=== PATIENT | male | born 1955 | race Caucasian/White ===

== ENCOUNTER 2018-12-07 08:26 | Inpatient (IN) | payer OTHER | END 2018-12-09 12:10 | disposition home or self-care (01) | LOC: ER 08:26 → ED HOLD 12:50 → SUR 3N 23:30 ==

== ENCOUNTER 2019-11-13 07:45 | Emergency (ER) | payer OTHER ==
[~2019-11-13] VITALS: Ht 177.8 cm; Wt 110.0 kg
[~2019-11-13 07:45] MED LIST: ALBU8.5H8 INH; AMLO10TA PO; ASPI-1265 PO; ATOR20TA66 PO; BUDE180A INH; GLYB5TAB7 PO; GLYC10.7 INH; IPRA3AMP31 IH; LACT1CAP26 PO; LEVO750T46 PO; LINA5TAB4 PO; LOSA100T57 PO; METF-950 PO; PRED10TA23 PO
[2019-11-13] MEDS ORDERED: ipratropium/albuterol 3ml nebule NEB ONE (08:00)
--- NOTE | 2019-11-13 08:02 | NUR ---
spoke to JUDE Daniel, regarding o2 sats 89-90% RA and if we should put pt. on O2, he said to wait until breathing tx and we will re-assess the situation.
[2019-11-13 08:32] VITALS: BP 152/87
== END 2019-11-13 08:34 | disposition home or self-care (01) ==
LOC: ER 07:45
DX: J44.9 Chronic obstructive pulmonary disease, unspecified (principal); I11.0 Hypertensive heart disease with heart failure; I50.9 Heart failure, unspecified; E11.9 Type 2 diabetes mellitus without complications; Z87.01 Personal history of pneumonia (recurrent); Z79.899 Other long term (current) drug therapy; Z79.82 Long term (current) use of aspirin
CPT/HCPCS: 71046; 94640; 94760; 99283

== ENCOUNTER 2019-11-20 08:58 | Inpatient (IN) | payer OTHER ==
[~2019-11-20] VITALS: Ht 177.8 cm; Wt 112.0 kg
[2019-11-20] MEDS ORDERED: azithromycin/NS 500mg/250ml 250 ML IV ONE (09:20)
[2019-11-20] MEDS ORDERED: normal saline 1000ML IV soln IV ONE (09:20)
[2019-11-20] MEDS ORDERED: methylPREDNISolone sod succ 125mg/2ml vial IV ONE (09:20)
[2019-11-20] MEDS ORDERED: albuterol 2.5 MG/3 ML nebule CONTNEB PRN (09:20)
[2019-11-20] MEDS ORDERED: CefTRIAXone 2gm/D5W 50ml 50 ML IV ONE (09:20)
[2019-11-20 09:49] LABS: BASOPHILS # (AUTO) 0.1 X10'3 (0-0.2); BASOPHILS % (AUTO) 0.3 % (0-1); EOSINOPHILS # (AUTO) 0.1 X10'3 (0-0.9); EOSINOPHILS % (AUTO) 0.4 % (0-6); HEMATOCRIT 45.9 % (42.0-52.0); HEMOGLOBIN 15.6 g/dl (14.0-17.9); LYMPHOCYTES % (AUTO) 6.8 % (21-51); MEAN CORPUSCULAR HEMOGLOBIN 29.4 PG (27.0-31.0); MEAN CORPUSCULAR VOLUME 86.4 FL (78-98); MEAN PLATELET VOLUME 7.9 FL (7.4-10.4); MONOCYTES # (AUTO) 0.7 X10'3 (0-0.9); MONOCYTES % (AUTO) 4.4 % (2-12); NEUTROPHILS # (AUTO) 13.1 X10'3 (1.8-7.7); NEUTROPHILS % (AUTO) 88.1 % (42-75); PLATELET COUNT 127 X10'3 (140-440); RED BLOOD COUNT 5.31 X10'6 (4.70-6.10); RED CELL DISTRIBUTION WIDTH 12.7 % (11.5-14.5); WHITE BLOOD COUNT 14.9 X10'3 (4.5-11.0)
[2019-11-20 09:56] LABS: ABG BASE EXCESS -0.9 mmol/L (-2.0-3.0); ABG HCO3 22.2 mmol/L (22.0-26.0); ABG OXYGEN SATURATION 84.1 % (95-98); ABG PCO2 (T) 32.8 mmHg (35.0-45.0); ABG PH (T) 7.449 (7.350-7.450); ABG PO2 (T) 45.8 mmHg (83-108); FCOHb 0.8 % (0.5-1.5); FLOW 4 L/min; FMetHb 0.1 % (0.3-1.12); FO2Hb 83.3 % (94-100); TOTAL HEMOGLOBIN 15.5 G/dl (14.0-17.9)
[2019-11-20 10:00] LABS: ALANINE AMINOTRANSFERASE 27 U/L (12-78); ALBUMIN 3.7 G/DL (3.4-5.0); ALKALINE PHOSPHATASE 99 IU/L (46-116); ANION GAP 11 (8-16); ASPARTATE AMINO TRANSFERASE 15 U/L (10-37); BILIRUBIN,TOTAL 0.9 MG/DL (0.1-1.0); BLOOD UREA NITROGEN 17 MG/DL (7-18); BUN/CREATININE RATIO 15.7 (5.4-32.0); CALCIUM 8.7 MG/DL (8.5-10.1); CHLORIDE 98 MMOL/L (99-107); CREATININE 1.08 MG/DL (0.60-1.10); GLUCOSE 329 MG/DL (70-104); POTASSIUM 3.6 MMOL/L (3.5-5.1); SODIUM 135 MMOL/L (135-145); TOTAL CARBON DIOXIDE 25.6 MMOL/L (24-32); TOTAL PROTEIN 7.4 G/DL (6.4-8.2); eGFR 69 ML/MIN
[2019-11-20] MEDS ORDERED: mag hydrox/Alum hydrox/simeth 30ml oral suspension PO PRN (10:50)
[2019-11-20] MEDS ORDERED: normal saline 1000ml 1,000 ML IV SCH (10:50)
[2019-11-20] MEDS ORDERED: potassium CL 10mEq/100ml bag 100 ML IV PRN ×2 (10:50)
[2019-11-20] MEDS ORDERED: ipratropium/albuterol 3ml nebule NEB PRN (10:50)
[2019-11-20] MEDS ORDERED: magnesium 4gm in 100ml NS 100 ML IV PRN (10:50)
[2019-11-20] MEDS ORDERED: magnesium hydroxide 30ml (MOM) UD suspension PO PRN (10:50)
[2019-11-20] MEDS ORDERED: dextrose 50%-water 50ml dispensing syringe IV PRN ×2 (10:50)
[2019-11-20] MEDS ORDERED: acetaminophen 325mg tablet PO PRN (10:50)
[2019-11-20] MEDS ORDERED: potassium Cl 20 mEq SR tablet PO PRN ×2 (10:50)
[2019-11-20] MEDS ORDERED: glucagon, human recombinant 1mg kit SUBCUT PRN (10:50)
[2019-11-20] MEDS ORDERED: magnesium 2GM in 50ml NS 50 ML IV PRN (10:50)
[2019-11-20] MEDS ORDERED: ondansetron/PF 4mg/2ml inj IV PRN (10:50)
[2019-11-20] MEDS ORDERED: dextrose ORAL solution 15 GM/59 ML bottle PO PRN ×2 (10:50)
[2019-11-20] MEDS ORDERED: MESSAGE TO PHARMACY PO ONE (10:50)
[2019-11-20] MEDS ORDERED: iohexol 350MG/ML 100ml bottle IV ONE (10:56)
[2019-11-20] MEDS ORDERED: furosemide 10 MG/1 ML 10ml inj IV ONE (11:30)
[2019-11-20] MEDS ORDERED: oseltamivir phos 75mg capsule PO ONE (11:45)
[2019-11-20] MEDS ORDERED: heparin 10,000 units/1 ML INJ IV ONE (12:25)
[2019-11-20] MEDS ORDERED: heparin 25,000 UNIT/250ml bag 250 ML IV SCH (12:25)
[2019-11-20] MEDS ORDERED: OMEG1CAP2 PO (12:50)
[2019-11-20] MEDS: heparin 25,000 UNIT/250ml bag 250 ML IV SCH (13:28)
[2019-11-20] MEDS: piperacillin/tazo 4.5gm/100ml 100 ML IV SCH (16:00)
--- NOTE | 2019-11-20 16:33 | NUR ---
Patient in room ED 13. I have received report from Ashleigh HERNÁNDEZ and had the opportunity to ask questions and assume patient care.
[2019-11-20 17:00] VITALS: BP 116/71
--- NOTE | 2019-11-20 17:00 | NUR ---
Patient arrived to the unit accompanied by ED personnel. Placed in iso room, telemetry monitoring initiated, vital signs obtained, 2 RN skin check complete, patient belongings placed in closet, and patient oriented to room and call light. Heparin gtt running at 2000units/hr. Zosyn that was due at 1600 was not delivered with patient. Will administer when it arrives. Addendum: 11/20/19 at 1812 by Trina Welsh RN 2 RN skin check completed with Tara Capps RN, she was flexed off work early before cosigning 2 RN skin check. No skin issues found.
[2019-11-20] MEDS: methylPREDNISolone sod succ/PF 40mg inj. IV SCH (17:15)
[2019-11-20 18:30] VITALS: BP 112/65
--- NOTE | 2019-11-20 18:30 | NUR ---
Problems reprioritized. Patient report given, questions answered & plan of care reviewed with Emely HERNÁNDEZ.
[2019-11-20] MEDS: insulin Lispro (HumaLOG) vial - multi-dose SQ SCH ×2 (18:57→21:16)
[2019-11-20] MEDS: K and/or MAG REPLACEMENT MC SCH (19:36)
[2019-11-20] MEDS: oseltamivir phos 75mg capsule PO SCH (19:45)
[2019-11-20] MEDS: insulin glargine (Lantus) pen - multi-dose SQ SCH (21:15)
[2019-11-20 22:30] VITALS: BP 109/69
[2019-11-21] MEDS: methylPREDNISolone sod succ/PF 40mg inj. IV SCH ×3 (00:41→18:39)
[2019-11-21] MEDS: piperacillin/tazo 4.5gm/100ml 100 ML IV SCH ×3 (00:41→16:00)
[2019-11-21] MEDS: heparin 25,000 UNIT/250ml bag 250 ML IV SCH ×2 (01:12→09:32)
[2019-11-21 01:29] LABS: BASOPHILS % (AUTO) 0.5 % (0-1); EOSINOPHILS % (AUTO) 0.1 % (0-6); HEMATOCRIT 42.3 % (42.0-52.0); HEMOGLOBIN 14.2 g/dl (14.0-17.9); LYMPHOCYTES # (AUTO) 0.8 X10'3 (1.1-4.8); LYMPHOCYTES % (AUTO) 9.3 % (21-51); MEAN CORPUSCULAR HEMOGLOBIN 29.1 PG (27.0-31.0); MEAN CORPUSCULAR HGB CONC 33.5 g/dL (33.0-36.5); MEAN CORPUSCULAR VOLUME 86.9 FL (78-98); MEAN PLATELET VOLUME 8.2 FL (7.4-10.4); MONOCYTES # (AUTO) 0.2 X10'3 (0-0.9); NEUTROPHILS # (AUTO) 7.1 X10'3 (1.8-7.7); NEUTROPHILS % (AUTO) 87.1 % (42-75); PLATELET COUNT 118 X10'3 (140-440); RED BLOOD COUNT 4.87 X10'6 (4.70-6.10); RED CELL DISTRIBUTION WIDTH 12.8 % (11.5-14.5); WHITE BLOOD COUNT 8.2 X10'3 (4.5-11.0)
[2019-11-21 01:31] LABS: ALANINE AMINOTRANSFERASE 31 U/L (12-78); ALBUMIN/GLOBULIN RATIO 0.9 (1.1-1.5); ALKALINE PHOSPHATASE 86 IU/L (46-116); ANION GAP 9 (8-16); ASPARTATE AMINO TRANSFERASE 17 U/L (10-37); BILIRUBIN,TOTAL 0.5 MG/DL (0.1-1.0); BLOOD UREA NITROGEN 21 MG/DL (7-18); BUN/CREATININE RATIO 22.6 (5.4-32.0); CALCIUM 7.8 MG/DL (8.5-10.1); CHLORIDE 106 MMOL/L (99-107); CREATININE 0.93 MG/DL (0.60-1.10); GLUCOSE 340 MG/DL (70-104); POTASSIUM 3.9 MMOL/L (3.5-5.1); SODIUM 139 MMOL/L (135-145); TOTAL CARBON DIOXIDE 24.2 MMOL/L (24-32); TOTAL PROTEIN 6.5 G/DL (6.4-8.2); eGFR 82 ML/MIN
[2019-11-21 01:34] LABS: MAGNESIUM 1.9 MG/DL (1.5-2.4)
[2019-11-21 02:30] VITALS: BP 133/73
--- NOTE | 2019-11-21 06:12 | NUR ---
Patient in room PCU 3008. I have received report from Emely HERNÁNDEZ and had the opportunity to ask questions and assume patient care.
--- NOTE | 2019-11-21 06:16 | NUR ---
Problems reprioritized. Patient report given, questions answered & plan of care reviewed with Trina HERNÁNDEZ.
[2019-11-21 07:00] VITALS: BP 136/69
[2019-11-21] MEDS ORDERED: enoxaparin 40mg/0.4ml syringe SQ SCH (08:00)
[2019-11-21] MEDS: K and/or MAG REPLACEMENT MC SCH ×2 (08:00→20:00)
[2019-11-21] MEDS: insulin Lispro (HumaLOG) vial - multi-dose SQ SCH ×4 (08:28→20:51)
[2019-11-21] MEDS: oseltamivir phos 75mg capsule PO SCH ×2 (09:21→20:49)
[2019-11-21] MEDS: heparin 10,000 units/1 ML INJ IV PRN (09:30)
[2019-11-21 11:00] VITALS: BP 143/83
[2019-11-21 15:00] VITALS: BP 135/66
[2019-11-21 18:00] VITALS: BP 132/73
--- NOTE | 2019-11-21 18:28 | NUR ---
Problems reprioritized. Patient report given, questions answered & plan of care reviewed with Emely HERNÁNDEZ.
[2019-11-21] MEDS: lactobacillus rhamnosus 10,000 MMU CELLS/CAPSULE PO SCH (20:49)
[2019-11-21] MEDS: insulin glargine (Lantus) pen - multi-dose SQ SCH (20:52)
--- NOTE | 2019-11-21 21:05 | NUR ---
Missed dose zosyn due to medication being unavailable after day shift RN messaged pharmacy. Will administer 0000 dose now that med is available.
[2019-11-21 22:00] VITALS: BP 136/74
[2019-11-22] VITALS (9 sets, daily range): BP systolic 123–155; BP diastolic 63–79
[2019-11-22] MEDS: heparin 25,000 UNIT/250ml bag 250 ML IV SCH ×3 (02:12→16:31)
[2019-11-22 05:14] LABS: BASOPHILS % (AUTO) 0.1 % (0-1); EOSINOPHILS % (AUTO) 0 % (0-6); HEMATOCRIT 41.4 % (42.0-52.0); HEMOGLOBIN 14.1 g/dl (14.0-17.9); LYMPHOCYTES # (AUTO) 0.8 X10'3 (1.1-4.8); MEAN CORPUSCULAR HEMOGLOBIN 29.8 PG (27.0-31.0); MEAN CORPUSCULAR HGB CONC 34.2 g/dL (33.0-36.5); MEAN CORPUSCULAR VOLUME 87.1 FL (78-98); MEAN PLATELET VOLUME 8.1 FL (7.4-10.4); MONOCYTES # (AUTO) 0.3 X10'3 (0-0.9); MONOCYTES % (AUTO) 2.4 % (2-12); NEUTROPHILS % (AUTO) 91.5 % (42-75); PLATELET COUNT 135 X10'3 (140-440); RED BLOOD COUNT 4.75 X10'6 (4.70-6.10); WHITE BLOOD COUNT 13.1 X10'3 (4.5-11.0)
[2019-11-22 05:29] LABS: ALANINE AMINOTRANSFERASE 32 U/L (12-78); ALBUMIN 3.3 G/DL (3.4-5.0); ALBUMIN/GLOBULIN RATIO 0.9 (1.1-1.5); ALKALINE PHOSPHATASE 83 IU/L (46-116); ANION GAP 7 (8-16); ASPARTATE AMINO TRANSFERASE 15 U/L (10-37); BILIRUBIN,TOTAL 0.6 MG/DL (0.1-1.0); BLOOD UREA NITROGEN 32 MG/DL (7-18); BUN/CREATININE RATIO 31.7 (5.4-32.0); CALCIUM 8.1 MG/DL (8.5-10.1); CHLORIDE 104 MMOL/L (99-107); CREATININE 1.01 MG/DL (0.60-1.10); GLUCOSE 212 MG/DL (70-104); MAGNESIUM 2.3 MG/DL (1.5-2.4); POTASSIUM 4.5 MMOL/L (3.5-5.1); SODIUM 140 MMOL/L (135-145); TOTAL CARBON DIOXIDE 28.8 MMOL/L (24-32); TOTAL PROTEIN 6.8 G/DL (6.4-8.2); eGFR 74 ML/MIN
--- NOTE | 2019-11-22 06:20 | NUR ---
Problems reprioritized. Patient report given, questions answered & plan of care reviewed with Lindsay HERNÁNDEZ.
--- NOTE | 2019-11-22 06:33 | NUR ---
Patient in room PCU 3008. I have received report from Emely HERNÁNDEZ and had the opportunity to ask questions and assume patient care, patient stable at transfer.
--- NOTE | 2019-11-22 06:35 | NUR ---
Patient in room PCU 3008. I have received report from EDGAR Han and had the opportunity to ask questions and assume patient care.
[2019-11-22] MEDS: K and/or MAG REPLACEMENT MC SCH ×2 (08:00→20:00)
[2019-11-22] MEDS: oseltamivir phos 75mg capsule PO SCH ×2 (08:06→20:01)
[2019-11-22] MEDS: methylPREDNISolone sod succ/PF 40mg inj. IV SCH ×3 (08:06→18:54)
[2019-11-22] MEDS: lactobacillus rhamnosus 10,000 MMU CELLS/CAPSULE PO SCH ×2 (08:07→20:01)
[2019-11-22] MEDS: piperacillin/tazo 4.5gm/100ml 100 ML IV SCH ×3 (08:08→16:00)
[2019-11-22] MEDS: insulin Lispro (HumaLOG) vial - multi-dose SQ SCH ×3 (08:30→22:22)
--- NOTE | 2019-11-22 10:00 | NUR ---
Patient in room PCU 3008. I have received report from Lindsay HERNÁNDEZ and had the opportunity to ask questions and assume patient care. Assumed care for Pt. at 10:00
--- NOTE | 2019-11-22 10:13 | NUR ---
Problems reprioritized. Patient report given, questions answered & plan of care reviewed with EDGAR Tinoco. All patient needs have been met at this time.
--- NOTE | 2019-11-22 10:56 | NUR ---
Paged RT at Dr Tang's request for ABG
[2019-11-22 11:46] LABS: ABG BASE EXCESS -0.2 mmol/L (-2.0-3.0); ABG HCO3 24.1 mmol/L (22.0-26.0); ABG OXYGEN SATURATION 91.4 % (95-98); ABG PCO2 (T) 38.4 mmHg (35.0-45.0); ABG PH (T) 7.415 (7.350-7.450); ABG PO2 (T) 60.6 mmHg (83-108); ALLEN'S TEST Yes; FCOHb 0.5 % (0.5-1.5); FLOW 2 L/min; FO2Hb 90.9 % (94-100); TOTAL HEMOGLOBIN 14.3 G/dl (14.0-17.9)
[2019-11-22] MEDS ORDERED: tPA-cathflo 2mg/2ml IV flush 4 MG in normal saline 100ml IV soln 100 ML ICATH SCH ×4 (14:27)
[2019-11-22] MEDS ORDERED: heparin 1,000 UNITS/NS 500ml 500 ML ICATH ONE (14:30)
[2019-11-22] MEDS ORDERED: fentaNYL/PF 50MCG/1 ML 2ML syringe IV PRN (14:30)
[2019-11-22] MEDS ORDERED: LIDOcaine 1%/PF 5ML 10 MG/ML VIAL SQ ONE (14:30)
[2019-11-22] MEDS: normal saline 1000ml 1,000 ML IV SCH ×2 (14:52→23:01)
[2019-11-22] MEDS: heparin 1,000 UNITS/NS 500ml 500 ML IV SCH ×3 (14:52→17:03)
[2019-11-22] MEDS ORDERED: LIDOcaine 1% (10mg/ml) 2ml vial SQ ONE (14:55)
[2019-11-22] MEDS ORDERED: tPA-cathflo 2 MG/2 ml IV flush ICATH ONE ×2 (15:00)
[2019-11-22] MEDS ORDERED: diphenhydrAMINE 50 mg/ml inj ONE (15:16)
[2019-11-22] MEDS ORDERED: LIDOcaine 1%/PF 5ML 10 MG/ML VIAL ONE (15:17)
[2019-11-22] MEDS ORDERED: hydrALAZINE 20mg/ml inj. IV ONE (15:18)
[2019-11-22] MEDS ORDERED: iohexol 300mg/ml 100ml inj. ONE (15:18)
[2019-11-22] MEDS ORDERED: heparin 1,000 UNITS/NS 500ml 1,500 ML ONE (15:19)
[2019-11-22] MEDS: tPA-cathflo 2mg/2ml IV flush 4 MG in normal saline 100ml IV soln 100 ML ICATH SCH ×8 (15:20→19:37)
--- NOTE | 2019-11-22 15:24 | NUR ---
Problems reprioritized. Patient report given, questions answered & plan of care reviewed with Yancy HERNÁNDEZ ICU.
--- NOTE | 2019-11-22 18:47 | NUR ---
Patient in room ICU 2043. I have received report from Yancy HERNÁNDEZ, and had the opportunity to ask questions and assume patient care.
[2019-11-22 19:04] LABS: PARTIAL THROMBOPLASTIN TIME 43 SECONDS (22-32)
[2019-11-22] MEDS: insulin glargine (Lantus) pen - multi-dose SQ SCH (22:21)
[2019-11-23] VITALS (25 sets, daily range): BP systolic 101–187; BP diastolic 53–150
[2019-11-23] MEDS: tPA-cathflo 2mg/2ml IV flush 4 MG in normal saline 100ml IV soln 100 ML ICATH SCH ×20 (00:29→17:28)
[2019-11-23] MEDS: piperacillin/tazo 4.5gm/100ml 100 ML IV SCH ×4 (00:29→23:42)
[2019-11-23] MEDS: methylPREDNISolone sod succ/PF 40mg inj. IV SCH ×4 (00:31→23:42)
[2019-11-23 00:36] LABS: BASOPHILS % (AUTO) 0.1 % (0-1); EOSINOPHILS % (AUTO) 0 % (0-6); HEMOGLOBIN 13.7 g/dl (14.0-17.9); LYMPHOCYTES # (AUTO) 0.7 X10'3 (1.1-4.8); LYMPHOCYTES % (AUTO) 6.6 % (21-51); MEAN CORPUSCULAR HEMOGLOBIN 29.7 PG (27.0-31.0); MEAN CORPUSCULAR HGB CONC 34.2 g/dL (33.0-36.5); MEAN CORPUSCULAR VOLUME 86.9 FL (78-98); MONOCYTES # (AUTO) 0.3 X10'3 (0-0.9); MONOCYTES % (AUTO) 3.3 % (2-12); NEUTROPHILS # (AUTO) 9.3 X10'3 (1.8-7.7); PLATELET COUNT 107 X10'3 (140-440); RED BLOOD COUNT 4.61 X10'6 (4.70-6.10); RED CELL DISTRIBUTION WIDTH 12.8 % (11.5-14.5); WHITE BLOOD COUNT 10.3 X10'3 (4.5-11.0)
[2019-11-23 00:40] LABS: PARTIAL THROMBOPLASTIN TIME 33 SECONDS (22-32)
[2019-11-23 00:43] LABS: ALANINE AMINOTRANSFERASE 34 U/L (12-78); ALBUMIN/GLOBULIN RATIO 0.9 (1.1-1.5); ALKALINE PHOSPHATASE 73 IU/L (46-116); ANION GAP 7 (8-16); ASPARTATE AMINO TRANSFERASE 16 U/L (10-37); BILIRUBIN,TOTAL 0.7 MG/DL (0.1-1.0); BLOOD UREA NITROGEN 26 MG/DL (7-18); BUN/CREATININE RATIO 32.9 (5.4-32.0); CALCIUM 7.5 MG/DL (8.5-10.1); CHLORIDE 106 MMOL/L (99-107); CREATININE 0.79 MG/DL (0.60-1.10); GLUCOSE 275 MG/DL (70-104); MAGNESIUM 2.2 MG/DL (1.5-2.4); POTASSIUM 4.4 MMOL/L (3.5-5.1); SODIUM 139 MMOL/L (135-145); TOTAL CARBON DIOXIDE 25.6 MMOL/L (24-32); TOTAL PROTEIN 6.2 G/DL (6.4-8.2); eGFR > 90 ML/MIN
[2019-11-23] MEDS: heparin 1,000 UNITS/NS 500ml 500 ML IV SCH ×3 (03:22→04:42)
--- NOTE | 2019-11-23 06:50 | NUR ---
Problems reprioritized. Patient report given, questions answered & plan of care reviewed with Juan HERNÁNDEZ.
[2019-11-23 07:22] LABS: HEMATOCRIT 40.9 % (42.0-52.0); HEMOGLOBIN 13.9 g/dl (14.0-17.9); MEAN CORPUSCULAR HEMOGLOBIN 29.5 PG (27.0-31.0); MEAN CORPUSCULAR VOLUME 86.6 FL (78-98); PLATELET COUNT 105 X10'3 (140-440); RED BLOOD COUNT 4.72 X10'6 (4.70-6.10); RED CELL DISTRIBUTION WIDTH 13.1 % (11.5-14.5); WHITE BLOOD COUNT 9.1 X10'3 (4.5-11.0)
[2019-11-23 07:26] LABS: PARTIAL THROMBOPLASTIN TIME 33 SECONDS (22-32)
[2019-11-23] MEDS: K and/or MAG REPLACEMENT MC SCH ×2 (08:00→20:00)
[2019-11-23] MEDS: insulin Lispro (HumaLOG) vial - multi-dose SQ SCH ×4 (08:58→21:20)
[2019-11-23] MEDS: lactobacillus rhamnosus 10,000 MMU CELLS/CAPSULE PO SCH ×2 (09:02→19:09)
[2019-11-23] MEDS: heparin 25,000 UNIT/250ml bag 250 ML IV SCH ×2 (09:02→19:30)
[2019-11-23] MEDS: oseltamivir phos 75mg capsule PO SCH ×2 (09:02→19:09)
[2019-11-23 10:08] LABS: HEMOGLOBIN 14.7 g/dl (14.0-17.9); MEAN CORPUSCULAR HEMOGLOBIN 29.7 PG (27.0-31.0); MEAN CORPUSCULAR HGB CONC 34.1 g/dL (33.0-36.5); MEAN CORPUSCULAR VOLUME 87.1 FL (78-98); MEAN PLATELET VOLUME 7.9 FL (7.4-10.4); PLATELET COUNT 119 X10'3 (140-440); RED BLOOD COUNT 4.94 X10'6 (4.70-6.10); RED CELL DISTRIBUTION WIDTH 12.9 % (11.5-14.5); WHITE BLOOD COUNT 8.8 X10'3 (4.5-11.0)
[2019-11-23] MEDS ORDERED: ipratropium/albuterol 3ml nebule IH PRN (13:05)
--- NOTE | 2019-11-23 14:23 | NUR ---
Patient with previous A1c 9.9 recent admission 11/08/19; at that time patient was seen by RD for written and verbal education. At that time pt reported he knows what kind of dietary changes he needs to do in order to better manage his DM. Pt was provided with written and verbal DM education with referral to outpatient DM class and RD contact information. No need for additional education at this time. Currently with heart healthy, carb controlled diet. Will continue to follow. Addendum: 11/23/19 at [address] Amended: Links added.
[2019-11-23] MEDS: albuterol 2.5 MG/3 ML nebule NEB SCH ×3 (15:32→23:07)
[2019-11-23 16:38] LABS: HEMATOCRIT 41.1 % (42.0-52.0); HEMOGLOBIN 14.1 g/dl (14.0-17.9); MEAN CORPUSCULAR HEMOGLOBIN 29.8 PG (27.0-31.0); MEAN CORPUSCULAR HGB CONC 34.2 g/dL (33.0-36.5); MEAN CORPUSCULAR VOLUME 87.2 FL (78-98); MEAN PLATELET VOLUME 7.9 FL (7.4-10.4); PLATELET COUNT 113 X10'3 (140-440); RED BLOOD COUNT 4.72 X10'6 (4.70-6.10); RED CELL DISTRIBUTION WIDTH 12.6 % (11.5-14.5); WHITE BLOOD COUNT 9.3 X10'3 (4.5-11.0)
[2019-11-23 16:56] LABS: PARTIAL THROMBOPLASTIN TIME 30 SECONDS (22-32)
[2019-11-23 18:14] LABS: PARTIAL THROMBOPLASTIN TIME 29 SECONDS (22-32)
--- NOTE | 2019-11-23 18:25 | NUR ---
Patient in room ICU 2043. I have received report from Yamilex HERNÁNDEZ and had the opportunity to ask questions and assume patient care.
[2019-11-23] MEDS: OMEGA-3/DHA/EPA/FISH OIL 1 EACH CAPSULE.DR PO SCH (19:09)
[2019-11-23] MEDS: heparin 10,000 units/1 ML INJ IV PRN (19:16)
[2019-11-23] MEDS: budesonide 0.5mg/2ml UD nebule IH SCH (19:27)
[2019-11-23] MEDS: insulin glargine (Lantus) pen - multi-dose SQ SCH (21:19)
[2019-11-23 22:12] LABS: HEMATOCRIT 39.6 % (42.0-52.0); HEMOGLOBIN 13.5 g/dl (14.0-17.9); MEAN CORPUSCULAR HEMOGLOBIN 29.6 PG (27.0-31.0); MEAN PLATELET VOLUME 7.8 FL (7.4-10.4); PLATELET COUNT 101 X10'3 (140-440); RED BLOOD COUNT 4.55 X10'6 (4.70-6.10); RED CELL DISTRIBUTION WIDTH 12.7 % (11.5-14.5); WHITE BLOOD COUNT 8.3 X10'3 (4.5-11.0)
[2019-11-24] VITALS (18 sets, daily range): BP systolic 122–167; BP diastolic 51–76
[2019-11-24] MEDS ORDERED: amLODIPine 5mg tablet PO SCH ×2 (00:23→21:00)
[2019-11-24] MEDS ORDERED: amLODIPine 5mg tablet PO ONE (00:25)
[2019-11-24 02:03] LABS: BASOPHILS % (AUTO) 0.2 % (0-1); EOSINOPHILS % (AUTO) 0 % (0-6); HEMATOCRIT 39.6 % (42.0-52.0); HEMOGLOBIN 13.6 g/dl (14.0-17.9); LYMPHOCYTES # (AUTO) 0.7 X10'3 (1.1-4.8); LYMPHOCYTES % (AUTO) 8.9 % (21-51); MEAN CORPUSCULAR HEMOGLOBIN 29.7 PG (27.0-31.0); MEAN CORPUSCULAR HGB CONC 34.4 g/dL (33.0-36.5); MEAN CORPUSCULAR VOLUME 86.2 FL (78-98); MEAN PLATELET VOLUME 7.8 FL (7.4-10.4); MONOCYTES # (AUTO) 0.4 X10'3 (0-0.9); MONOCYTES % (AUTO) 5.4 % (2-12); NEUTROPHILS # (AUTO) 6.4 X10'3 (1.8-7.7); NEUTROPHILS % (AUTO) 85.5 % (42-75); PLATELET COUNT 96 X10'3 (140-440); RED BLOOD COUNT 4.59 X10'6 (4.70-6.10); RED CELL DISTRIBUTION WIDTH 12.8 % (11.5-14.5); WHITE BLOOD COUNT 7.5 X10'3 (4.5-11.0)
[2019-11-24 02:10] LABS: ALANINE AMINOTRANSFERASE 29 U/L (12-78); ALKALINE PHOSPHATASE 71 IU/L (46-116); ANION GAP 1 (8-16); ASPARTATE AMINO TRANSFERASE 13 U/L (10-37); BILIRUBIN,TOTAL 0.6 MG/DL (0.1-1.0); BLOOD UREA NITROGEN 20 MG/DL (7-18); BUN/CREATININE RATIO 24.1 (5.4-32.0); CALCIUM 7.8 MG/DL (8.5-10.1); CHLORIDE 108 MMOL/L (99-107); CREATININE 0.83 MG/DL (0.60-1.10); GLUCOSE 199 MG/DL (70-104); MAGNESIUM 2.2 MG/DL (1.5-2.4); POTASSIUM 3.9 MMOL/L (3.5-5.1); SODIUM 138 MMOL/L (135-145); TOTAL CARBON DIOXIDE 28.9 MMOL/L (24-32); TOTAL PROTEIN 6.1 G/DL (6.4-8.2); eGFR > 90 ML/MIN
[2019-11-24] MEDS: albuterol 2.5 MG/3 ML nebule NEB SCH ×6 (03:32→23:08)
--- NOTE | 2019-11-24 05:23 | NUR ---
END NOC NOTE Patient was not able to sleep much tonight. DVT ptt was in therapeutic range at 0130. Patient refused bath and bed linen change, stating he wants to get some rest. Patient's diet is changed to carbohydrate controlled and heart healthy, still level 6 on hyperglycemic protocol. Amlodipine 10mg changed to HS per patient's medication rec. Will continue to monitor.
--- NOTE | 2019-11-24 06:33 | NUR ---
Problems reprioritized. Patient report given, questions answered & plan of care reviewed with Raul HERNÁNDEZ. Addendum: 11/24/19 at 0637 by Caren Greene RN reviewed with Alex HERNÁNDEZ.
--- NOTE | 2019-11-24 06:57 | NUR ---
5Patient in room ICU 2043. I have received report from Caren HERNÁNDEZ and had the opportunity to ask questions and assume patient care.
[2019-11-24] MEDS: K and/or MAG REPLACEMENT MC SCH ×2 (08:00→20:00)
[2019-11-24] MEDS: budesonide 0.5mg/2ml UD nebule IH SCH ×2 (08:26→19:50)
[2019-11-24] MEDS: lactobacillus rhamnosus 10,000 MMU CELLS/CAPSULE PO SCH ×2 (08:41→20:22)
[2019-11-24] MEDS: OMEGA-3/DHA/EPA/FISH OIL 1 EACH CAPSULE.DR PO SCH ×2 (08:41→20:22)
[2019-11-24] MEDS: losartan 50mg tablet PO SCH (08:41)
[2019-11-24] MEDS: methylPREDNISolone sod succ/PF 40mg inj. IV SCH ×2 (08:41→16:01)
[2019-11-24] MEDS: aspirin 81mg tablet.DR PO SCH (08:41)
[2019-11-24] MEDS: piperacillin/tazo 4.5gm/100ml 100 ML IV SCH ×2 (08:42→16:02)
[2019-11-24] MEDS: oseltamivir phos 75mg capsule PO SCH ×2 (08:42→21:16)
[2019-11-24] MEDS: pantoprazole 40mg Tablet.DR PO SCH (08:46)
[2019-11-24] MEDS: insulin Lispro (HumaLOG) vial - multi-dose SQ SCH ×4 (08:58→21:25)
[2019-11-24] MEDS: heparin 10,000 units/1 ML INJ IV PRN (09:18)
[2019-11-24] MEDS: apixaban 5mg tablet PO SCH ×2 (12:21→20:22)
--- NOTE | 2019-11-24 14:42 | NUR ---
Problems reprioritized. Patient report given, questions answered & plan of care reviewed with Ann Caldwell RN.
--- NOTE | 2019-11-24 15:05 | NUR ---
Patient arrived to room 3008 from ICU. Patient vital signs are BP 130/65, RR 16, temp. 97.7, HR 68, pain 0/10. Bed locked and lowered, nonskid socks on, call light in reach, and in no acute distress.
--- NOTE | 2019-11-24 15:09 | NUR ---
Pt ambulated down to 3008 with belongings, on tele, in stable condition.
--- NOTE | 2019-11-24 18:39 | NUR ---
Problems reprioritized. Patient report given, questions answered & plan of care reviewed with EDGAR Kennedy. Patient stable at transfer of care.
--- NOTE | 2019-11-24 19:00 | NUR ---
Patient in room PCU 3008. I have received report from Re HERNÁNDEZ and had the opportunity to ask questions and assume patient care.
[2019-11-24] MEDS: insulin glargine (Lantus) pen - multi-dose SQ SCH (21:21)
[2019-11-25] MEDS: methylPREDNISolone sod succ/PF 40mg inj. IV SCH ×2 (00:35→07:26)
[2019-11-25] MEDS: piperacillin/tazo 4.5gm/100ml 100 ML IV SCH ×2 (00:35→08:54)
[2019-11-25 02:00] VITALS: BP 136/69
[2019-11-25] MEDS: albuterol 2.5 MG/3 ML nebule NEB SCH ×3 (03:07→11:05)
--- NOTE | 2019-11-25 06:17 | NUR ---
Patient in room PCU 3008. I have received report from EDGAR Kennedy and had the opportunity to ask questions and assume patient care. Patient awake and in no acute distress.
--- NOTE | 2019-11-25 06:31 | NUR ---
Problems reprioritized. Patient report given, questions answered & plan of care reviewed with Re HERNÁNDEZ.
[2019-11-25 06:36] LABS: BASOPHILS % (AUTO) 0.1 % (0-1); EOSINOPHILS % (AUTO) 0 % (0-6); HEMATOCRIT 38.2 % (42.0-52.0); HEMOGLOBIN 13.2 g/dl (14.0-17.9); LYMPHOCYTES # (AUTO) 0.7 X10'3 (1.1-4.8); LYMPHOCYTES % (AUTO) 10.2 % (21-51); MEAN CORPUSCULAR HEMOGLOBIN 29.8 PG (27.0-31.0); MEAN CORPUSCULAR HGB CONC 34.5 g/dL (33.0-36.5); MEAN CORPUSCULAR VOLUME 86.2 FL (78-98); MEAN PLATELET VOLUME 7.7 FL (7.4-10.4); MONOCYTES # (AUTO) 0.3 X10'3 (0-0.9); MONOCYTES % (AUTO) 4.6 % (2-12); NEUTROPHILS # (AUTO) 5.7 X10'3 (1.8-7.7); NEUTROPHILS % (AUTO) 85.1 % (42-75); PLATELET COUNT 107 X10'3 (140-440); RED BLOOD COUNT 4.43 X10'6 (4.70-6.10); RED CELL DISTRIBUTION WIDTH 12.7 % (11.5-14.5); WHITE BLOOD COUNT 6.7 X10'3 (4.5-11.0)
[2019-11-25 07:00] VITALS: BP 142/68
[2019-11-25 07:10] LABS: ALANINE AMINOTRANSFERASE 29 U/L (12-78); ALBUMIN 3.1 G/DL (3.4-5.0); ALKALINE PHOSPHATASE 64 IU/L (46-116); ANION GAP 7 (8-16); ASPARTATE AMINO TRANSFERASE 14 U/L (10-37); BILIRUBIN,TOTAL 0.7 MG/DL (0.1-1.0); BLOOD UREA NITROGEN 18 MG/DL (7-18); BUN/CREATININE RATIO 20.2 (5.4-32.0); CALCIUM 8.3 MG/DL (8.5-10.1); CHLORIDE 105 MMOL/L (99-107); CREATININE 0.89 MG/DL (0.60-1.10); GLUCOSE 307 MG/DL (70-104); MAGNESIUM 2.1 MG/DL (1.5-2.4); POTASSIUM 4.4 MMOL/L (3.5-5.1); SODIUM 140 MMOL/L (135-145); TOTAL CARBON DIOXIDE 28.3 MMOL/L (24-32); TOTAL PROTEIN 6.2 G/DL (6.4-8.2); eGFR 86 ML/MIN
[2019-11-25] MEDS: pantoprazole 40mg Tablet.DR PO SCH (07:25)
[2019-11-25] MEDS: OMEGA-3/DHA/EPA/FISH OIL 1 EACH CAPSULE.DR PO SCH (07:25)
[2019-11-25] MEDS: lactobacillus rhamnosus 10,000 MMU CELLS/CAPSULE PO SCH (07:25)
[2019-11-25] MEDS: losartan 50mg tablet PO SCH (07:26)
[2019-11-25] MEDS: apixaban 5mg tablet PO SCH (07:26)
[2019-11-25] MEDS: aspirin 81mg tablet.DR PO SCH (07:26)
[2019-11-25] MEDS: K and/or MAG REPLACEMENT MC SCH (08:00)
[2019-11-25] MEDS ORDERED: linagliptin 5mg tablet PO SCH (08:00)
[2019-11-25] MEDS: budesonide 0.5mg/2ml UD nebule IH SCH (08:42)
[2019-11-25] MEDS: oseltamivir phos 75mg capsule PO SCH (08:53)
--- NOTE | 2019-11-25 08:54 | NUR ---
Zosyn administered, bar code wouldn't scan.
[2019-11-25 11:00] VITALS: BP 157/82
[2019-11-25] MEDS ORDERED: APIX5TAB3 PO (13:44)
[2019-11-25] MEDS ORDERED: CEFD300C3 PO (13:44)
--- NOTE | 2019-11-25 14:54 | NUR ---
Paged Dr. Coe regarding work note for patient. PAGER ID: [phone] MESSAGE: [phone]. Pritesh Tran. Can you please write a work note for patient before discharge? Patient would like 1 week off. Thank you. Re HERNÁNDEZ x [phone]
--- NOTE | 2019-11-25 15:30 | NUR ---
Patient stable for discharge per MD orders. All discharge instructions reviewed and all questions answered. New prescriptions were called in to [facility] in [place] since [facility] in [place] was closed. Deann betancourtpon included in discharge packet. Work note for 1 week off included in discharge packet as well. PIV discontinued and cannula intact. cryptanalyst discontinued. Patient wheeled down to lobby and left via private vehicle.
== END 2019-11-25 15:30 | disposition home or self-care (01) | DRG 871 ==
LOC: ER 08:58 → ED HOLD 10:50 → PCU 3S 17:02 → ICU 2S 11-22 17:17 → PCU 3S 11-24 15:02
PROVIDERS: ADMIT Family Medicine; ATTEND Hospitalist
PROC: B32T1ZZ Computerized Tomography (CT Scan) of Left Pulmonary Artery using Low Osmolar Contrast (ICD-10-PCS; 2019-11-20)
PROC: B3201ZZ Computerized Tomography (CT Scan) of Thoracic Aorta using Low Osmolar Contrast (ICD-10-PCS; 2019-11-20)
PROC: B32S1ZZ Computerized Tomography (CT Scan) of Right Pulmonary Artery using Low Osmolar Contrast (ICD-10-PCS; 2019-11-20)
PROC: B31T1ZZ Fluoroscopy of Left Pulmonary Artery using Low Osmolar Contrast (ICD-10-PCS; principal; 2019-11-22)
PROC: 3E05317 Introduction of Other Thrombolytic into Peripheral Artery, Percutaneous Approach (ICD-10-PCS; 2019-11-22)
DX: A41.9 Sepsis, unspecified organism (principal); I26.02 Saddle embolus of pulmonary artery with acute cor pulmonale; J96.21 Acute and chronic respiratory failure with hypoxia; J18.9 Pneumonia, unspecified organism; I50.32 Chronic diastolic (congestive) heart failure; I82.432 Acute embolism and thrombosis of left popliteal vein; I82.442 Acute embolism and thrombosis of left tibial vein; J44.0 Chronic obstructive pulmonary disease with (acute) lower respiratory infection; J44.1 Chronic obstructive pulmonary disease with (acute) exacerbation; E11.9 Type 2 diabetes mellitus without complications; I11.0 Hypertensive heart disease with heart failure; Y95 Nosocomial condition; Z83.3 Family history of diabetes mellitus; Z87.891 Personal history of nicotine dependence; Z79.899 Other long term (current) drug therapy
CPT/HCPCS: 36014; 36015; 36415; 36600; 37211; 71045; 71275; 75741; 76937; 80053; 82803; 82948; 83605; 83735; 84145; 84484; 85018; 85025; 85027; 85384; 85730; 87040; 87081; 87502; 87503; 92508; 92616; 93005; 93308; 93970; 94640; 94667; 94668; 94760; 97116; 97161; 97530; C1729; C1751; C1769; C1894; G0378; J0360; J0456; J0696; J1200; J1644; J1815; J1940; J2543; J2920; J2930; J2997; J7030; J7626; Q9967

== ENCOUNTER 2021-04-08 08:26 | Day surgery (SDC) | payer MEDICARE ==
[2021-04-08] VITALS (14 sets, daily range): BP systolic 126–179; BP diastolic 72–89
[~2021-04-08] VITALS: Ht 182.9 cm; Wt 124.7 kg
[~2021-04-08 08:26] MED LIST changes: +APIX5TAB3 PO; -ATOR20TA66 PO; -LACT1CAP26 PO; -LEVO750T46 PO; -METF-950 PO; +OMEG1CAP2 PO; -PRED10TA23 PO
[2021-04-08] MEDS ORDERED: normal saline 1000ml 1,000 ML IV PRN (08:55)
[2021-04-08] MEDS ORDERED: ATOR10TA70 PO (09:18)
[2021-04-08] MEDS ORDERED: ALBU8HFA PO (09:18)
[2021-04-08] MEDS ORDERED: CARB1TAB36 PO (09:18)
[2021-04-08] MEDS ORDERED: MELA3TAB39 PO (09:21)
[2021-04-08] MEDS ORDERED: TIOT4MIS3 (09:21)
[2021-04-08] MEDS ORDERED: MULT-1085 PO (09:21)
[2021-04-08] MEDS ORDERED: APIX5TAB3 PO (09:21)
[2021-04-08] MEDS ORDERED: HYDR12.55 PO (09:21)
[2021-04-08] MEDS ORDERED: AMLO10TA13 PO (09:23)
[2021-04-08] MEDS ORDERED: midazolam 1 mg/ML 2ml injection ONE (10:36)
[2021-04-08] MEDS ORDERED: fentaNYL/PF 50MCG/1 ML 2ML syringe ONE (10:37)
[2021-04-08] MEDS ORDERED: HYDROcodone/acetaminophen 10/325mg tab PO ONE (11:40)
[2021-04-08] MEDS ORDERED: HYDROcodone/acetaminophen 5mg/325mg tablet PO PRN ×2 (11:50)
== END 2021-04-08 14:00 | disposition home or self-care (01) ==
LOC: SSTAY O 08:26
PROVIDERS: ATTEND Radiology Vascular & Interventional Radiology
DX: R91.8 Other nonspecific abnormal finding of lung field (principal)
CPT/HCPCS: 32408; 71045; 77012; J2250; J3010; 99152; 99153

== ENCOUNTER 2022-01-20 14:14 | Inpatient (IN) | payer MEDICARE ==
[~2022-01-20] VITALS: Ht 177.8 cm; Wt 109.0 kg
[~2022-01-20 14:14] MED LIST changes: -ALBU8.5H8 INH; +ALBU8HFA PO; -ASPI-1265 PO; +ATOR10TA70 PO; -BUDE180A INH; +CARB1TAB36 PO; -GLYC10.7 INH; +HYDR12.55 PO; -LINA5TAB4 PO; +MELA3TAB39 PO; +MULT-1085 PO; -OMEG1CAP2 PO; +TIOT4MIS3
[2022-01-20 15:21] LABS: BASOPHILS % (AUTO) 0.1 % (0-1); EOSINOPHILS % (AUTO) 0.1 % (0-6); HEMATOCRIT 40.3 % (42.0-52.0); HEMOGLOBIN 13.2 g/dl (14.0-17.9); LYMPHOCYTES # (AUTO) 0.3 X10'3 (1.1-4.8); LYMPHOCYTES % (AUTO) 1.7 % (21-51); MEAN CORPUSCULAR HEMOGLOBIN 28.7 PG (27.0-31.0); MEAN CORPUSCULAR HGB CONC 32.9 g/dL (33.0-36.5); MEAN CORPUSCULAR VOLUME 87.3 FL (78-98); MEAN PLATELET VOLUME 7.9 FL (7.4-10.4); MONOCYTES # (AUTO) 0.7 X10'3 (0-0.9); MONOCYTES % (AUTO) 4.4 % (2-12); NEUTROPHILS # (AUTO) 15.5 X10'3 (1.8-7.7); NEUTROPHILS % (AUTO) 93.7 % (42-75); PLATELET COUNT 126 X10'3 (140-440); RED BLOOD COUNT 4.61 X10'6 (4.70-6.10); RED CELL DISTRIBUTION WIDTH 13.4 % (11.5-14.5); WHITE BLOOD COUNT 16.6 X10'3 (4.5-11.0)
[2022-01-20 15:36] LABS: ALANINE AMINOTRANSFERASE 9 U/L (12-78); ALBUMIN/GLOBULIN RATIO 0.7 (1.1-1.5); ALKALINE PHOSPHATASE 97 IU/L (46-116); ANION GAP 14 (8-16); ASPARTATE AMINO TRANSFERASE 25 U/L (10-37); BILIRUBIN,TOTAL 1.9 MG/DL (0.1-1.0); BLOOD UREA NITROGEN 36 MG/DL (7-18); BUN/CREATININE RATIO 17.9 (5.4-32.0); CALCIUM 8.5 MG/DL (8.5-10.1); CHLORIDE 93 MMOL/L (99-107); CREATININE 2.01 MG/DL (0.60-1.10); POTASSIUM 3.9 MMOL/L (3.5-5.1); SODIUM 129 MMOL/L (135-145); TOTAL CARBON DIOXIDE 22.2 MMOL/L (24-32); TOTAL PROTEIN 7.2 G/DL (6.4-8.2); eGFR 33 ML/MIN
[2022-01-20 15:37] LABS: GLUCOSE 470 MG/DL (70-104)
[2022-01-20 15:40] LABS: NEUTROPHILS % (MANUAL) 82 % (42-75); PLATELET ESTIMATE DECREASED; TOTAL CELLS COUNTED 100
[2022-01-20] MEDS ORDERED: cefTRIAXone 1g/NS 100ml IVPB 100 ML IV ONE (16:00)
[2022-01-20] MEDS ORDERED: insulin regular, human 10 units/0.1 ml syringe IV ONE (16:00)
[2022-01-20] MEDS ORDERED: normal saline 1000ML IV soln IVB ONE (16:00)
[2022-01-20 16:03] LABS: CLARITY,URINE CLOUDY (Clear); COLOR,URINE YELLOW (Yellow); GLUCOSE, URINE >=1000 mg/dl (Neg); KETONES,URINE TRACE mg/dl (Neg); LEUKOCYTE ESTERASE ,URINE NEGATIVE (Neg); NITRITES, URINE NEGATIVE (Neg); OCCULT BLOOD,URINE SMALL (Neg); PROTEIN,URINE 100 mg/dl (Neg); UA COLLECTION TYPE NON-SPECIFIED
[2022-01-20 16:18] LABS: BACTERIA,URINE 2+ /HPF (Neg); MUCUS STRANDS FEW /LPF (Neg); RBC,URINE 0-2 /HPF (0-2); SQUAMOUS EPITHELIAL CELL,UR MODERATE /LPF (FEW)
[2022-01-20 16:19] LABS: AMORPHOUS URATES 2+
[2022-01-20] MEDS ORDERED: CARV3.123 PO (17:31)
[2022-01-20] MEDS ORDERED: magnesium hydroxide 30ml (MOM) UD suspension PO PRN (18:00)
[2022-01-20] MEDS ORDERED: magnesium Cl slow-release 64mg tablet PO PRN (18:00)
[2022-01-20] MEDS ORDERED: mag hydrox/Alum hydrox/simeth 30ml oral suspension PO PRN (18:00)
[2022-01-20] MEDS ORDERED: magnesium 2GM in 50ml NS 50 ML IV PRN (18:00)
[2022-01-20] MEDS ORDERED: potassium Cl 20 mEq SR tablet PO PRN ×2 (18:00)
[2022-01-20] MEDS ORDERED: morphine 2 MG/ML inj. syringe IV PRN (18:00)
[2022-01-20] MEDS ORDERED: vancomycin/NS 1 GM ADD-VANTAGE 250 ML IV SCH (18:00)
[2022-01-20] MEDS ORDERED: potassium CL 10mEq/100ml bag 100 ML IV PRN (18:00)
[2022-01-20] MEDS ORDERED: magnesium 4gm in 100ml NS 100 ML IV PRN (18:00)
[2022-01-20] MEDS ORDERED: acetaminophen 325mg tablet PO PRN (18:00)
[2022-01-20] MEDS ORDERED: ondansetron/PF 4mg/2ml inj IV PRN (18:00)
[2022-01-20 18:40] LABS: MAGNESIUM 1.6 MG/DL (1.5-2.4); POTASSIUM 3.4 MMOL/L (3.5-5.1)
[2022-01-20] MEDS: losartan 50mg tablet PO SCH (20:00)
[2022-01-20] MEDS: apixaban 5mg tablet PO SCH (20:38)
[2022-01-20] MEDS: carbidoba-levodopa 25-100mg tablet PO SCH (20:39)
[2022-01-20] MEDS: docusate sod 100mg capsule PO SCH (20:39)
[2022-01-20] MEDS: carVEDilol 3.125mg tablet PO SCH (20:39)
[2022-01-20] MEDS: normal saline 1000ml 1,000 ML IV SCH (20:39)
[2022-01-20] MEDS ORDERED: Melatonin 3mg tablet PO SCH (21:00)
[2022-01-20] MEDS: amLODIPine 5mg tablet PO SCH (21:18)
--- NOTE | 2022-01-20 21:45 | NUR ---
Upon entering the pt's rm, three nurses found collecting the pt and assisting him to comfort on his bed; pt reportedly found on the floor near the doorway of his room. The pt is a/o, nad, skin intact without injuries, vss. Report called to floor by Fei, one of the nurses who were assisting the pt in bed.
[2022-01-20] MEDS: K and/or MAG REPLACEMENT MC SCH (21:52)
[2022-01-20] MEDS ORDERED: dextrose 50%-water 50ml dispensing syringe IV PRN ×2 (21:55)
[2022-01-20] MEDS ORDERED: glucagon, human recombinant 1mg kit SUBCUT PRN (21:55)
[2022-01-20] MEDS ORDERED: MESSAGE TO PHARMACY PO ONE (21:55)
[2022-01-20] MEDS ORDERED: DEXTROSE 15 GM of carb/4 tabs (each vial/BOTTLE has 4 tablets) PO PRN ×2 (21:55)
--- NOTE | 2022-01-20 22:56 | NUR ---
received report from Fei HERNÁNDEZ in the ER. Pt arrived on the unit via gurney and was assisted by 2 RN's to pivot and turn to his bed. Pt belongings were in a pt bag and placed at bedside. VSS were stable although respirations were increased from the move. Pt was on 2L via N/C, Vanco running at 166mls/hr and normal saline running at 100 mls/hr. Left leg wound was weeping serous drainage so pictures were taken and ABD with kerlex was placed. Pt not currently in distress, will continue to monitor.
[2022-01-20 23:23] VITALS: BP 117/51
[2022-01-20] MEDS: insulin Lispro (HumaLOG) vial - multi-dose SQ SCH (23:54)
[2022-01-21] VITALS (19 sets, daily range): BP systolic 68–131; BP diastolic 25–59
[2022-01-21] MEDS: normal saline 1000ml 1,000 ML IV SCH ×2 (04:00→13:25)
[2022-01-21 06:26] LABS: BASOPHILS % (AUTO) 0.2 % (0-1); EOSINOPHILS % (AUTO) 0.1 % (0-6); HEMATOCRIT 34.4 % (42.0-52.0); HEMOGLOBIN 11.8 g/dl (14.0-17.9); LYMPHOCYTES # (AUTO) 0.2 X10'3 (1.1-4.8); LYMPHOCYTES % (AUTO) 1.6 % (21-51); MEAN CORPUSCULAR HEMOGLOBIN 29.3 PG (27.0-31.0); MEAN CORPUSCULAR HGB CONC 34.1 g/dL (33.0-36.5); MEAN CORPUSCULAR VOLUME 85.9 FL (78-98); MEAN PLATELET VOLUME 8.2 FL (7.4-10.4); MONOCYTES # (AUTO) 0.3 X10'3 (0-0.9); MONOCYTES % (AUTO) 2.5 % (2-12); NEUTROPHILS # (AUTO) 13.6 X10'3 (1.8-7.7); NEUTROPHILS % (AUTO) 95.6 % (42-75); PLATELET COUNT 128 X10'3 (140-440); RED BLOOD COUNT 4.01 X10'6 (4.70-6.10); RED CELL DISTRIBUTION WIDTH 13.1 % (11.5-14.5); WHITE BLOOD COUNT 14.2 X10'3 (4.5-11.0)
--- NOTE | 2022-01-21 06:28 | NUR ---
Problems reprioritized. Patient report given, questions answered & plan of care reviewed with Olimpia HERNÁNDEZ.
[2022-01-21 06:39] LABS: ALBUMIN 2.5 G/DL (3.4-5.0); ANION GAP 12 (8-16); BLOOD UREA NITROGEN 51 MG/DL (7-18); BUN/CREATININE RATIO 16.6 (5.4-32.0); CALCIUM 7.4 MG/DL (8.5-10.1); CHLORIDE 96 MMOL/L (99-107); CREATININE 3.07 MG/DL (0.60-1.10); GLUCOSE 397 MG/DL (70-104); MAGNESIUM 1.6 MG/DL (1.5-2.4); POTASSIUM 3.7 MMOL/L (3.5-5.1); SODIUM 130 MMOL/L (135-145); eGFR 20 ML/MIN
[2022-01-21 07:01] LABS: LARGE PLATELETS FEW; PLATELET ESTIMATE DECREASED; TOTAL CELLS COUNTED 100; TOXIC VACUOLATION FEW
[2022-01-21] MEDS: apixaban 5mg tablet PO SCH ×2 (07:43→20:20)
[2022-01-21] MEDS: docusate sod 100mg capsule PO SCH ×2 (07:43→20:00)
[2022-01-21] MEDS: losartan 50mg tablet PO SCH (07:45)
[2022-01-21] MEDS: carbidoba-levodopa 25-100mg tablet PO SCH ×2 (07:45→20:20)
[2022-01-21] MEDS: multivitamins, therapeutics tablet PO SCH (07:45)
[2022-01-21] MEDS: carVEDilol 3.125mg tablet PO SCH (07:45)
[2022-01-21] MEDS ORDERED: enoxaparin 40mg/0.4ml syringe SUBCUT SCH (08:00)
[2022-01-21] MEDS ORDERED: atorvastatin 10mg tablet PO SCH (08:00)
[2022-01-21] MEDS ORDERED: CefTRIAXone 2gm/D5W 50ml BAG 50 ML IV SCH (08:00)
[2022-01-21] MEDS ORDERED: CefTRIAXone 2gm/NS 100ml IVPB 100 ML IV SCH (08:00)
[2022-01-21] MEDS ORDERED: HYDROchlorothiazide 12.5mg capsule PO SCH (08:00)
[2022-01-21] MEDS: K and/or MAG REPLACEMENT MC SCH ×2 (08:06→20:00)
[2022-01-21] MEDS: insulin Lispro (HumaLOG) vial - multi-dose SQ SCH ×5 (08:57→22:21)
[2022-01-21] MEDS ORDERED: CARV6.252 PO (10:46)
[2022-01-21] MEDS ORDERED: ATOR20TA66 PO (10:46)
--- NOTE | 2022-01-21 10:46 | NUR ---
PAGER ID: [phone] MESSAGE: MarcMorris#[phone]- Rapid called on pt, , HR108, RR36, please advise. Cristy HERNÁNDEZ traveler ([facility] ) [phone]
--- NOTE | 2022-01-21 11:00 | NUR ---
Patient b/p runs low, all 3 b/p meds were held this morning, patient become hypotensive and lethargic around 1030am, rapid response was activated, MD order placed and activated, patient is now stable and more alert, will continue to monitor him closely
[2022-01-21 11:07] LABS: ABG BASE EXCESS -4.3 mmol/L (-2.0-2.0); ABG HCO3 20.9 mmol/L (22.0-26.0); ABG PCO2 (T) 38.9 mmHg (35.0-48.0); ABG PO2 (T) 76.5 mmHg (75.0-100.0); ALLEN'S TEST POSITIVE; FCOHb 0.5 % (0.0-3.9); FLOW 3 L/min; FMetHb 0.4 % (0.0-1.5); FO2Hb 94.1 % (94-97); TOTAL HEMOGLOBIN 12.7 G/dl (14.0-18.0)
--- NOTE | 2022-01-21 11:33 | NUR ---
Malnutrition/DM consult: Pt admitted w/ sepsis secondary to LLE cellulitis, and AKUA per EMR. Per MST pt reports 2-13lb wt loss, current wt not scaled though greater than previous admit wts. No reports of muscle or fat wasting. Noted w/ LLE 3+ and RLE 2+ edema though likely related to cellulitis and CHF. Currently on CCHO diet pending PO intake. At this time, pt does not meet minimum criteria for malnutrition. Noted pt w/ hx of DM, A1c currently pending. Per documentation pt s/p rapid response today. Will continue to monitor and make recommendations as appropriate. Recs: 1. Continue CCHO diet as tolerated 2. Monitor need for additional protein/ONS pending PO trends 3. Bowel care per rx 4. Scaled wts 5. DM ed by NADIA once pt appropriate if indicated by A1c Addendum: 01/21/22 at [address] Amended: Links added.
[2022-01-21 12:11] LABS: HEMOGLOBIN A1C 10.1 % (4.5-6.2)
--- NOTE | 2022-01-21 13:19 | NUR ---
Patient is still hypotensive but on close monitoring. Will continue to monitor
[2022-01-21] MEDS ORDERED: dexmedetomidin/NS 400mcg/100ml 100 ML IV PRN (14:35)
[2022-01-21] MEDS ORDERED: FENTANYL CITRATE/D5W/PF 100 ML IV PRN (14:35)
[2022-01-21] MEDS ORDERED: midazolam 100mg in NS 100ml 100 ML IV PRN (14:35)
[2022-01-21] MEDS ORDERED: NORepinephrine inj. 8 MG in dextrose 5%-water 242 ML IV SCH (14:40)
[2022-01-21] MEDS ORDERED: dexmedetomidine/D5W 100mL 100 ML IV PRN (14:41)
[2022-01-21] MEDS ORDERED: CISatracurium **Bolus** 2 mg/ml inj IV PRN (14:45)
[2022-01-21] MEDS ORDERED: CISatracurium besylate inj. 100 MG in normal saline 100ml IV soln 90 ML IV PRN (14:45)
[2022-01-21] MEDS: NORepinephrine 8mg/ 250ml NS 250 ML IV SCH ×2 (14:47→18:01)
[2022-01-21 14:52] LABS: ABG BASE EXCESS -7.8 mmol/L (-2.0-2.0); ABG HCO3 20.7 mmol/L (22.0-26.0); ABG PO2 (T) 214.7 mmHg (75.0-100.0); ALLEN'S TEST POSITIVE; FCOHb 0.6 % (0.0-3.9); FMetHb 0.5 % (0.0-1.5); FO2Hb 97.9 % (94-97); PEEP 5 cm H2O; RESPIRATORY RATE 16 b/min; TIDAL VOLUME 500 mL; TOTAL HEMOGLOBIN 12.9 G/dl (14.0-18.0)
--- NOTE | 2022-01-21 15:00 | NUR ---
Patient arrived on unit accompanied by medanders RN, RT and ICU charge nurse patient in rapid AFib once placed on monitor, Dr. Castellon instructed us to shock the patient, first shock 75 joules no resolution of rate or rhythm, second shock of 100 joules not resolution of rate or rhythm, third shock of 150 joules patient converted to SR with a rate in the 120's
[2022-01-21] MEDS: ipratropium/albuterol 3ml nebule NEB SCH ×3 (15:24→23:00)
[2022-01-21] MEDS ORDERED: sodium bicarbonate (8.4%) inj. 150 MEQ in dextrose 5%-water 1,000 ML IV SCH (15:50)
[2022-01-21] MEDS: mineral oil/petrolatum ophthal oint EACHEYE SCH ×2 (16:00→20:21)
[2022-01-21] MEDS: piperacillin/tazo 3.375gm/50ml 50 ML IV SCH (16:00)
[2022-01-21 16:10] LABS: ALANINE AMINOTRANSFERASE 7 U/L (12-78); ALBUMIN 2.3 G/DL (3.4-5.0); ALBUMIN/GLOBULIN RATIO 0.6 (1.1-1.5); ALKALINE PHOSPHATASE 70 IU/L (46-116); ANION GAP 15 (8-16); ASPARTATE AMINO TRANSFERASE 22 U/L (10-37); BILIRUBIN,TOTAL 0.9 MG/DL (0.1-1.0); BLOOD UREA NITROGEN 60 MG/DL (7-18); BUN/CREATININE RATIO 15.7 (5.4-32.0); CALCIUM 7.5 MG/DL (8.5-10.1); CHLORIDE 97 MMOL/L (99-107); CREATININE 3.83 MG/DL (0.60-1.10); GLUCOSE 405 MG/DL (70-104); SODIUM 133 MMOL/L (135-145); TOTAL CARBON DIOXIDE 21.5 MMOL/L (24-32); TOTAL PROTEIN 6.2 G/DL (6.4-8.2); eGFR 16 ML/MIN
[2022-01-21] MEDS ORDERED: NORepinephrine inj. 32 MG in normal saline 250ml IV soln 218 ML IV SCH (18:00)
[2022-01-21] MEDS ORDERED: dextrose 50%-water 50ml dispensing syringe IV PRN (18:00)
[2022-01-21] MEDS ORDERED: Insulin Reg/NS 100units/100mL 100 ML IV SCH (18:00)
[2022-01-21] MEDS: FENTANYL-0.9 % NACL/PF 100 ML IV PRN (18:02)
--- NOTE | 2022-01-21 18:19 | NUR ---
Problems reprioritized. Patient report given, questions answered & plan of care reviewed with Yamilex HERNÁNDEZ.
--- NOTE | 2022-01-21 18:25 | NUR ---
Patient in room ICU 2041. I have received report from Marta HERNÁNDEZ and had the opportunity to ask questions and assume patient care.
[2022-01-21] MEDS ORDERED: vancomycin inj. 750 MG in normal saline 250ml IV soln 250 ML IV SCH (20:00)
[2022-01-21] MEDS ORDERED: carvedilol 6.25mg tablet PO SCH (20:00)
[2022-01-21] MEDS: amLODIPine 5mg tablet PO SCH (20:20)
[2022-01-21] MEDS ORDERED: insulin glargine (Lantus) pen - multi-dose SQ SCH (21:00)
[2022-01-21 22:02] LABS: ALBUMIN 2.2 G/DL (3.4-5.0); ANION GAP 13 (8-16); BLOOD UREA NITROGEN 63 MG/DL (7-18); BUN/CREATININE RATIO 15.8 (5.4-32.0); CALCIUM 7.3 MG/DL (8.5-10.1); CHLORIDE 97 MMOL/L (99-107); CREATINE KINASE 893 U/L (39-308); CREATININE 3.99 MG/DL (0.60-1.10); GLUCOSE 372 MG/DL (70-104); MAGNESIUM 1.7 MG/DL (1.5-2.4); POTASSIUM 3.6 MMOL/L (3.5-5.1); SODIUM 133 MMOL/L (135-145); TOTAL CARBON DIOXIDE 22.6 MMOL/L (24-32); eGFR 15 ML/MIN
[2022-01-21 22:34] LABS: ABG HCO3 21.6 mmol/L (22.0-26.0); ABG OXYGEN SATURATION 96.1 % (94-97); ABG PCO2 (T) 50.9 mmHg (35.0-48.0); ABG PO2 (T) 97.1 mmHg (75.0-100.0); FCOHb 0.4 % (0.0-3.9); FMetHb 0.4 % (0.0-1.5); FO2Hb 95.3 % (94-97); PATIENT TEMPERATURE 39.2; PEEP 5 cm H2O; RESPIRATORY RATE 18 b/min; TIDAL VOLUME 500 mL
[2022-01-21] MEDS ORDERED: amiodarone 150mg/dext, iso-os 100 ML IV ONE (23:05)
[2022-01-21] MEDS ORDERED: ringers solution, lacted 1,000 ML IV SCH (23:05)
[2022-01-21] MEDS ORDERED: acetaminophen 1,000mg/100ml IV 100 ML IV PRN (23:10)
[2022-01-21] MEDS: amiodarone/D5 360MG/200ML BAG 200 ML IV SCH (23:24)
--- NOTE | 2022-01-21 23:25 | NUR ---
Dye Line Operator ICU Tele-Med d/t PT being in A-Fib with RVR with HR getting as high as low 200's. Orders received to start Amio gtt with loading dose, Add Neosynephrine and try to get Levophed off. Informed Dr Kaufman PT's Temp of 39.3, orders received to change PO Tylenol to IV. Will continue to monitor.
[2022-01-21] MEDS: phenylephrine inj 50 MG in normal saline 250ml IV soln 245 ML IV PRN (23:45)
[2022-01-22] VITALS (34 sets, daily range): BP systolic 91–113; BP diastolic 40–53
[2022-01-22] MEDS: normal saline 1000ml 1,000 ML IV SCH
[2022-01-22] MEDS: mineral oil/petrolatum ophthal oint EACHEYE SCH ×6 (00:10→20:57)
[2022-01-22] MEDS: piperacillin/tazo 3.375gm/50ml 50 ML IV SCH ×2 (00:17→08:18)
[2022-01-22] MEDS: FENTANYL-0.9 % NACL/PF 100 ML IV PRN ×5 (00:21→21:04)
[2022-01-22] MEDS ORDERED: acetaminophen 1,000mg/100ml IV 100 ML IV SCH (02:00)
[2022-01-22] MEDS: ipratropium/albuterol 3ml nebule NEB SCH ×6 (03:00→23:00)
--- NOTE | 2022-01-22 03:00 | NUR ---
PT has made zero urine thus far in shift and has been aware. Bladder scanned PT and it showed 340ml. Changed out Temp Amaral for Coude Cath. PT emptied 300ml into urometer and there was some unmeasurable as it spilled while connecting tubing. Esophageal temp probe placed in order to keep close eye on temperature. Will continue to monitor.
[2022-01-22 03:36] LABS: BASOPHILS % (AUTO) 0.2 % (0-1); EOSINOPHILS # (AUTO) 0.3 X10'3 (0-0.9); EOSINOPHILS % (AUTO) 1.5 % (0-6); HEMATOCRIT 36.7 % (42.0-52.0); HEMOGLOBIN 12.2 g/dl (14.0-17.9); LYMPHOCYTES # (AUTO) 0.6 X10'3 (1.1-4.8); LYMPHOCYTES % (AUTO) 2.6 % (21-51); MEAN CORPUSCULAR HEMOGLOBIN 28.5 PG (27.0-31.0); MEAN CORPUSCULAR HGB CONC 33.3 g/dL (33.0-36.5); MEAN CORPUSCULAR VOLUME 85.5 FL (78-98); MONOCYTES # (AUTO) 0.2 X10'3 (0-0.9); NEUTROPHILS % (AUTO) 94.7 % (42-75); PLATELET COUNT 189 X10'3 (140-440); RED BLOOD COUNT 4.29 X10'6 (4.70-6.10); RED CELL DISTRIBUTION WIDTH 13.7 % (11.5-14.5); WHITE BLOOD COUNT 21.1 X10'3 (4.5-11.0)
[2022-01-22 03:46] LABS: ABG BASE EXCESS -3.7 mmol/L (-2.0-2.0); ABG HCO3 22.9 mmol/L (22.0-26.0); ABG PCO2 (T) 48.1 mmHg (35.0-48.0); ABG PO2 (T) 86.1 mmHg (75.0-100.0); FCOHb 0.1 % (0.0-3.9); FMetHb 0.3 % (0.0-1.5); FO2Hb 95.6 % (94-97); PATIENT TEMPERATURE 37.3; PEEP 5 cm H2O; RESPIRATORY RATE 18 b/min; TIDAL VOLUME 500 mL; TOTAL HEMOGLOBIN 13.6 G/dl (14.0-18.0)
[2022-01-22 03:49] LABS: ALANINE AMINOTRANSFERASE 10 U/L (12-78); ALBUMIN/GLOBULIN RATIO 0.5 (1.1-1.5); ALKALINE PHOSPHATASE 82 IU/L (46-116); ANION GAP 16 (8-16); ASPARTATE AMINO TRANSFERASE 37 U/L (10-37); BILIRUBIN,TOTAL 0.6 MG/DL (0.1-1.0); BLOOD UREA NITROGEN 67 MG/DL (7-18); BUN/CREATININE RATIO 15.6 (5.4-32.0); CALCIUM 7.3 MG/DL (8.5-10.1); CHLORIDE 99 MMOL/L (99-107); GLUCOSE 153 MG/DL (70-104); MAGNESIUM 1.8 MG/DL (1.5-2.4); PHOSPHORUS 4.1 MG/DL (2.3-4.5); POTASSIUM 3.1 MMOL/L (3.5-5.1); SODIUM 136 MMOL/L (135-145); TOTAL CARBON DIOXIDE 21.3 MMOL/L (24-32); TOTAL PROTEIN 5.9 G/DL (6.4-8.2); eGFR 14 ML/MIN
[2022-01-22] MEDS: phenylephrine inj 50 MG in normal saline 250ml IV soln 245 ML IV PRN (04:09)
[2022-01-22 04:20] LABS: PLATELET ESTIMATE NORMAL; TOTAL CELLS COUNTED 100
[2022-01-22 04:22] LABS: LARGE PLATELETS FEW
[2022-01-22 04:26] LABS: BURR CELLS 1+; TOXIC VACUOLATION FEW
[2022-01-22 04:28] LABS: POLYCHROMASIA FEW
--- NOTE | 2022-01-22 04:45 | NUR ---
Morning rounds with Tele Med ICU MD- orders received to start Vasopressin and D/C Levo. D/C insulin gtt and start the Hyperglycemic Protocol. Potassium is 3.1 but wishes to defer to Nephrology. Will continue to monitor.
[2022-01-22] MEDS ORDERED: insulin Lispro (HumaLOG) vial - multi-dose SQ SCH (05:15)
[2022-01-22] MEDS ORDERED: DEXTROSE 15 GM of carb/4 tabs (each vial/BOTTLE has 4 tablets) PO PRN ×2 (05:15)
[2022-01-22] MEDS ORDERED: MESSAGE TO PHARMACY PO ONE (05:15)
[2022-01-22] MEDS ORDERED: glucagon, human recombinant 1mg kit SUBCUT PRN (05:15)
[2022-01-22] MEDS ORDERED: dextrose 50%-water 50ml dispensing syringe IV PRN ×2 (05:15)
[2022-01-22] MEDS: amiodarone/D5 360MG/200ML BAG 200 ML IV SCH ×4 (05:21→23:21)
[2022-01-22] MEDS: vasopressin inj. 40 UNIT in normal saline 50ml IV soln 38 ML IV SCH ×2 (05:57→12:47)
--- NOTE | 2022-01-22 06:30 | NUR ---
Problems reprioritized. Patient report given, questions answered & plan of care reviewed with Dallas HERNÁNDEZ.
[2022-01-22] MEDS ORDERED: insulin regular, human U-100 3ml vial - multi-dose SQ SCH (07:15)
[2022-01-22] MEDS ORDERED: vancomycin/NS 1 GM ADD-VANTAGE 250 ML IV PRN (07:40)
[2022-01-22] MEDS: K and/or MAG REPLACEMENT MC SCH ×2 (08:00→19:42)
[2022-01-22] MEDS ORDERED: atorvastatin 20mg tablet PO SCH (08:00)
[2022-01-22 08:05] LABS: VANCOMYCIN,RANDOM 14.4 UG/ML
[2022-01-22] MEDS: pantoprazole 40MG/NS 100ML BAG 100 ML IV SCH (08:18)
[2022-01-22] MEDS: NORepinephrine inj. 32 MG in normal saline 250ml IV soln 218 ML IV SCH ×3 (08:20→21:14)
[2022-01-22] MEDS: multivitamins, therapeutics tablet PO SCH (08:29)
[2022-01-22] MEDS: apixaban 5mg tablet PO SCH (08:29)
[2022-01-22] MEDS: hydrocortisone sod succ/PF 100mg/2ml inj. IV SCH ×3 (08:30→20:36)
[2022-01-22] MEDS ORDERED: docusate sodium 100mg/10ml UD cup PO SCH (08:30)
[2022-01-22] MEDS: carbidoba-levodopa 25-100mg tablet PO SCH (08:30)
[2022-01-22] MEDS: propofol 1000mg/100ml bottle 100 ML IV SCH (08:42)
[2022-01-22] MEDS ORDERED: potassium Cl 20 mEq/100mL bag IV ONE (08:55)
[2022-01-22] MEDS ORDERED: potassium Cl 20mEq/100mL bag 100 ML IV ONE (08:55)
[2022-01-22 09:00] LABS: TRIGLYCERIDES 107 MG/DL (20-135)
[2022-01-22] MEDS ORDERED: CefTRIAXone 2gm/NS 100ml IVPB 100 ML IV SCH (10:10)
[2022-01-22] MEDS ORDERED: cefepime 1GM/NS ADD-VANTAGE 100 ML IV SCH (10:25)
[2022-01-22] MEDS: clindamycin-Cleocin 900mg/D5W 50 ML IV SCH ×2 (10:53→16:00)
[2022-01-22] MEDS ORDERED: DEXTROSE 15 GM of carb/4 tabs (each vial/BOTTLE has 4 tablets) OGT PRN ×2 (11:26)
[2022-01-22] MEDS ORDERED: potassium Cl 20 mEq SR tablet OGT PRN ×2 (11:28→11:29)
[2022-01-22] MEDS ORDERED: acetaminophen 325mg/10.15ml oral unit dose solution OGT PRN (11:30)
--- NOTE | 2022-01-22 11:31 | NUR ---
TF consult: Pt s/p code blue 01/21, currently intubated and sedated with Propofol visualized at bedside to be running at 3.69 mL/hr providing 97 kcal/day. Pt with an OGT in place. TF recommendations below calculated to meet 100% of estimated energy and protein needs with current Propofol rate. No water flush at this time in view of renal status. Noted patient's A1c is 10.1%, pt would benefit from DM education once stable following extubation. LB 01/21. Will continue to follow. Recommendations: 1. Continuous TF using Vital HP with 80 mL/hr goal rate. To provide 1920 mL total volume/day, 1920 kcal, 168 g protein, and 1605 mL water 2. Monitor Propofol rate and need to adjust TF 3. No additional water flush at this time in view of renal status; monitor serum Na and renal function 4. Prealbumin q Wednesday/ 5. Daily scaled weights 6. Routine bowel care 7. DM education once stable following extubation; A1c 10.1% Addendum: 01/22/22 at [address] Amended: Links added.
[2022-01-22] MEDS: cefepime 1GM/NS ADD-VANTAGE 100 ML IV SCH (12:07)
[2022-01-22] MEDS ORDERED: vancomycin/NS 1 GM ADD-VANTAGE 250 ML IV ONE (13:00)
[2022-01-22] MEDS: insulin regular, human U-100 3ml vial - multi-dose SQ SCH ×2 (13:37→20:51)
[2022-01-22 15:33] LABS: PREALBUMIN 5.6 MG/DL (19-36)
--- NOTE | 2022-01-22 18:20 | NUR ---
Patient in room ICU 2041. I have received report from Dallas Morales RN with Mac RN and had the opportunity to ask questions and assume patient care.
--- NOTE | 2022-01-22 18:35 | NUR ---
Problems reprioritized. Patient report given, questions answered & plan of care reviewed with Mac RN.
[2022-01-22] MEDS ORDERED: mineral oil/petrolatum ophthal oint EACHEYE SCH (20:00)
[2022-01-22] MEDS: docusate sodium 100mg/10ml UD cup OGT SCH (20:36)
[2022-01-22] MEDS: carbidoba-levodopa 25-100mg tablet OGT SCH (20:37)
[2022-01-22] MEDS: apixaban 5mg tablet OGT SCH (20:37)
[2022-01-22] MEDS: amLODIPine 5mg tablet OGT SCH (20:38)
[2022-01-22] MEDS ORDERED: insulin glargine (Lantus) pen - multi-dose SQ SCH (21:00)
[2022-01-22 22:41] LABS: CKMB RELATIVE INDEX 0.3 RATIO (0-2.5); CREATINE KINASE 648 U/L (39-308)
[2022-01-23] VITALS (33 sets, daily range): BP systolic 85–123; BP diastolic 42–61
[2022-01-23] MEDS: hydrocortisone sod succ/PF 100mg/2ml inj. IV SCH ×4 (02:05→19:39)
[2022-01-23] MEDS: propofol 1000mg/100ml bottle 100 ML IV SCH ×2 (02:05→18:30)
[2022-01-23] MEDS: FENTANYL-0.9 % NACL/PF 100 ML IV PRN ×3 (02:07→21:14)
[2022-01-23] MEDS: insulin regular, human U-100 3ml vial - multi-dose SQ SCH (02:44)
[2022-01-23] MEDS: NORepinephrine inj. 32 MG in normal saline 250ml IV soln 218 ML IV SCH ×3 (02:55→18:31)
[2022-01-23] MEDS: ipratropium/albuterol 3ml nebule NEB SCH ×6 (03:00→23:00)
[2022-01-23] MEDS: VANCOMYCIN LEVEL IV SCH (03:00)
[2022-01-23 03:18] LABS: ABG BASE EXCESS -13.7 mmol/L (-2.0-2.0); ABG HCO3 13.3 mmol/L (22.0-26.0); ABG PO2 (T) 71.2 mmHg (75.0-100.0); FCOHb 0.1 % (0.0-3.9); FMetHb 0.4 % (0.0-1.5); FO2Hb 92.5 % (94-97); PATIENT TEMPERATURE 37.2; PEEP 5 cm H2O; RESPIRATORY RATE 20 b/min; TIDAL VOLUME 500 mL; TOTAL HEMOGLOBIN 12.5 G/dl (14.0-18.0)
[2022-01-23 03:18] LABS: BASOPHILS # (AUTO) 0.1 X10'3 (0-0.2); BASOPHILS % (AUTO) 0.3 % (0-1); EOSINOPHILS # (AUTO) 0.2 X10'3 (0-0.9); EOSINOPHILS % (AUTO) 0.7 % (0-6); HEMATOCRIT 35.5 % (42.0-52.0); HEMOGLOBIN 11.5 g/dl (14.0-17.9); LYMPHOCYTES # (AUTO) 0.3 X10'3 (1.1-4.8); LYMPHOCYTES % (AUTO) 1.1 % (21-51); MEAN CORPUSCULAR HEMOGLOBIN 28.3 PG (27.0-31.0); MEAN CORPUSCULAR HGB CONC 32.3 g/dL (33.0-36.5); MEAN CORPUSCULAR VOLUME 87.6 FL (78-98); MEAN PLATELET VOLUME 8.3 FL (7.4-10.4); MONOCYTES # (AUTO) 0.7 X10'3 (0-0.9); MONOCYTES % (AUTO) 2.6 % (2-12); NEUTROPHILS # (AUTO) 26.2 X10'3 (1.8-7.7); NEUTROPHILS % (AUTO) 95.3 % (42-75); PLATELET COUNT 200 X10'3 (140-440); RED BLOOD COUNT 4.05 X10'6 (4.70-6.10); RED CELL DISTRIBUTION WIDTH 14.5 % (11.5-14.5)
[2022-01-23 03:26] LABS: WHITE BLOOD COUNT 27.5 X10'3 (4.5-11.0)
[2022-01-23 03:42] LABS: ALANINE AMINOTRANSFERASE 11 U/L (12-78); ALBUMIN 1.6 G/DL (3.4-5.0); ALBUMIN/GLOBULIN RATIO 0.4 (1.1-1.5); ALKALINE PHOSPHATASE 87 IU/L (46-116); ANION GAP 22 (8-16); ASPARTATE AMINO TRANSFERASE 91 U/L (10-37); BILIRUBIN,TOTAL 0.9 MG/DL (0.1-1.0); BLOOD UREA NITROGEN 83 MG/DL (7-18); BUN/CREATININE RATIO 14.5 (5.4-32.0); CALCIUM 7.3 MG/DL (8.5-10.1); CHLORIDE 94 MMOL/L (99-107); CREATININE 5.74 MG/DL (0.60-1.10); GLUCOSE 388 MG/DL (70-104); MAGNESIUM 1.9 MG/DL (1.5-2.4); PHOSPHORUS 8.2 MG/DL (2.3-4.5); SODIUM 132 MMOL/L (135-145); TOTAL CARBON DIOXIDE 15.8 MMOL/L (24-32); TOTAL PROTEIN 5.7 G/DL (6.4-8.2); TRIGLYCERIDES 233 MG/DL (20-135); VANCOMYCIN,RANDOM 19.7 UG/ML; eGFR 10 ML/MIN
[2022-01-23] MEDS: mineral oil/petrolatum ophthal oint EACHEYE SCH ×7 (04:06→23:48)
[2022-01-23] MEDS ORDERED: sodium bicarbonate (8.4%) 1 mEq/ml syringe IV ONE (04:30)
[2022-01-23 04:42] LABS: PLATELET ESTIMATE NORMAL; TOTAL CELLS COUNTED 100
[2022-01-23 04:43] LABS: LARGE PLATELETS FEW
[2022-01-23 04:44] LABS: BURR CELLS 2+; POLYCHROMASIA FEW
[2022-01-23] MEDS: amiodarone/D5 360MG/200ML BAG 200 ML IV SCH ×4 (04:58→23:37)
[2022-01-23] MEDS: vasopressin inj. 40 UNIT in normal saline 50ml IV soln 38 ML IV SCH ×2 (05:57→21:14)
[2022-01-23] MEDS ORDERED: dextrose 50%-water 50ml dispensing syringe IV PRN (07:20)
[2022-01-23] MEDS: sodium bicarbonate (8.4%) inj. 150 MEQ in sodium chloride 0.45% 1,000 ML IV SCH ×3 (07:30→18:30)
[2022-01-23] MEDS: Insulin Reg/NS 100units/100mL 100 ML IV SCH ×3 (07:31→18:37)
[2022-01-23] MEDS: K and/or MAG REPLACEMENT MC SCH ×2 (08:00→19:40)
[2022-01-23] MEDS ORDERED: insulin glargine (Lantus) pen - multi-dose SQ SCH (08:00)
[2022-01-23] MEDS: PHENYLephrine 100 MG in NS 250ml IV soln IV SCH ×2 (08:18→19:17)
[2022-01-23] MEDS: clindamycin-Cleocin 900mg/D5W 50 ML IV SCH ×4 (08:21→23:48)
[2022-01-23] MEDS: pantoprazole 40MG/NS 100ML BAG 100 ML IV SCH (08:21)
[2022-01-23] MEDS: cefepime 1GM/NS ADD-VANTAGE 100 ML IV SCH (08:28)
[2022-01-23] MEDS: apixaban 5mg tablet OGT SCH ×2 (08:32→19:39)
[2022-01-23] MEDS: MULTIVIT-MIN/FERROUS GLUCONATE 9 MG/15 ML LIQUID OGT SCH (08:32)
[2022-01-23] MEDS: carbidoba-levodopa 25-100mg tablet OGT SCH ×2 (08:32→19:39)
[2022-01-23] MEDS: atorvastatin 20mg tablet OGT SCH (08:32)
[2022-01-23] MEDS: docusate sodium 100mg/10ml UD cup OGT SCH ×2 (08:33→19:39)
[2022-01-23 08:49] LABS: CKMB RELATIVE INDEX 0.2 RATIO (0-2.5)
[2022-01-23] MEDS ORDERED: Duosol 4K/3 Ca (w/calcium) 5,000 ML HE SCH (09:10)
[2022-01-23] MEDS ORDERED: calcium chloride inj. 1,000 MG in normal saline 100ml IV soln 100 ML IV PRN (09:10)
[2022-01-23] MEDS ORDERED: magnesium 4gm in 100ml NS 100 ML IV PRN (09:10)
[2022-01-23] MEDS ORDERED: sodium phosphate inj. 30 MMOL in normal saline 250ml IV soln 250 ML IV PRN (09:10)
[2022-01-23] MEDS ORDERED: potassium Cl 40MEQ/250ML bag 270 ML IV PRN (09:10)
[2022-01-23] MEDS: Duosol 4K/3 Ca (w/calcium) 5,000 ML HE SCH ×10 (11:09→22:53)
[2022-01-23 12:18] LABS: BASOPHILS # (AUTO) 0.2 X10'3 (0-0.2); BASOPHILS % (AUTO) 0.8 % (0-1); EOSINOPHILS # (AUTO) 0.1 X10'3 (0-0.9); EOSINOPHILS % (AUTO) 0.5 % (0-6); HEMATOCRIT 34.6 % (42.0-52.0); HEMOGLOBIN 11.4 g/dl (14.0-17.9); LYMPHOCYTES # (AUTO) 0.4 X10'3 (1.1-4.8); LYMPHOCYTES % (AUTO) 1.5 % (21-51); MEAN CORPUSCULAR HEMOGLOBIN 28.3 PG (27.0-31.0); MEAN CORPUSCULAR VOLUME 85.9 FL (78-98); MEAN PLATELET VOLUME 7.9 FL (7.4-10.4); MONOCYTES # (AUTO) 0.5 X10'3 (0-0.9); MONOCYTES % (AUTO) 1.8 % (2-12); NEUTROPHILS # (AUTO) 27.4 X10'3 (1.8-7.7); NEUTROPHILS % (AUTO) 95.4 % (42-75); PLATELET COUNT 203 X10'3 (140-440); RED BLOOD COUNT 4.03 X10'6 (4.70-6.10); RED CELL DISTRIBUTION WIDTH 14.2 % (11.5-14.5)
[2022-01-23 12:20] LABS: WHITE BLOOD COUNT 28.8 X10'3 (4.5-11.0)
[2022-01-23 12:30] LABS: ALBUMIN 1.5 G/DL (3.4-5.0); ANION GAP 16 (8-16); APTT 38 SECONDS (22-32); BLOOD UREA NITROGEN 82 MG/DL (7-18); BUN/CREATININE RATIO 15.3 (5.4-32.0); CALCIUM 6.9 MG/DL (8.5-10.1); CHLORIDE 99 MMOL/L (99-107); CREATININE 5.35 MG/DL (0.60-1.10); GLUCOSE 376 MG/DL (70-104); MAGNESIUM 1.9 MG/DL (1.5-2.4); PHOSPHORUS 6.6 MG/DL (2.3-4.5); POTASSIUM 3.9 MMOL/L (3.5-5.1); SODIUM 135 MMOL/L (135-145); TOTAL CARBON DIOXIDE 19.9 MMOL/L (24-32); eGFR 11 ML/MIN
[2022-01-23] MEDS: potassium Cl 20mEq/100mL bag 100 ML IV PRN ×4 (12:53→19:39)
--- NOTE | 2022-01-23 13:00 | NUR ---
WBC remains elevated. aware.
[2022-01-23] MEDS: insulin Lispro (HumaLOG) vial - multi-dose SQ PRN ×4 (13:07→16:15)
[2022-01-23 13:22] LABS: LYMPHOCYTES # (AUTO) 0.4 X10'3 (1.1-4.8); RED CELL DISTRIBUTION WIDTH 14.3 % (11.5-14.5)
[2022-01-23 13:23] LABS: ALBUMIN 1.6 G/DL (3.4-5.0); ANION GAP 14 (8-16); BLOOD UREA NITROGEN 81 MG/DL (7-18); BUN/CREATININE RATIO 15.9 (5.4-32.0); CHLORIDE 99 MMOL/L (99-107); CREATININE 5.11 MG/DL (0.60-1.10); GLUCOSE 337 MG/DL (70-104); MAGNESIUM 1.9 MG/DL (1.5-2.4); POTASSIUM 3.9 MMOL/L (3.5-5.1); SODIUM 135 MMOL/L (135-145); TOTAL CARBON DIOXIDE 21.8 MMOL/L (24-32); eGFR 11 ML/MIN
[2022-01-23 13:24] LABS: BASOPHILS # (AUTO) 0.2 X10'3 (0-0.2); BASOPHILS % (AUTO) 0.9 % (0-1); EOSINOPHILS % (AUTO) 0.1 % (0-6); HEMATOCRIT 34.8 % (42.0-52.0); HEMOGLOBIN 11.5 g/dl (14.0-17.9); LYMPHOCYTES % (AUTO) 1.5 % (21-51); MEAN CORPUSCULAR HEMOGLOBIN 28.3 PG (27.0-31.0); MEAN CORPUSCULAR VOLUME 85.6 FL (78-98); MONOCYTES # (AUTO) 0.4 X10'3 (0-0.9); MONOCYTES % (AUTO) 1.5 % (2-12); NEUTROPHILS # (AUTO) 27.4 X10'3 (1.8-7.7); PLATELET COUNT 194 X10'3 (140-440); RED BLOOD COUNT 4.06 X10'6 (4.70-6.10)
[2022-01-23 13:30] LABS: WHITE BLOOD COUNT 28.5 X10'3 (4.5-11.0)
[2022-01-23 14:31] LABS: BASOPHILS # (AUTO) 0.2 X10'3 (0-0.2); BASOPHILS % (AUTO) 0.6 % (0-1); EOSINOPHILS # (AUTO) 0.1 X10'3 (0-0.9); EOSINOPHILS % (AUTO) 0.3 % (0-6); HEMATOCRIT 33.9 % (42.0-52.0); HEMOGLOBIN 11.3 g/dl (14.0-17.9); LYMPHOCYTES # (AUTO) 0.4 X10'3 (1.1-4.8); LYMPHOCYTES % (AUTO) 1.6 % (21-51); MEAN CORPUSCULAR HEMOGLOBIN 28.8 PG (27.0-31.0); MEAN CORPUSCULAR HGB CONC 33.3 g/dL (33.0-36.5); MEAN CORPUSCULAR VOLUME 86.6 FL (78-98); MEAN PLATELET VOLUME 7.8 FL (7.4-10.4); MONOCYTES # (AUTO) 0.4 X10'3 (0-0.9); MONOCYTES % (AUTO) 1.4 % (2-12); NEUTROPHILS # (AUTO) 27.1 X10'3 (1.8-7.7); NEUTROPHILS % (AUTO) 96.1 % (42-75); PLATELET COUNT 190 X10'3 (140-440); RED BLOOD COUNT 3.91 X10'6 (4.70-6.10); RED CELL DISTRIBUTION WIDTH 14.2 % (11.5-14.5)
[2022-01-23 14:33] LABS: WHITE BLOOD COUNT 28.2 X10'3 (4.5-11.0)
[2022-01-23 14:38] LABS: ALBUMIN 1.6 G/DL (3.4-5.0); ANION GAP 10 (8-16); BLOOD UREA NITROGEN 78 MG/DL (7-18); BUN/CREATININE RATIO 16.1 (5.4-32.0); CALCIUM 7.2 MG/DL (8.5-10.1); CHLORIDE 101 MMOL/L (99-107); CREATININE 4.85 MG/DL (0.60-1.10); GLUCOSE 308 MG/DL (70-104); PHOSPHORUS 5.4 MG/DL (2.3-4.5); SODIUM 135 MMOL/L (135-145); TOTAL CARBON DIOXIDE 23.9 MMOL/L (24-32); eGFR 12 ML/MIN
--- NOTE | 2022-01-23 15:19 | NUR ---
F/u: Pt started on CVVH today. Propofol visualized at bedside to be running at 7.38 mL/hr providing 195 kcal/day. No adjustments to TF warranted at this time. Will continue to follow closely and make recommendations as appropriate. Recommendations: 1. Given Propofol at 7.38 mL/hr (195 kcal/day), continuous TF using Vital HP with 80 mL/hr goal rate. To provide 1920 mL total volume/day, 1920 kcal, 168 g protein, and 1605 mL water 2. Monitor Propofol rate and need to adjust TF 3. No additional water flush at this time in view of renal status; monitor serum Na 4. Prealbumin q Wednesday/ 5. Daily scaled weights 6. Routine bowel care 7. DM education once stable following extubation; A1c 10.1% Addendum: 01/23/22 at [address] Amended: Links added.
[2022-01-23 15:27] LABS: BASOPHILS # (AUTO) 0.1 X10'3 (0-0.2); BASOPHILS % (AUTO) 0.5 % (0-1); EOSINOPHILS # (AUTO) 0.1 X10'3 (0-0.9); EOSINOPHILS % (AUTO) 0.4 % (0-6); HEMATOCRIT 33.7 % (42.0-52.0); HEMOGLOBIN 11.3 g/dl (14.0-17.9); LYMPHOCYTES # (AUTO) 0.4 X10'3 (1.1-4.8); LYMPHOCYTES % (AUTO) 1.5 % (21-51); MEAN CORPUSCULAR HEMOGLOBIN 28.8 PG (27.0-31.0); MEAN CORPUSCULAR HGB CONC 33.5 g/dL (33.0-36.5); MEAN CORPUSCULAR VOLUME 86.1 FL (78-98); MEAN PLATELET VOLUME 7.8 FL (7.4-10.4); MONOCYTES # (AUTO) 0.4 X10'3 (0-0.9); MONOCYTES % (AUTO) 1.3 % (2-12); NEUTROPHILS # (AUTO) 26.8 X10'3 (1.8-7.7); NEUTROPHILS % (AUTO) 96.3 % (42-75); PLATELET COUNT 189 X10'3 (140-440); RED BLOOD COUNT 3.92 X10'6 (4.70-6.10); RED CELL DISTRIBUTION WIDTH 14.3 % (11.5-14.5)
[2022-01-23 15:28] LABS: WHITE BLOOD COUNT 27.8 X10'3 (4.5-11.0)
[2022-01-23 15:50] LABS: ALBUMIN 1.5 G/DL (3.4-5.0); ANION GAP 16 (8-16); BLOOD UREA NITROGEN 72 MG/DL (7-18); BUN/CREATININE RATIO 15.6 (5.4-32.0); CALCIUM 8.1 MG/DL (8.5-10.1); CHLORIDE 100 MMOL/L (99-107); CREATININE 4.63 MG/DL (0.60-1.10); GLUCOSE 279 MG/DL (70-104); MAGNESIUM 1.9 MG/DL (1.5-2.4); PHOSPHORUS 4.7 MG/DL (2.3-4.5); POTASSIUM 3.7 MMOL/L (3.5-5.1); SODIUM 138 MMOL/L (135-145); TOTAL CARBON DIOXIDE 21.6 MMOL/L (24-32); eGFR 13 ML/MIN
[2022-01-23] MEDS ORDERED: ondansetron 4mg/5ml UD cup OGT PRN (16:32)
--- NOTE | 2022-01-23 18:19 | NUR ---
Problems reprioritized. Patient report given, questions answered & plan of care reviewed with Genie HERNÁNDEZ.
[2022-01-23] MEDS: amLODIPine 5mg tablet OGT SCH (19:40)
[2022-01-23 21:31] LABS: BASOPHILS # (AUTO) 0.2 X10'3 (0-0.2); BASOPHILS % (AUTO) 0.7 % (0-1); EOSINOPHILS % (AUTO) 0.1 % (0-6); HEMATOCRIT 34.5 % (42.0-52.0); HEMOGLOBIN 11.5 g/dl (14.0-17.9); LYMPHOCYTES # (AUTO) 0.4 X10'3 (1.1-4.8); LYMPHOCYTES % (AUTO) 1.4 % (21-51); MEAN CORPUSCULAR HEMOGLOBIN 28.7 PG (27.0-31.0); MEAN CORPUSCULAR HGB CONC 33.2 g/dL (33.0-36.5); MEAN CORPUSCULAR VOLUME 86.3 FL (78-98); MEAN PLATELET VOLUME 7.6 FL (7.4-10.4); MONOCYTES # (AUTO) 0.6 X10'3 (0-0.9); MONOCYTES % (AUTO) 1.9 % (2-12); NEUTROPHILS # (AUTO) 29.2 X10'3 (1.8-7.7); NEUTROPHILS % (AUTO) 95.9 % (42-75); PLATELET COUNT 193 X10'3 (140-440); RED CELL DISTRIBUTION WIDTH 14.5 % (11.5-14.5)
[2022-01-23 21:35] LABS: ALBUMIN 1.6 G/DL (3.4-5.0); ANION GAP 14 (8-16); BLOOD UREA NITROGEN 56 MG/DL (7-18); BUN/CREATININE RATIO 15.8 (5.4-32.0); CALCIUM 8.5 MG/DL (8.5-10.1); CHLORIDE 102 MMOL/L (99-107); CREATININE 3.55 MG/DL (0.60-1.10); GLUCOSE 121 MG/DL (70-104); PHOSPHORUS 3.1 MG/DL (2.3-4.5); POTASSIUM 3.9 MMOL/L (3.5-5.1); SODIUM 140 MMOL/L (135-145); TOTAL CARBON DIOXIDE 24.4 MMOL/L (24-32); eGFR 17 ML/MIN
[2022-01-23 21:42] LABS: MAGNESIUM 1.8 MG/DL (1.5-2.4)
[2022-01-23 21:43] LABS: WHITE BLOOD COUNT 30.4 X10'3 (4.5-11.0)
[2022-01-23 22:13] LABS: PLATELET ESTIMATE NORMAL; TOTAL CELLS COUNTED 100
[2022-01-23 22:14] LABS: ANISOCYTOSIS 1+
[2022-01-24] VITALS (28 sets, daily range): BP systolic 93–128; BP diastolic 48–69
[2022-01-24] MEDS: Duosol 4K/3 Ca (w/calcium) 5,000 ML HE SCH ×12 (02:08→23:46)
[2022-01-24] MEDS: Insulin Reg/NS 100units/100mL 100 ML IV SCH ×2 (02:10→14:42)
[2022-01-24] MEDS: vasopressin inj. 40 UNIT in normal saline 50ml IV soln 38 ML IV SCH ×2 (02:11→18:33)
[2022-01-24] MEDS: hydrocortisone sod succ/PF 100mg/2ml inj. IV SCH ×4 (02:12→19:48)
[2022-01-24] MEDS: ipratropium/albuterol 3ml nebule NEB SCH ×6 (03:32→23:33)
[2022-01-24 03:38] LABS: BASOPHILS # (AUTO) 0.2 X10'3 (0-0.2); BASOPHILS % (AUTO) 0.6 % (0-1); EOSINOPHILS % (AUTO) 0.1 % (0-6); HEMOGLOBIN 11.4 g/dl (14.0-17.9); LYMPHOCYTES # (AUTO) 0.4 X10'3 (1.1-4.8); LYMPHOCYTES % (AUTO) 1.6 % (21-51); MEAN CORPUSCULAR HEMOGLOBIN 28.6 PG (27.0-31.0); MEAN CORPUSCULAR HGB CONC 33.6 g/dL (33.0-36.5); MEAN CORPUSCULAR VOLUME 85.2 FL (78-98); MONOCYTES # (AUTO) 0.7 X10'3 (0-0.9); MONOCYTES % (AUTO) 2.4 % (2-12); NEUTROPHILS # (AUTO) 27.4 X10'3 (1.8-7.7); NEUTROPHILS % (AUTO) 95.3 % (42-75); PLATELET COUNT 188 X10'3 (140-440); RED BLOOD COUNT 3.99 X10'6 (4.70-6.10); RED CELL DISTRIBUTION WIDTH 14.2 % (11.5-14.5)
[2022-01-24] MEDS: amiodarone/D5 360MG/200ML BAG 200 ML IV SCH ×4 (03:39→23:53)
[2022-01-24] MEDS: FENTANYL-0.9 % NACL/PF 100 ML IV PRN ×4 (03:39→22:28)
[2022-01-24] MEDS: VANCOMYCIN LEVEL IV SCH (03:40)
[2022-01-24 03:46] LABS: WHITE BLOOD COUNT 28.8 X10'3 (4.5-11.0)
[2022-01-24 03:53] LABS: ALANINE AMINOTRANSFERASE 19 U/L (12-78); ALBUMIN 1.5 G/DL (3.4-5.0); ALBUMIN/GLOBULIN RATIO 0.3 (1.1-1.5); ALKALINE PHOSPHATASE 108 IU/L (46-116); ANION GAP 13 (8-16); ASPARTATE AMINO TRANSFERASE 69 U/L (10-37); BILIRUBIN,DIRECT 0.4 MG/DL (0-0.3); BILIRUBIN,TOTAL 0.6 MG/DL (0.1-1.0); BLOOD UREA NITROGEN 47 MG/DL (7-18); BUN/CREATININE RATIO 15.8 (5.4-32.0); CALCIUM 8.4 MG/DL (8.5-10.1); CHLORIDE 102 MMOL/L (99-107); CREATININE 2.97 MG/DL (0.60-1.10); GLUCOSE 165 MG/DL (70-104); MAGNESIUM 1.8 MG/DL (1.5-2.4); PHOSPHORUS 2.6 MG/DL (2.3-4.5); POTASSIUM 4.2 MMOL/L (3.5-5.1); SODIUM 139 MMOL/L (135-145); TOTAL PROTEIN 6.2 G/DL (6.4-8.2); VANCOMYCIN,RANDOM 10.7 UG/ML; eGFR 21 ML/MIN
[2022-01-24] MEDS: mineral oil/petrolatum ophthal oint EACHEYE SCH ×6 (04:09→23:46)
[2022-01-24] MEDS: PHENYLephrine 100 MG in NS 250ml IV soln IV SCH ×5 (04:11→23:49)
[2022-01-24 04:12] LABS: ABG BASE EXCESS -0.7 mmol/L (-2.0-2.0); ABG HCO3 24.8 mmol/L (22.0-26.0); ABG OXYGEN SATURATION 93.5 % (94-97); ABG PCO2 (T) 43.2 mmHg (35.0-48.0); ABG PO2 (T) 65.1 mmHg (75.0-100.0); FCOHb 0.3 % (0.0-3.9); FMetHb 0.2 % (0.0-1.5); PATIENT TEMPERATURE 36.5; PEEP 5 cm H2O; RESPIRATORY RATE 20 b/min; TIDAL VOLUME 500 mL; TOTAL HEMOGLOBIN 12.4 G/dl (14.0-18.0)
[2022-01-24] MEDS ORDERED: vancomycin/NS 1 GM ADD-VANTAGE 250 ML IV ONE (07:15)
[2022-01-24] MEDS: K and/or MAG REPLACEMENT MC SCH ×2 (07:16→18:53)
[2022-01-24] MEDS: atorvastatin 20mg tablet OGT SCH (07:26)
[2022-01-24] MEDS: apixaban 5mg tablet OGT SCH ×2 (07:26→19:48)
[2022-01-24] MEDS: MULTIVIT-MIN/FERROUS GLUCONATE 9 MG/15 ML LIQUID OGT SCH (07:26)
[2022-01-24] MEDS: carbidoba-levodopa 25-100mg tablet OGT SCH ×2 (07:26→19:48)
[2022-01-24] MEDS: docusate sodium 100mg/10ml UD cup OGT SCH ×2 (07:26→19:49)
[2022-01-24] MEDS: cefepime 1GM/NS ADD-VANTAGE 100 ML IV SCH (07:27)
[2022-01-24] MEDS: clindamycin-Cleocin 900mg/D5W 50 ML IV SCH ×3 (07:27→23:46)
[2022-01-24] MEDS: pantoprazole 40MG/NS 100ML BAG 100 ML IV SCH (07:27)
[2022-01-24] MEDS ORDERED: cefepime 1GM/NS ADD-VANTAGE 100 ML IV ONE (09:20)
[2022-01-24 09:23] LABS: BASOPHILS # (AUTO) 0.1 X10'3 (0-0.2); BASOPHILS % (AUTO) 0.4 % (0-1); EOSINOPHILS % (AUTO) 0.1 % (0-6); HEMATOCRIT 33.5 % (42.0-52.0); LYMPHOCYTES # (AUTO) 0.5 X10'3 (1.1-4.8); LYMPHOCYTES % (AUTO) 1.8 % (21-51); MEAN CORPUSCULAR HEMOGLOBIN 28.2 PG (27.0-31.0); MEAN CORPUSCULAR VOLUME 85.7 FL (78-98); MONOCYTES # (AUTO) 0.7 X10'3 (0-0.9); MONOCYTES % (AUTO) 2.4 % (2-12); NEUTROPHILS # (AUTO) 27.7 X10'3 (1.8-7.7); NEUTROPHILS % (AUTO) 95.3 % (42-75); PLATELET COUNT 201 X10'3 (140-440); RED BLOOD COUNT 3.91 X10'6 (4.70-6.10); RED CELL DISTRIBUTION WIDTH 14.7 % (11.5-14.5)
[2022-01-24 09:33] LABS: ALBUMIN 1.5 G/DL (3.4-5.0); ANION GAP 13 (8-16); BLOOD UREA NITROGEN 40 MG/DL (7-18); BUN/CREATININE RATIO 15.7 (5.4-32.0); CALCIUM 8.2 MG/DL (8.5-10.1); CHLORIDE 102 MMOL/L (99-107); CREATININE 2.54 MG/DL (0.60-1.10); GLUCOSE 130 MG/DL (70-104); MAGNESIUM 1.9 MG/DL (1.5-2.4); PHOSPHORUS 2.3 MG/DL (2.3-4.5); SODIUM 140 MMOL/L (135-145); TOTAL CARBON DIOXIDE 25.2 MMOL/L (24-32); eGFR 25 ML/MIN
[2022-01-24 09:50] LABS: MICROCYTOSIS 1+; PLATELET ESTIMATE NORMAL; TOTAL CELLS COUNTED 100
--- NOTE | 2022-01-24 13:00 | NUR ---
Patient continues to ooze from right groin mikel site; surgicel applied. Will continue to monitor.
[2022-01-24 15:15] LABS: BASOPHILS # (AUTO) 0.2 X10'3 (0-0.2); BASOPHILS % (AUTO) 0.6 % (0-1); EOSINOPHILS % (AUTO) 0.1 % (0-6); HEMATOCRIT 32.5 % (42.0-52.0); HEMOGLOBIN 10.9 g/dl (14.0-17.9); LYMPHOCYTES # (AUTO) 0.6 X10'3 (1.1-4.8); LYMPHOCYTES % (AUTO) 1.9 % (21-51); MEAN CORPUSCULAR HEMOGLOBIN 28.8 PG (27.0-31.0); MEAN CORPUSCULAR HGB CONC 33.5 g/dL (33.0-36.5); MEAN CORPUSCULAR VOLUME 85.9 FL (78-98); MONOCYTES # (AUTO) 0.9 X10'3 (0-0.9); MONOCYTES % (AUTO) 2.8 % (2-12); NEUTROPHILS % (AUTO) 94.6 % (42-75); PLATELET COUNT 204 X10'3 (140-440); RED BLOOD COUNT 3.79 X10'6 (4.70-6.10); RED CELL DISTRIBUTION WIDTH 14.5 % (11.5-14.5)
[2022-01-24 15:21] LABS: WHITE BLOOD COUNT 30.6 X10'3 (4.5-11.0)
[2022-01-24 15:27] LABS: ALBUMIN 1.5 G/DL (3.4-5.0); ANION GAP 7 (8-16); BLOOD UREA NITROGEN 36 MG/DL (7-18); BUN/CREATININE RATIO 16.5 (5.4-32.0); CALCIUM 8.3 MG/DL (8.5-10.1); CHLORIDE 105 MMOL/L (99-107); CREATININE 2.18 MG/DL (0.60-1.10); GLUCOSE 143 MG/DL (70-104); MAGNESIUM 1.8 MG/DL (1.5-2.4); PHOSPHORUS 2.3 MG/DL (2.3-4.5); POTASSIUM 4.2 MMOL/L (3.5-5.1); SODIUM 138 MMOL/L (135-145); TOTAL CARBON DIOXIDE 26.1 MMOL/L (24-32); eGFR 30 ML/MIN
[2022-01-24] MEDS: propofol 1000mg/100ml bottle 100 ML IV SCH (15:36)
--- NOTE | 2022-01-24 17:07 | NUR ---
MD rounding on patient and aware of elevated gastric residuals of 525ml. No new orders. Will continue to follow gastric residual protocol. MD also aware of continued elevation of WBC. No new orders at this time.
--- NOTE | 2022-01-24 18:15 | NUR ---
Problems reprioritized. Patient report given, questions answered & plan of care reviewed with Mac RN.
[2022-01-24] MEDS: cefepime 2g/NS 100ml ADVANTAGE 100 ML IV SCH (19:44)
[2022-01-24] MEDS: amLODIPine 5mg tablet OGT SCH (19:48)
[2022-01-24 21:59] LABS: BASOPHILS % (AUTO) 0.1 % (0-1); EOSINOPHILS % (AUTO) 0.1 % (0-6); HEMATOCRIT 32.6 % (42.0-52.0); LYMPHOCYTES # (AUTO) 0.8 X10'3 (1.1-4.8); LYMPHOCYTES % (AUTO) 2.6 % (21-51); MEAN CORPUSCULAR HEMOGLOBIN 28.8 PG (27.0-31.0); MEAN CORPUSCULAR HGB CONC 33.6 g/dL (33.0-36.5); MEAN CORPUSCULAR VOLUME 85.5 FL (78-98); MEAN PLATELET VOLUME 8.3 FL (7.4-10.4); MONOCYTES # (AUTO) 0.7 X10'3 (0-0.9); MONOCYTES % (AUTO) 2.6 % (2-12); NEUTROPHILS # (AUTO) 27.7 X10'3 (1.8-7.7); NEUTROPHILS % (AUTO) 94.6 % (42-75); PLATELET COUNT 213 X10'3 (140-440); RED BLOOD COUNT 3.81 X10'6 (4.70-6.10); RED CELL DISTRIBUTION WIDTH 14.6 % (11.5-14.5)
[2022-01-24 22:05] LABS: WHITE BLOOD COUNT 29.3 X10'3 (4.5-11.0)
[2022-01-24 22:07] LABS: ALBUMIN 1.5 G/DL (3.4-5.0); ANION GAP 14 (8-16); BLOOD UREA NITROGEN 32 MG/DL (7-18); BUN/CREATININE RATIO 15.9 (5.4-32.0); CALCIUM 8.7 MG/DL (8.5-10.1); CHLORIDE 103 MMOL/L (99-107); CREATININE 2.01 MG/DL (0.60-1.10); GLUCOSE 161 MG/DL (70-104); MAGNESIUM 1.8 MG/DL (1.5-2.4); PHOSPHORUS 2.4 MG/DL (2.3-4.5); POTASSIUM 4.4 MMOL/L (3.5-5.1); SODIUM 140 MMOL/L (135-145); TOTAL CARBON DIOXIDE 22.9 MMOL/L (24-32); eGFR 33 ML/MIN
[2022-01-25] VITALS (29 sets, daily range): BP systolic 84–174; BP diastolic 45–74
[2022-01-25] MEDS: hydrocortisone sod succ/PF 100mg/2ml inj. IV SCH ×4 (02:39→19:44)
[2022-01-25] MEDS: VANCOMYCIN LEVEL IV SCH (02:39)
[2022-01-25] MEDS: Duosol 4K/3 Ca (w/calcium) 5,000 ML HE SCH ×15 (02:39→23:47)
[2022-01-25] MEDS: vasopressin inj. 40 UNIT in normal saline 50ml IV soln 38 ML IV SCH (02:44)
[2022-01-25 03:06] LABS: BASOPHILS # (AUTO) 0.1 X10'3 (0-0.2); BASOPHILS % (AUTO) 0.2 % (0-1); EOSINOPHILS % (AUTO) 0.1 % (0-6); HEMATOCRIT 32.7 % (42.0-52.0); HEMOGLOBIN 10.8 g/dl (14.0-17.9); LYMPHOCYTES # (AUTO) 0.8 X10'3 (1.1-4.8); LYMPHOCYTES % (AUTO) 2.7 % (21-51); MEAN CORPUSCULAR HEMOGLOBIN 28.1 PG (27.0-31.0); MEAN CORPUSCULAR VOLUME 85.1 FL (78-98); MEAN PLATELET VOLUME 8.6 FL (7.4-10.4); MONOCYTES # (AUTO) 1.1 X10'3 (0-0.9); MONOCYTES % (AUTO) 3.7 % (2-12); NEUTROPHILS # (AUTO) 26.7 X10'3 (1.8-7.7); NEUTROPHILS % (AUTO) 93.3 % (42-75); PLATELET COUNT 228 X10'3 (140-440); RED BLOOD COUNT 3.84 X10'6 (4.70-6.10); RED CELL DISTRIBUTION WIDTH 14.7 % (11.5-14.5)
[2022-01-25 03:11] LABS: WHITE BLOOD COUNT 28.6 X10'3 (4.5-11.0)
[2022-01-25 03:17] LABS: ALANINE AMINOTRANSFERASE 22 U/L (12-78); ALBUMIN 1.5 G/DL (3.4-5.0); ALBUMIN/GLOBULIN RATIO 0.3 (1.1-1.5); ALKALINE PHOSPHATASE 106 IU/L (46-116); ANION GAP 15 (8-16); ASPARTATE AMINO TRANSFERASE 45 U/L (10-37); BILIRUBIN,TOTAL 0.6 MG/DL (0.1-1.0); BLOOD UREA NITROGEN 30 MG/DL (7-18); BUN/CREATININE RATIO 16.8 (5.4-32.0); CALCIUM 8.7 MG/DL (8.5-10.1); CHLORIDE 103 MMOL/L (99-107); CREATININE 1.79 MG/DL (0.60-1.10); GLUCOSE 119 MG/DL (70-104); POTASSIUM 4.1 MMOL/L (3.5-5.1); SODIUM 141 MMOL/L (135-145); TOTAL CARBON DIOXIDE 23.4 MMOL/L (24-32); TOTAL PROTEIN 6.2 G/DL (6.4-8.2); eGFR 38 ML/MIN
[2022-01-25 03:18] LABS: BILIRUBIN,DIRECT 0.3 MG/DL (0-0.3); PHOSPHORUS 2.1 MG/DL (2.3-4.5); VANCOMYCIN,RANDOM 10.8 UG/ML
[2022-01-25] MEDS: ipratropium/albuterol 3ml nebule NEB SCH ×6 (03:23→23:28)
[2022-01-25 03:31] LABS: MAGNESIUM 1.8 MG/DL (1.5-2.4)
[2022-01-25 04:02] LABS: ABG HCO3 26.2 mmol/L (22.0-26.0); ABG OXYGEN SATURATION 96.5 % (94-97); ABG PCO2 (T) 30.9 mmHg (35.0-48.0); ABG PO2 (T) 76.1 mmHg (75.0-100.0); FMetHb 0.2 % (0.0-1.5); FO2Hb 96.3 % (94-97); PATIENT TEMPERATURE 36.3; PEEP 5 cm H2O; RESPIRATORY RATE 20 b/min; TIDAL VOLUME 500 mL; TOTAL HEMOGLOBIN 12.1 G/dl (14.0-18.0)
[2022-01-25] MEDS: mineral oil/petrolatum ophthal oint EACHEYE SCH ×4 (04:26→23:47)
[2022-01-25 04:27] LABS: ANISOCYTOSIS 1+; PLATELET ESTIMATE NORMAL; POLYCHROMASIA FEW; TOTAL CELLS COUNTED 100
[2022-01-25 04:28] LABS: BURR CELLS FEW
--- NOTE | 2022-01-25 05:00 | NUR ---
CVVH down. conduit worker dialysis notified
[2022-01-25] MEDS ORDERED: polyethylene glycol 3350 17gm powd pack PO ONE (05:07)
--- NOTE | 2022-01-25 05:10 | NUR ---
Pt has had gastric residuals between 350 and 450 ml throughout shift. Did have large liquid bowel movement. Left lower leg dressing changed.
[2022-01-25] MEDS: amiodarone/D5 360MG/200ML BAG 200 ML IV SCH ×4 (05:58→23:47)
[2022-01-25] MEDS: Insulin Reg/NS 100units/100mL 100 ML IV SCH ×2 (06:45→23:00)
[2022-01-25] MEDS: PHENYLephrine 100 MG in NS 250ml IV soln IV SCH ×2 (06:49→13:05)
[2022-01-25] MEDS ORDERED: vancomycin/NS 1 GM ADD-VANTAGE 250 ML IV ONE (07:00)
--- NOTE | 2022-01-25 07:13 | NUR ---
cvvh back up at 0700.
[2022-01-25] MEDS: K and/or MAG REPLACEMENT MC SCH ×2 (07:45→19:46)
[2022-01-25] MEDS: docusate sodium 100mg/10ml UD cup OGT SCH ×2 (07:49→19:43)
[2022-01-25] MEDS: carbidoba-levodopa 25-100mg tablet OGT SCH ×2 (07:49→19:43)
[2022-01-25] MEDS: atorvastatin 20mg tablet OGT SCH (07:49)
[2022-01-25] MEDS: apixaban 5mg tablet OGT SCH ×2 (07:49→19:43)
--- NOTE | 2022-01-25 07:57 | NUR ---
Dr. Mijares updated on plan of care. Notified of: high gastric residuals movement of left arm current drips and rates current VS replacement of phos
[2022-01-25] MEDS: MULTIVIT-MIN/FERROUS GLUCONATE 9 MG/15 ML LIQUID OGT SCH (07:59)
[2022-01-25] MEDS: cefepime 2g/NS 100ml ADVANTAGE 100 ML IV SCH ×2 (08:28→19:44)
[2022-01-25] MEDS: FENTANYL-0.9 % NACL/PF 100 ML IV PRN ×3 (08:39→20:28)
[2022-01-25 08:51] LABS: BASOPHILS # (AUTO) 0.1 X10'3 (0-0.2); BASOPHILS % (AUTO) 0.3 % (0-1); EOSINOPHILS % (AUTO) 0.1 % (0-6); HEMATOCRIT 32.3 % (42.0-52.0); HEMOGLOBIN 10.7 g/dl (14.0-17.9); LYMPHOCYTES # (AUTO) 0.8 X10'3 (1.1-4.8); LYMPHOCYTES % (AUTO) 2.8 % (21-51); MEAN CORPUSCULAR HEMOGLOBIN 28.5 PG (27.0-31.0); MEAN CORPUSCULAR HGB CONC 33.1 g/dL (33.0-36.5); MEAN CORPUSCULAR VOLUME 85.9 FL (78-98); MEAN PLATELET VOLUME 8.1 FL (7.4-10.4); MONOCYTES % (AUTO) 3.3 % (2-12); NEUTROPHILS # (AUTO) 27.5 X10'3 (1.8-7.7); NEUTROPHILS % (AUTO) 93.5 % (42-75); PLATELET COUNT 218 X10'3 (140-440); RED BLOOD COUNT 3.76 X10'6 (4.70-6.10); RED CELL DISTRIBUTION WIDTH 14.8 % (11.5-14.5)
[2022-01-25] MEDS: pantoprazole 40MG/NS 100ML BAG 100 ML IV SCH (08:51)
[2022-01-25 08:53] LABS: WHITE BLOOD COUNT 29.4 X10'3 (4.5-11.0)
[2022-01-25 09:05] LABS: ANION GAP 8 (8-16); BLOOD UREA NITROGEN 32 MG/DL (7-18); BUN/CREATININE RATIO 17.3 (5.4-32.0); CHLORIDE 105 MMOL/L (99-107); CREATININE 1.85 MG/DL (0.60-1.10); GLUCOSE 158 MG/DL (70-104); POTASSIUM 4.1 MMOL/L (3.5-5.1); SODIUM 137 MMOL/L (135-145)
[2022-01-25] MEDS: clindamycin-Cleocin 900mg/D5W 50 ML IV SCH ×3 (09:05→23:47)
[2022-01-25 09:06] LABS: ALBUMIN 1.5 G/DL (3.4-5.0); CALCIUM 8.4 MG/DL (8.5-10.1); eGFR 37 ML/MIN
--- NOTE | 2022-01-25 09:17 | NUR ---
and another female visitor at bedside.
--- NOTE | 2022-01-25 10:00 | NUR ---
and sister left.
--- NOTE | 2022-01-25 10:17 | NUR ---
Dr. Alexander here to see pt.
[2022-01-25] MEDS: propofol 1000mg/100ml bottle 100 ML IV SCH ×3 (10:59→22:59)
--- NOTE | 2022-01-25 11:21 | NUR ---
CVVH machine tries to go down (alarms and stops working) when pt. "peaks pressure" on vent or is suctioned. Not turning pt. from side to side since CVVH needs to remain functioning. stone processing machine operator aware.
--- NOTE | 2022-01-25 12:43 | NUR ---
Spoke with Dr. Mijares re. MRI order and the number of gtts including 2 pressors pt. is currently on. Notified that our IV pumps are not MRI compatible and BP has been labile. Notified that pt. is on Fentanyl and Propofol. Propofol stopped per Dr. Mijares's rewuest so pt. can wake up and hopefully a neuro exam can be obtained. MRI on hold for now.
--- NOTE | 2022-01-25 12:55 | NUR ---
Dr. Mijares at bedside for neuro exam. Pt. opened eyes and moved all exts. with Propofol off.
[2022-01-25 14:47] LABS: BASOPHILS # (AUTO) 0.2 X10'3 (0-0.2); BASOPHILS % (AUTO) 0.5 % (0-1); EOSINOPHILS % (AUTO) 0.1 % (0-6); HEMATOCRIT 34.1 % (42.0-52.0); HEMOGLOBIN 11.1 g/dl (14.0-17.9); LYMPHOCYTES # (AUTO) 0.8 X10'3 (1.1-4.8); LYMPHOCYTES % (AUTO) 2.5 % (21-51); MEAN CORPUSCULAR HEMOGLOBIN 27.8 PG (27.0-31.0); MEAN CORPUSCULAR HGB CONC 32.4 g/dL (33.0-36.5); MEAN CORPUSCULAR VOLUME 85.7 FL (78-98); MEAN PLATELET VOLUME 8.4 FL (7.4-10.4); MONOCYTES # (AUTO) 1.3 X10'3 (0-0.9); MONOCYTES % (AUTO) 4.1 % (2-12); NEUTROPHILS % (AUTO) 92.8 % (42-75); PLATELET COUNT 230 X10'3 (140-440); RED BLOOD COUNT 3.97 X10'6 (4.70-6.10)
[2022-01-25 14:49] LABS: WHITE BLOOD COUNT 31.3 X10'3 (4.5-11.0)
[2022-01-25 15:00] LABS: ALBUMIN 1.6 G/DL (3.4-5.0); ANION GAP 10 (8-16); BLOOD UREA NITROGEN 32 MG/DL (7-18); BUN/CREATININE RATIO 18.7 (5.4-32.0); CALCIUM 8.6 MG/DL (8.5-10.1); CHLORIDE 105 MMOL/L (99-107); CREATININE 1.71 MG/DL (0.60-1.10); GLUCOSE 155 MG/DL (70-104); PHOSPHORUS 4.5 MG/DL (2.3-4.5); POTASSIUM 4.3 MMOL/L (3.5-5.1); SODIUM 138 MMOL/L (135-145); TOTAL CARBON DIOXIDE 22.7 MMOL/L (24-32); eGFR 40 ML/MIN
[2022-01-25] MEDS: NORepinephrine inj. 32 MG in normal saline 250ml IV soln 218 ML IV SCH (16:21)
--- NOTE | 2022-01-25 16:24 | NUR ---
Dr. Mijares notified RN that the hospital is out of Ino until tomorrow. RN hung up Levo and will titrate Ino down and Levo up to support BP and conserve Levo. per Dr. Mijares.
--- NOTE | 2022-01-25 17:15 | NUR ---
Labile BP with the titrating of 3 pressors. CVVH machine frequently alarming and requiring frequent flushing.
--- NOTE | 2022-01-25 18:11 | NUR ---
Problems reprioritized. Patient report given, questions answered & plan of care reviewed with Genie HERNÁNDEZ.
[2022-01-25] MEDS ORDERED: polyethylene glycol 3350 17gm powd pack PO SCH (21:00)
[2022-01-25] MEDS: amLODIPine 5mg tablet OGT SCH (21:00)
[2022-01-25 21:20] LABS: BASOPHILS % (AUTO) 0 % (0-1); EOSINOPHILS % (AUTO) 0.2 % (0-6); HEMATOCRIT 33.4 % (42.0-52.0); HEMOGLOBIN 10.8 g/dl (14.0-17.9); MEAN CORPUSCULAR HEMOGLOBIN 27.9 PG (27.0-31.0); MEAN CORPUSCULAR HGB CONC 32.4 g/dL (33.0-36.5); MEAN CORPUSCULAR VOLUME 86.1 FL (78-98); MEAN PLATELET VOLUME 8.6 FL (7.4-10.4); MONOCYTES # (AUTO) 1.6 X10'3 (0-0.9); NEUTROPHILS # (AUTO) 29.4 X10'3 (1.8-7.7); NEUTROPHILS % (AUTO) 91.8 % (42-75); PLATELET COUNT 201 X10'3 (140-440); RED BLOOD COUNT 3.87 X10'6 (4.70-6.10)
[2022-01-25 21:29] LABS: ALBUMIN 1.5 G/DL (3.4-5.0); ANION GAP 12 (8-16); BLOOD UREA NITROGEN 31 MG/DL (7-18); BUN/CREATININE RATIO 19.1 (5.4-32.0); CALCIUM 8.6 MG/DL (8.5-10.1); CHLORIDE 102 MMOL/L (99-107); CREATININE 1.62 MG/DL (0.60-1.10); GLUCOSE 165 MG/DL (70-104); MAGNESIUM 1.9 MG/DL (1.5-2.4); PHOSPHORUS 3.7 MG/DL (2.3-4.5); POTASSIUM 4.6 MMOL/L (3.5-5.1); SODIUM 137 MMOL/L (135-145); TOTAL CARBON DIOXIDE 22.6 MMOL/L (24-32); eGFR 43 ML/MIN
[2022-01-26] VITALS (34 sets, daily range): BP systolic 86–161; BP diastolic 47–81
[2022-01-26] MEDS: Duosol 4K/3 Ca (w/calcium) 5,000 ML HE SCH ×18 (00:49→23:29)
[2022-01-26] MEDS: hydrocortisone sod succ/PF 100mg/2ml inj. IV SCH ×4 (02:12→20:11)
[2022-01-26] MEDS: ipratropium/albuterol 3ml nebule NEB SCH ×6 (02:50→23:27)
[2022-01-26] MEDS: amiodarone/D5 360MG/200ML BAG 200 ML IV SCH ×4 (02:52→23:28)
[2022-01-26] MEDS: FENTANYL-0.9 % NACL/PF 100 ML IV PRN ×4 (02:53→21:33)
[2022-01-26] MEDS: propofol 1000mg/100ml bottle 100 ML IV SCH ×4 (02:54→19:17)
[2022-01-26 03:08] LABS: ABG BASE EXCESS -1.8 mmol/L (-2.0-2.0); ABG OXYGEN SATURATION 96.9 % (94-97); ABG PCO2 (T) 35.4 mmHg (35.0-48.0); ABG PO2 (T) 79.7 mmHg (75.0-100.0); FMetHb 0.4 % (0.0-1.5); FO2Hb 96.5 % (94-97); PATIENT TEMPERATURE 34.5; PEEP 5 cm H2O; RESPIRATORY RATE 16 b/min; TIDAL VOLUME 500 mL; TOTAL HEMOGLOBIN 12.2 G/dl (14.0-18.0)
[2022-01-26 03:32] LABS: BASOPHILS % (AUTO) 0.2 % (0-1); EOSINOPHILS % (AUTO) 0.1 % (0-6); HEMATOCRIT 32.6 % (42.0-52.0); HEMOGLOBIN 10.7 g/dl (14.0-17.9); LYMPHOCYTES # (AUTO) 0.9 X10'3 (1.1-4.8); MEAN CORPUSCULAR HEMOGLOBIN 28.1 PG (27.0-31.0); MEAN CORPUSCULAR VOLUME 85.2 FL (78-98); MEAN PLATELET VOLUME 8.4 FL (7.4-10.4); MONOCYTES # (AUTO) 1.1 X10'3 (0-0.9); MONOCYTES % (AUTO) 3.6 % (2-12); NEUTROPHILS # (AUTO) 27.8 X10'3 (1.8-7.7); NEUTROPHILS % (AUTO) 93.1 % (42-75); PLATELET COUNT 191 X10'3 (140-440); RED BLOOD COUNT 3.82 X10'6 (4.70-6.10); RED CELL DISTRIBUTION WIDTH 15.2 % (11.5-14.5)
[2022-01-26 03:42] LABS: WHITE BLOOD COUNT 29.8 X10'3 (4.5-11.0)
[2022-01-26 03:47] LABS: ALANINE AMINOTRANSFERASE 9 U/L (12-78); ALBUMIN 1.5 G/DL (3.4-5.0); ALBUMIN/GLOBULIN RATIO 0.3 (1.1-1.5); ALKALINE PHOSPHATASE 119 IU/L (46-116); ANION GAP 10 (8-16); ASPARTATE AMINO TRANSFERASE 40 U/L (10-37); BILIRUBIN,TOTAL 0.5 MG/DL (0.1-1.0); BLOOD UREA NITROGEN 30 MG/DL (7-18); BUN/CREATININE RATIO 19.5 (5.4-32.0); CALCIUM 8.7 MG/DL (8.5-10.1); CHLORIDE 103 MMOL/L (99-107); CREATININE 1.54 MG/DL (0.60-1.10); GLUCOSE 130 MG/DL (70-104); POTASSIUM 4.1 MMOL/L (3.5-5.1); SODIUM 138 MMOL/L (135-145); TOTAL CARBON DIOXIDE 24.9 MMOL/L (24-32); TOTAL PROTEIN 6.2 G/DL (6.4-8.2); eGFR 45 ML/MIN
[2022-01-26 03:51] LABS: BILIRUBIN,DIRECT 0.3 MG/DL (0-0.3); MAGNESIUM 1.9 MG/DL (1.5-2.4); PHOSPHORUS 3.5 MG/DL (2.3-4.5); PREALBUMIN 6.8 MG/DL (19-36); VANCOMYCIN,RANDOM 10.1 UG/ML
[2022-01-26] MEDS: VANCOMYCIN LEVEL IV SCH (03:52)
[2022-01-26 04:47] LABS: ANISOCYTOSIS 1+; NUCLEATED RED BLOOD CELLS 1 /100WBC (0-0); PLATELET ESTIMATE NORMAL; TOTAL CELLS COUNTED 100
[2022-01-26 04:48] LABS: POLYCHROMASIA FEW
[2022-01-26] MEDS: vasopressin inj. 40 UNIT in normal saline 50ml IV soln 38 ML IV SCH (05:07)
[2022-01-26] MEDS ORDERED: heparin 1,000 units/ml 10ml inj HE ONE ×2 (06:55)
[2022-01-26] MEDS: docusate sodium 100mg/10ml UD cup OGT SCH ×2 (07:39→20:12)
[2022-01-26] MEDS: apixaban 5mg tablet OGT SCH ×2 (07:39→20:12)
[2022-01-26] MEDS: carbidoba-levodopa 25-100mg tablet OGT SCH ×2 (07:39→20:12)
[2022-01-26] MEDS: atorvastatin 20mg tablet OGT SCH (07:39)
[2022-01-26] MEDS: pantoprazole 40MG/NS 100ML BAG 100 ML IV SCH (07:40)
[2022-01-26] MEDS: clindamycin-Cleocin 900mg/D5W 50 ML IV SCH ×2 (07:43→15:33)
[2022-01-26] MEDS: K and/or MAG REPLACEMENT MC SCH ×2 (07:45→20:00)
[2022-01-26] MEDS: mineral oil/petrolatum ophthal oint EACHEYE SCH ×3 (07:45→20:13)
[2022-01-26] MEDS: MULTIVIT-MIN/FERROUS GLUCONATE 9 MG/15 ML LIQUID OGT SCH (07:46)
[2022-01-26] MEDS: cefepime 2g/NS 100ml ADVANTAGE 100 ML IV SCH ×2 (07:58→20:11)
--- NOTE | 2022-01-26 08:07 | NUR ---
Dr. Mijares at bedside. Updated on gtts, etc. Order rec'd to dc Insulin gtt and start Hyper/Hypoglycemia protocol and to wean pressors in this order; Ino (currently off), Levo and then Vasopressin. HD RN here to initiate CVVH.
[2022-01-26] MEDS ORDERED: vancomycin/NS 1 GM ADD-VANTAGE 250 ML IV ONE (08:10)
[2022-01-26] MEDS ORDERED: dextrose 50%-water 50ml dispensing syringe IV PRN ×2 (08:35)
[2022-01-26] MEDS ORDERED: glucagon, human recombinant 1mg kit SUBCUT PRN (08:35)
[2022-01-26] MEDS ORDERED: DEXTROSE 15 GM of carb/4 tabs (each vial/BOTTLE has 4 tablets) PO PRN ×2 (08:35)
--- NOTE | 2022-01-26 09:16 | NUR ---
CVVH back up at 0900. Pt. unable to lie on left side. Will keep pt. turned to right side so CVVH can work.
[2022-01-26 09:24] LABS: BASOPHILS # (AUTO) 0.1 X10'3 (0-0.2); EOSINOPHILS % (AUTO) 0.1 % (0-6); HEMOGLOBIN 10.3 g/dl (14.0-17.9); MEAN CORPUSCULAR VOLUME 86.9 FL (78-98)
[2022-01-26 09:25] LABS: BASOPHILS % (AUTO) 0.2 % (0-1); HEMATOCRIT 31.5 % (42.0-52.0); LYMPHOCYTES # (AUTO) 0.8 X10'3 (1.1-4.8); LYMPHOCYTES % (AUTO) 2.5 % (21-51); MEAN CORPUSCULAR HEMOGLOBIN 28.2 PG (27.0-31.0); MEAN CORPUSCULAR HGB CONC 32.5 g/dL (33.0-36.5); MONOCYTES # (AUTO) 1.3 X10'3 (0-0.9); NEUTROPHILS # (AUTO) 31.3 X10'3 (1.8-7.7); NEUTROPHILS % (AUTO) 93.2 % (42-75); PLATELET COUNT 178 X10'3 (140-440); RED BLOOD COUNT 3.63 X10'6 (4.70-6.10); RED CELL DISTRIBUTION WIDTH 15.4 % (11.5-14.5)
[2022-01-26 09:29] LABS: WHITE BLOOD COUNT 33.5 X10'3 (4.5-11.0)
[2022-01-26 09:35] LABS: ALBUMIN 1.5 G/DL (3.4-5.0); ANION GAP 12 (8-16); BLOOD UREA NITROGEN 34 MG/DL (7-18); BUN/CREATININE RATIO 20.2 (5.4-32.0); CALCIUM 8.4 MG/DL (8.5-10.1); CHLORIDE 102 MMOL/L (99-107); CREATININE 1.68 MG/DL (0.60-1.10); GLUCOSE 150 MG/DL (70-104); MAGNESIUM 2.1 MG/DL (1.5-2.4); PHOSPHORUS 4.1 MG/DL (2.3-4.5); POTASSIUM 4.7 MMOL/L (3.5-5.1); SODIUM 137 MMOL/L (135-145); TOTAL CARBON DIOXIDE 23.5 MMOL/L (24-32); eGFR 41 ML/MIN
--- NOTE | 2022-01-26 09:46 | NUR ---
Dr. Hauser in to see pt. Notified of WBC 33.5.
--- NOTE | 2022-01-26 10:09 | NUR ---
Dr. Alexander at bedside. Updated on plan of care.
--- NOTE | 2022-01-26 10:32 | NUR ---
ROUNDS NOTE: Do not start tube feeds today. Try pt. on spont. setting on vent. Continue to wean pressors.
--- NOTE | 2022-01-26 10:38 | NUR ---
RT. placed pt's vent on SPONT mode.
--- NOTE | 2022-01-26 11:04 | NUR ---
Reassessment: Pt remains intubated and sedated, Propofol currently at 18.45ml/hr providing 487kcals/day. However, TF has been off for ~2days as pt has had residuals between 250-525ml per documentation. Pt had residuals of 320ml last check this morning per RN and has had no TF for at least a day; MD aware of this and is okay w/ holding TF for today but then restarting them after. Pt had large liquid BM 01/25 per nursing notes. Continues on CVVH. Consider gut motility agent if residuals persist and MD agreeable. Noted Chase score 12, w/ L calf cellulitis per EMR. Will continue to monitor and adjust needs as appropriate. Recommendations: 1. Continuous TF using Vital HP with 80 mL/hr goal rate. To provide 1920 mL total volume/day, 1920kcal, 168 g protein, and 1605 mL water 2. IF Propofol remains at 18.45ml/hr (487kcals) total calories delivered are still within pt's est needs. 3. Monitor Propofol rate and need to adjust TF 4. No additional water flush at this time in view of renal status; monitor serum Na 5. Prealbumin q Wednesday/ 6. Daily scaled weights 7. Routine bowel care 7. DM education once stable following extubation; A1c 10.1% Addendum: 01/26/22 at [address] Amended: Links added.
--- NOTE | 2022-01-26 11:55 | NUR ---
Esopageal temp probe not accurate. Dc'd and inserted a new one. Obtained a new temp cable. Still inaccurate. Dc'd and will check temp alternate ways.
[2022-01-26] MEDS: insulin Lispro (HumaLOG) vial - multi-dose SQ SCH ×2 (13:44→20:41)
[2022-01-26 15:19] LABS: BASOPHILS # (AUTO) 0.1 X10'3 (0-0.2); BASOPHILS % (AUTO) 0.4 % (0-1); EOSINOPHILS % (AUTO) 0 % (0-6); HEMATOCRIT 32.2 % (42.0-52.0); HEMOGLOBIN 10.5 g/dl (14.0-17.9); LYMPHOCYTES # (AUTO) 0.7 X10'3 (1.1-4.8); LYMPHOCYTES % (AUTO) 2.3 % (21-51); MEAN CORPUSCULAR HEMOGLOBIN 28.2 PG (27.0-31.0); MEAN CORPUSCULAR HGB CONC 32.6 g/dL (33.0-36.5); MEAN CORPUSCULAR VOLUME 86.8 FL (78-98); MEAN PLATELET VOLUME 8.4 FL (7.4-10.4); MONOCYTES % (AUTO) 3.2 % (2-12); NEUTROPHILS # (AUTO) 29.3 X10'3 (1.8-7.7); NEUTROPHILS % (AUTO) 94.1 % (42-75); PLATELET COUNT 200 X10'3 (140-440); RED BLOOD COUNT 3.71 X10'6 (4.70-6.10); RED CELL DISTRIBUTION WIDTH 15.5 % (11.5-14.5)
[2022-01-26 15:21] LABS: WHITE BLOOD COUNT 31.1 X10'3 (4.5-11.0)
[2022-01-26 15:27] LABS: ALBUMIN 1.6 G/DL (3.4-5.0); ANION GAP 15 (8-16); BLOOD UREA NITROGEN 35 MG/DL (7-18); BUN/CREATININE RATIO 21.6 (5.4-32.0); CALCIUM 8.9 MG/DL (8.5-10.1); CHLORIDE 100 MMOL/L (99-107); CREATININE 1.62 MG/DL (0.60-1.10); GLUCOSE 235 MG/DL (70-104); MAGNESIUM 2.1 MG/DL (1.5-2.4); PHOSPHORUS 4.2 MG/DL (2.3-4.5); POTASSIUM 4.9 MMOL/L (3.5-5.1); SODIUM 136 MMOL/L (135-145); TOTAL CARBON DIOXIDE 20.6 MMOL/L (24-32); eGFR 43 ML/MIN
--- NOTE | 2022-01-26 17:24 | NUR ---
Christal called for update. Update provided.
[2022-01-26] MEDS: polyethylene glycol 3350 17gm powd pack OGT SCH (20:12)
[2022-01-26] MEDS: amLODIPine 5mg tablet OGT SCH (20:37)
[2022-01-26] MEDS: insulin glargine (Lantus) pen - multi-dose SQ SCH (20:39)
[2022-01-26 21:37] LABS: BASOPHILS # (AUTO) 0.1 X10'3 (0-0.2); MEAN CORPUSCULAR HEMOGLOBIN 28.1 PG (27.0-31.0); MEAN CORPUSCULAR HGB CONC 32.5 g/dL (33.0-36.5)
[2022-01-26 21:38] LABS: BASOPHILS % (AUTO) 0.3 % (0-1); EOSINOPHILS % (AUTO) 0 % (0-6); HEMATOCRIT 32.1 % (42.0-52.0); HEMOGLOBIN 10.4 g/dl (14.0-17.9); LYMPHOCYTES # (AUTO) 0.9 X10'3 (1.1-4.8); MEAN CORPUSCULAR VOLUME 86.4 FL (78-98); MEAN PLATELET VOLUME 8.5 FL (7.4-10.4); MONOCYTES # (AUTO) 1.3 X10'3 (0-0.9); MONOCYTES % (AUTO) 4.5 % (2-12); NEUTROPHILS # (AUTO) 27.3 X10'3 (1.8-7.7); NEUTROPHILS % (AUTO) 92.2 % (42-75); PLATELET COUNT 201 X10'3 (140-440); RED BLOOD COUNT 3.71 X10'6 (4.70-6.10); RED CELL DISTRIBUTION WIDTH 15.3 % (11.5-14.5)
[2022-01-26 21:48] LABS: ALBUMIN 1.6 G/DL (3.4-5.0); ANION GAP 13 (8-16); BLOOD UREA NITROGEN 34 MG/DL (7-18); BUN/CREATININE RATIO 21.8 (5.4-32.0); CHLORIDE 100 MMOL/L (99-107); CREATININE 1.56 MG/DL (0.60-1.10); GLUCOSE 254 MG/DL (70-104); PHOSPHORUS 4.1 MG/DL (2.3-4.5); POTASSIUM 4.9 MMOL/L (3.5-5.1); SODIUM 135 MMOL/L (135-145); eGFR 45 ML/MIN
[2022-01-26 21:51] LABS: WHITE BLOOD COUNT 29.6 X10'3 (4.5-11.0)
[2022-01-26 22:14] LABS: TOTAL CELLS COUNTED 100
[2022-01-26 22:15] LABS: PLATELET ESTIMATE NORMAL
[2022-01-26 22:16] LABS: ANISOCYTOSIS FEW; POLYCHROMASIA FEW; TEAR DROP CELLS FEW
[2022-01-27] VITALS (35 sets, daily range): BP systolic 93–148; BP diastolic 47–77
[2022-01-27] MEDS: propofol 1000mg/100ml bottle 100 ML IV SCH ×4 (01:43→22:49)
[2022-01-27] MEDS: hydrocortisone sod succ/PF 100mg/2ml inj. IV SCH ×4 (01:44→19:55)
[2022-01-27] MEDS: amiodarone/D5 360MG/200ML BAG 200 ML IV SCH ×4 (01:44→23:52)
[2022-01-27] MEDS: Duosol 4K/3 Ca (w/calcium) 5,000 ML HE SCH ×15 (02:34→22:50)
[2022-01-27] MEDS: VANCOMYCIN LEVEL IV SCH (02:40)
[2022-01-27] MEDS: ipratropium/albuterol 3ml nebule NEB SCH ×6 (03:07→23:13)
[2022-01-27] MEDS: insulin Lispro (HumaLOG) vial - multi-dose SQ SCH ×3 (03:10→13:44)
[2022-01-27 03:13] LABS: ABG BASE EXCESS -2.4 mmol/L (-2.0-2.0); ABG HCO3 21.7 mmol/L (22.0-26.0); ABG OXYGEN SATURATION 96.1 % (94-97); ABG PCO2 (T) 32.9 mmHg (35.0-48.0); ABG PO2 (T) 74.8 mmHg (75.0-100.0); FCOHb 0.3 % (0.0-3.9); FMetHb 0.2 % (0.0-1.5); FO2Hb 95.6 % (94-97); PATIENT TEMPERATURE 35.6; PEEP 5 cm H2O; TOTAL HEMOGLOBIN 11.1 G/dl (14.0-18.0)
[2022-01-27 03:31] LABS: BASOPHILS % (AUTO) 0.1 % (0-1); EOSINOPHILS % (AUTO) 0.1 % (0-6); HEMATOCRIT 30.5 % (42.0-52.0); HEMOGLOBIN 9.9 g/dl (14.0-17.9); LYMPHOCYTES # (AUTO) 0.8 X10'3 (1.1-4.8); MEAN CORPUSCULAR HEMOGLOBIN 28.2 PG (27.0-31.0); MEAN CORPUSCULAR HGB CONC 32.5 g/dL (33.0-36.5); MEAN CORPUSCULAR VOLUME 86.8 FL (78-98); MEAN PLATELET VOLUME 8.6 FL (7.4-10.4); MONOCYTES % (AUTO) 3.7 % (2-12); NEUTROPHILS # (AUTO) 25.6 X10'3 (1.8-7.7); NEUTROPHILS % (AUTO) 93.1 % (42-75); PLATELET COUNT 209 X10'3 (140-440); RED BLOOD COUNT 3.52 X10'6 (4.70-6.10); RED CELL DISTRIBUTION WIDTH 14.7 % (11.5-14.5)
[2022-01-27 03:45] LABS: WHITE BLOOD COUNT 27.5 X10'3 (4.5-11.0)
[2022-01-27 03:47] LABS: ALANINE AMINOTRANSFERASE 11 U/L (12-78); ALBUMIN 1.6 G/DL (3.4-5.0); ALBUMIN/GLOBULIN RATIO 0.3 (1.1-1.5); ALKALINE PHOSPHATASE 118 IU/L (46-116); ANION GAP 14 (8-16); ASPARTATE AMINO TRANSFERASE 25 U/L (10-37); BILIRUBIN,TOTAL 0.7 MG/DL (0.1-1.0); BLOOD UREA NITROGEN 34 MG/DL (7-18); BUN/CREATININE RATIO 22.4 (5.4-32.0); CALCIUM 8.7 MG/DL (8.5-10.1); CHLORIDE 99 MMOL/L (99-107); CREATININE 1.52 MG/DL (0.60-1.10); GLUCOSE 261 MG/DL (70-104); POTASSIUM 4.8 MMOL/L (3.5-5.1); SODIUM 135 MMOL/L (135-145); TOTAL CARBON DIOXIDE 22.1 MMOL/L (24-32); TOTAL PROTEIN 6.6 G/DL (6.4-8.2); VANCOMYCIN,RANDOM 11.8 UG/ML; eGFR 46 ML/MIN
[2022-01-27] MEDS: FENTANYL-0.9 % NACL/PF 100 ML IV PRN ×4 (05:39→22:49)
[2022-01-27] MEDS: apixaban 5mg tablet OGT SCH ×2 (07:23→19:56)
[2022-01-27] MEDS: docusate sodium 100mg/10ml UD cup OGT SCH ×2 (07:23→19:56)
[2022-01-27] MEDS: atorvastatin 20mg tablet OGT SCH (07:23)
[2022-01-27] MEDS: carbidoba-levodopa 25-100mg tablet OGT SCH ×2 (07:23→19:55)
[2022-01-27] MEDS: cefepime 2g/NS 100ml ADVANTAGE 100 ML IV SCH ×2 (07:24→19:55)
[2022-01-27] MEDS: K and/or MAG REPLACEMENT MC SCH ×2 (07:25→19:56)
[2022-01-27] MEDS: pantoprazole 40MG/NS 100ML BAG 100 ML IV SCH (07:25)
[2022-01-27] MEDS: MULTIVIT-MIN/FERROUS GLUCONATE 9 MG/15 ML LIQUID OGT SCH (07:25)
[2022-01-27] MEDS: mineral oil/petrolatum ophthal oint EACHEYE SCH ×3 (07:26→23:51)
--- NOTE | 2022-01-27 07:39 | NUR ---
Dr. Alexander in to see pt. Ordered Net Uf to lincrease to 50 from 25.
--- NOTE | 2022-01-27 07:49 | NUR ---
Dr. Hauser in to see pt.
[2022-01-27] MEDS: PHENYLephrine 100 MG in NS 250ml IV soln IV SCH (07:55)
[2022-01-27] MEDS: clindamycin-Cleocin 900mg/D5W 50 ML IV SCH ×4 (08:35→23:51)
[2022-01-27 08:55] LABS: BASOPHILS # (AUTO) 0.1 X10'3 (0-0.2); BASOPHILS % (AUTO) 0.2 % (0-1); EOSINOPHILS % (AUTO) 0.1 % (0-6); HEMATOCRIT 30.4 % (42.0-52.0); HEMOGLOBIN 9.9 g/dl (14.0-17.9); LYMPHOCYTES % (AUTO) 3.9 % (21-51); MEAN CORPUSCULAR HEMOGLOBIN 28.1 PG (27.0-31.0); MEAN CORPUSCULAR HGB CONC 32.7 g/dL (33.0-36.5); MEAN CORPUSCULAR VOLUME 85.9 FL (78-98); MEAN PLATELET VOLUME 8.1 FL (7.4-10.4); MONOCYTES # (AUTO) 0.8 X10'3 (0-0.9); MONOCYTES % (AUTO) 3.3 % (2-12); NEUTROPHILS # (AUTO) 23.7 X10'3 (1.8-7.7); NEUTROPHILS % (AUTO) 92.5 % (42-75); PLATELET COUNT 210 X10'3 (140-440); RED BLOOD COUNT 3.53 X10'6 (4.70-6.10); RED CELL DISTRIBUTION WIDTH 14.6 % (11.5-14.5)
[2022-01-27 08:59] LABS: WHITE BLOOD COUNT 25.6 X10'3 (4.5-11.0)
[2022-01-27 09:09] LABS: ALBUMIN 1.7 G/DL (3.4-5.0); ANION GAP 14 (8-16); BLOOD UREA NITROGEN 34 MG/DL (7-18); BUN/CREATININE RATIO 24.8 (5.4-32.0); CHLORIDE 103 MMOL/L (99-107); CREATININE 1.37 MG/DL (0.60-1.10); GLUCOSE 239 MG/DL (70-104); PHOSPHORUS 3.5 MG/DL (2.3-4.5); POTASSIUM 4.4 MMOL/L (3.5-5.1); SODIUM 138 MMOL/L (135-145); TOTAL CARBON DIOXIDE 21.5 MMOL/L (24-32); eGFR 52 ML/MIN
[2022-01-27 09:37] LABS: PLATELET ESTIMATE NORMAL; TOTAL CELLS COUNTED 100
[2022-01-27 09:39] LABS: POLYCHROMASIA FEW
--- NOTE | 2022-01-27 09:52 | NUR ---
Dr. Mijares at bedside. Christal at bedside. New orders received to start trickle feeds and start Midrodrine.
[2022-01-27] MEDS: midodrine 5mg tablet OGT SCH ×3 (10:13→15:38)
--- NOTE | 2022-01-27 10:34 | NUR ---
Trickle feeds started.
[2022-01-27 10:51] LABS: TRIGLYCERIDES 245 MG/DL (20-135)
[2022-01-27] MEDS: vasopressin inj. 40 UNIT in normal saline 50ml IV soln 38 ML IV SCH (11:09)
--- NOTE | 2022-01-27 11:11 | NUR ---
F/u 01/27: Pt TF held since 01/24 r/t GRV 525ml w/ subsequent GRV's WNL past ~2.5 days; now to restart at trickle rate this AM per . NADIA recommended post-pyloric feeding if further GRV's remain elevated at rounds this AM; MD is agreeable. Propofol down to 14.76ml/hr this AM at rounds providing additional 390 kcals/day. Will monitor for further TF tolerance and adjustment needs. Addendum: 01/27/22 at [address] Amended: Links added.
--- NOTE | 2022-01-27 13:33 | NUR ---
PICC placed and CXR obtained for placement. Dr. Mijares notified of high triglycerides. Stated to continue to use Propofol for now.
[2022-01-27] MEDS ORDERED: vancomycin/NS 1 GM ADD-VANTAGE 250 ML X 1 DOSE IV ONE (13:45)
[2022-01-27 15:17] LABS: BASOPHILS # (AUTO) 0.1 X10'3 (0-0.2); BASOPHILS % (AUTO) 0.2 % (0-1); EOSINOPHILS % (AUTO) 0 % (0-6); HEMATOCRIT 30.2 % (42.0-52.0); HEMOGLOBIN 9.8 g/dl (14.0-17.9); LYMPHOCYTES # (AUTO) 0.9 X10'3 (1.1-4.8); LYMPHOCYTES % (AUTO) 3.6 % (21-51); MEAN CORPUSCULAR HEMOGLOBIN 27.6 PG (27.0-31.0); MEAN CORPUSCULAR HGB CONC 32.4 g/dL (33.0-36.5); MEAN CORPUSCULAR VOLUME 85.3 FL (78-98); MEAN PLATELET VOLUME 8.4 FL (7.4-10.4); MONOCYTES # (AUTO) 1.3 X10'3 (0-0.9); NEUTROPHILS # (AUTO) 24.3 X10'3 (1.8-7.7); NEUTROPHILS % (AUTO) 91.2 % (42-75); PLATELET COUNT 216 X10'3 (140-440); RED BLOOD COUNT 3.55 X10'6 (4.70-6.10); RED CELL DISTRIBUTION WIDTH 14.4 % (11.5-14.5)
[2022-01-27 15:19] LABS: ALBUMIN 1.6 G/DL (3.4-5.0); ANION GAP 11 (8-16); BLOOD UREA NITROGEN 33 MG/DL (7-18); BUN/CREATININE RATIO 25.2 (5.4-32.0); CHLORIDE 104 MMOL/L (99-107); CREATININE 1.31 MG/DL (0.60-1.10); GLUCOSE 229 MG/DL (70-104); PHOSPHORUS 3.1 MG/DL (2.3-4.5); POTASSIUM 4.7 MMOL/L (3.5-5.1); SODIUM 138 MMOL/L (135-145); TOTAL CARBON DIOXIDE 22.6 MMOL/L (24-32); eGFR 55 ML/MIN
[2022-01-27 15:21] LABS: WHITE BLOOD COUNT 26.6 X10'3 (4.5-11.0)
[2022-01-27] MEDS: NORepinephrine inj. 32 MG in normal saline 250ml IV soln 218 ML IV SCH (17:19)
[2022-01-27] MEDS: polyethylene glycol 3350 17gm powd pack OGT SCH (19:55)
[2022-01-27] MEDS: amLODIPine 5mg tablet OGT SCH (19:56)
[2022-01-27] MEDS: insulin glargine (Lantus) pen - multi-dose SQ SCH (20:19)
[2022-01-27] MEDS: insulin regular, human U-100 3ml vial - multi-dose SQ SCH (20:30)
[2022-01-27 21:18] LABS: BASOPHILS # (AUTO) 0.1 X10'3 (0-0.2); BASOPHILS % (AUTO) 0.3 % (0-1); EOSINOPHILS % (AUTO) 0.1 % (0-6); HEMATOCRIT 28.9 % (42.0-52.0); HEMOGLOBIN 9.6 g/dl (14.0-17.9); LYMPHOCYTES # (AUTO) 1.1 X10'3 (1.1-4.8); LYMPHOCYTES % (AUTO) 3.9 % (21-51); MEAN CORPUSCULAR HEMOGLOBIN 28.5 PG (27.0-31.0); MEAN CORPUSCULAR HGB CONC 33.3 g/dL (33.0-36.5); MEAN CORPUSCULAR VOLUME 85.8 FL (78-98); MEAN PLATELET VOLUME 8.3 FL (7.4-10.4); MONOCYTES # (AUTO) 1.3 X10'3 (0-0.9); MONOCYTES % (AUTO) 4.6 % (2-12); NEUTROPHILS % (AUTO) 91.1 % (42-75); PLATELET COUNT 218 X10'3 (140-440); RED BLOOD COUNT 3.37 X10'6 (4.70-6.10); RED CELL DISTRIBUTION WIDTH 14.3 % (11.5-14.5)
[2022-01-27 21:27] LABS: WHITE BLOOD COUNT 27.4 X10'3 (4.5-11.0)
[2022-01-27 21:28] LABS: ALBUMIN 1.6 G/DL (3.4-5.0); ANION GAP 13 (8-16); BLOOD UREA NITROGEN 34 MG/DL (7-18); CHLORIDE 101 MMOL/L (99-107); CREATININE 1.36 MG/DL (0.60-1.10); GLUCOSE 210 MG/DL (70-104); MAGNESIUM 2.1 MG/DL (1.5-2.4); PHOSPHORUS 2.9 MG/DL (2.3-4.5); POTASSIUM 4.5 MMOL/L (3.5-5.1); SODIUM 136 MMOL/L (135-145); TOTAL CARBON DIOXIDE 21.8 MMOL/L (24-32); eGFR 52 ML/MIN
[2022-01-28] VITALS (34 sets, daily range): BP systolic 102–145; BP diastolic 46–80
[2022-01-28] MEDS: amiodarone/D5 360MG/200ML BAG 200 ML IV SCH ×2 (00:30→05:44)
[2022-01-28 00:38] LABS: NUCLEATED RED BLOOD CELLS 1 /100WBC (0-0); TOTAL CELLS COUNTED 100
[2022-01-28 00:39] LABS: PLATELET ESTIMATE NORMAL
[2022-01-28 00:40] LABS: ELLIPTOCYTES FEW; POLYCHROMASIA FEW
[2022-01-28] MEDS: Duosol 4K/3 Ca (w/calcium) 5,000 ML HE SCH ×13 (01:29→23:55)
[2022-01-28] MEDS: hydrocortisone sod succ/PF 100mg/2ml inj. IV SCH ×4 (01:30→19:47)
[2022-01-28] MEDS: ipratropium/albuterol 3ml nebule NEB SCH ×6 (02:22→23:24)
[2022-01-28 02:33] LABS: ABG BASE EXCESS -0.9 mmol/L (-2.0-2.0); ABG HCO3 21.9 mmol/L (22.0-26.0); ABG OXYGEN SATURATION 95.3 % (94-97); ABG PCO2 (T) 29.7 mmHg (35.0-48.0); ABG PO2 (T) 74.2 mmHg (75.0-100.0); FCOHb 0.3 % (0.0-3.9); FMetHb 0.1 % (0.0-1.5); FO2Hb 94.9 % (94-97); PATIENT TEMPERATURE 36.7; PEEP 5 cm H2O; TOTAL HEMOGLOBIN 11.2 G/dl (14.0-18.0)
[2022-01-28] MEDS: VANCOMYCIN LEVEL IV SCH (02:38)
[2022-01-28] MEDS: insulin regular, human U-100 3ml vial - multi-dose SQ SCH ×4 (02:38→20:33)
[2022-01-28 03:04] LABS: BASOPHILS % (AUTO) 0.1 % (0-1); EOSINOPHILS % (AUTO) 0.2 % (0-6); HEMATOCRIT 30.6 % (42.0-52.0); LYMPHOCYTES # (AUTO) 1.2 X10'3 (1.1-4.8); LYMPHOCYTES % (AUTO) 4.2 % (21-51); MEAN CORPUSCULAR HGB CONC 32.7 g/dL (33.0-36.5); MEAN CORPUSCULAR VOLUME 85.6 FL (78-98); MEAN PLATELET VOLUME 8.2 FL (7.4-10.4); MONOCYTES # (AUTO) 1.7 X10'3 (0-0.9); MONOCYTES % (AUTO) 6.1 % (2-12); NEUTROPHILS # (AUTO) 24.5 X10'3 (1.8-7.7); NEUTROPHILS % (AUTO) 89.4 % (42-75); PLATELET COUNT 216 X10'3 (140-440); RED BLOOD COUNT 3.57 X10'6 (4.70-6.10); RED CELL DISTRIBUTION WIDTH 14.5 % (11.5-14.5)
[2022-01-28 03:10] LABS: ALBUMIN 1.6 G/DL (3.4-5.0); ALBUMIN/GLOBULIN RATIO 0.3 (1.1-1.5); ALKALINE PHOSPHATASE 110 IU/L (46-116); ANION GAP 12 (8-16); ASPARTATE AMINO TRANSFERASE 21 U/L (10-37); BILIRUBIN,TOTAL 0.8 MG/DL (0.1-1.0); BLOOD UREA NITROGEN 32 MG/DL (7-18); BUN/CREATININE RATIO 23.7 (5.4-32.0); CALCIUM 8.9 MG/DL (8.5-10.1); CHLORIDE 101 MMOL/L (99-107); CREATININE 1.35 MG/DL (0.60-1.10); GLUCOSE 216 MG/DL (70-104); MAGNESIUM 2.1 MG/DL (1.5-2.4); PHOSPHORUS 3.2 MG/DL (2.3-4.5); POTASSIUM 4.6 MMOL/L (3.5-5.1); SODIUM 136 MMOL/L (135-145); TOTAL CARBON DIOXIDE 22.6 MMOL/L (24-32); TOTAL PROTEIN 6.2 G/DL (6.4-8.2); VANCOMYCIN,RANDOM 12.8 UG/ML; eGFR 53 ML/MIN
[2022-01-28 03:20] LABS: ALANINE AMINOTRANSFERASE 13 U/L (12-78)
[2022-01-28 03:25] LABS: WHITE BLOOD COUNT 27.4 X10'3 (4.5-11.0)
[2022-01-28] MEDS: dexmedetomidine/D5W 100mL 100 ML IV SCH ×5 (05:43→23:28)
--- NOTE | 2022-01-28 06:45 | NUR ---
CVVH machine down. Blood returned to patient. Plan is for patient to be started on HD. Ports of Gutierrez flushed.
--- NOTE | 2022-01-28 07:00 | NUR ---
Patient blood pressure on the arterial line reading as SBP of 60s-50s. Compared to cuff pressure this was showing a SBP of 90s-80s. Levophed was restarted. Inaccurate arterial line reported to MD. Plan to remove and place a new one in the radial.
[2022-01-28] MEDS: K and/or MAG REPLACEMENT MC SCH ×2 (07:33→19:47)
[2022-01-28] MEDS: pantoprazole 40MG/NS 100ML BAG 100 ML IV SCH (07:40)
[2022-01-28] MEDS: atorvastatin 20mg tablet OGT SCH (07:42)
[2022-01-28] MEDS: docusate sodium 100mg/10ml UD cup OGT SCH ×2 (07:42→19:47)
[2022-01-28] MEDS: apixaban 5mg tablet OGT SCH ×2 (07:42→19:47)
[2022-01-28] MEDS: carbidoba-levodopa 25-100mg tablet OGT SCH ×2 (07:42→19:47)
[2022-01-28] MEDS: midodrine 5mg tablet OGT SCH ×3 (07:42→15:52)
[2022-01-28] MEDS ORDERED: NOREPINEPHRINE BITARTRATE/D5W 250 ML IV PRN (07:50)
[2022-01-28] MEDS ORDERED: NORepinephrine 8mg/ 250ml NS 250 ML IV ONE (07:54)
[2022-01-28] MEDS ORDERED: NORepinephrine 8mg/ 250ml NS 250 ML IV PRN (07:54)
[2022-01-28] MEDS ORDERED: vancomycin/NS 1 GM ADD-VANTAGE 250 ML X 1 DOSE IV ONE (08:00)
--- NOTE | 2022-01-28 08:00 | NUR ---
Dr. Alexander rounded on patient for Nephrology, he would like patient restarted on CVVH due to the need for Levophed again and stated that he would call the [facility] nurse on-call.
[2022-01-28] MEDS: MULTIVIT-MIN/FERROUS GLUCONATE 9 MG/15 ML LIQUID OGT SCH (08:04)
[2022-01-28] MEDS: FENTANYL-0.9 % NACL/PF 100 ML IV PRN ×2 (08:12→19:46)
[2022-01-28] MEDS: PHENYLephrine 100 MG in NS 250ml IV soln IV SCH (08:35)
[2022-01-28] MEDS: mineral oil/petrolatum ophthal oint EACHEYE SCH ×3 (08:39→23:55)
[2022-01-28] MEDS: cefepime 2g/NS 100ml ADVANTAGE 100 ML IV SCH ×2 (08:40→19:47)
[2022-01-28] MEDS: clindamycin-Cleocin 900mg/D5W 50 ML IV SCH ×2 (09:39→15:51)
--- NOTE | 2022-01-28 10:00 | NUR ---
Patient restarted on CVVH.
--- NOTE | 2022-01-28 10:30 | NUR ---
Rounds: Switch from Amio IV to Amio OGT Wound care to readdress dressing order due to maceration of the leg Attempt to wean Levophed as tolerated Dr. Mijares to place a new arterial line in the radial so we can d/c the femoral arterial line
--- NOTE | 2022-01-28 11:12 | NUR ---
F/u 01/28: Pt remains intubated on CVVH tolerating TF trickle yesterday and advancing to 50ml/hr in near future this AM per RN w/ goal of 80ml/hr. Propofol currently off per RN at rounds; will monitor for further changes and TF rate adjustment needs pending tolerance at goal rate. Large BM late 01/27 per RN receiving routine colace and miralax HS. Will continue to monitor. Recommendations: 1. Continuous TF using Vital HP with 80 mL/hr goal rate. To provide 1920 mL total volume/day, 1920kcal, 168 g protein, and 1605 mL water 2. Monitor Propofol rate and need to adjust TF; consider post-pyloric feeds to optimize EN tolerance 3. IF Propofol remains off; consider advancing Vital High Protein to 87ml/hr goal 4. No additional water flush at this time in view of renal status; monitor serum Na 5. Prealbumin q Wednesday/ 6. Daily scaled weights 7. Routine bowel care 8. DM education once stable following extubation; A1c 10.1% Addendum: 01/28/22 at [address] Amended: Links added.
[2022-01-28 11:39] LABS: BASOPHILS # (AUTO) 0.1 X10'3 (0-0.2); BASOPHILS % (AUTO) 0.3 % (0-1); EOSINOPHILS % (AUTO) 0.2 % (0-6); HEMATOCRIT 29.3 % (42.0-52.0); HEMOGLOBIN 9.7 g/dl (14.0-17.9); LYMPHOCYTES # (AUTO) 1.2 X10'3 (1.1-4.8); LYMPHOCYTES % (AUTO) 4.8 % (21-51); MEAN CORPUSCULAR HEMOGLOBIN 28.4 PG (27.0-31.0); MEAN CORPUSCULAR HGB CONC 33.1 g/dL (33.0-36.5); MEAN CORPUSCULAR VOLUME 85.9 FL (78-98); MONOCYTES # (AUTO) 1.3 X10'3 (0-0.9); MONOCYTES % (AUTO) 5.1 % (2-12); NEUTROPHILS # (AUTO) 22.6 X10'3 (1.8-7.7); NEUTROPHILS % (AUTO) 89.6 % (42-75); PLATELET COUNT 217 X10'3 (140-440); RED BLOOD COUNT 3.41 X10'6 (4.70-6.10); RED CELL DISTRIBUTION WIDTH 14.3 % (11.5-14.5)
[2022-01-28 11:41] LABS: WHITE BLOOD COUNT 25.2 X10'3 (4.5-11.0)
[2022-01-28] MEDS: amiodarone 200mg tablet OGT SCH ×2 (11:44→19:47)
[2022-01-28 11:50] LABS: ALBUMIN 1.6 G/DL (3.4-5.0); ANION GAP 9 (8-16); BLOOD UREA NITROGEN 36 MG/DL (7-18); BUN/CREATININE RATIO 24.2 (5.4-32.0); CHLORIDE 101 MMOL/L (99-107); CREATININE 1.49 MG/DL (0.60-1.10); GLUCOSE 232 MG/DL (70-104); PHOSPHORUS 3.7 MG/DL (2.3-4.5); POTASSIUM 4.6 MMOL/L (3.5-5.1); SODIUM 133 MMOL/L (135-145); TOTAL CARBON DIOXIDE 22.8 MMOL/L (24-32); eGFR 47 ML/MIN
[2022-01-28 11:54] LABS: TOTAL CELLS COUNTED 100
[2022-01-28 11:55] LABS: PLATELET ESTIMATE NORMAL
--- NOTE | 2022-01-28 13:00 | NUR ---
Dr. Mijares in to place ultrasound guided arterial line into the right radial artery. Successful arterial line placement with minimal bleeding. Dr. Mijares cleaned and dressed the site in a sterile fashion
--- NOTE | 2022-01-28 16:30 | NUR ---
Spoke with , Christal, who was looking for an update. Update provided, RN stating that there haven't been many changes since the morning, patient has been tolerating the CVVH well.
[2022-01-28 17:48] LABS: BASOPHILS % (AUTO) 0.2 % (0-1); EOSINOPHILS % (AUTO) 0.1 % (0-6); HEMATOCRIT 29.8 % (42.0-52.0); HEMOGLOBIN 9.8 g/dl (14.0-17.9); LYMPHOCYTES # (AUTO) 0.9 X10'3 (1.1-4.8); LYMPHOCYTES % (AUTO) 3.7 % (21-51); MEAN CORPUSCULAR VOLUME 84.9 FL (78-98); MEAN PLATELET VOLUME 8.3 FL (7.4-10.4); MONOCYTES # (AUTO) 1.1 X10'3 (0-0.9); MONOCYTES % (AUTO) 4.7 % (2-12); NEUTROPHILS # (AUTO) 21.3 X10'3 (1.8-7.7); NEUTROPHILS % (AUTO) 91.3 % (42-75); PLATELET COUNT 222 X10'3 (140-440); RED BLOOD COUNT 3.51 X10'6 (4.70-6.10); RED CELL DISTRIBUTION WIDTH 14.3 % (11.5-14.5); WHITE BLOOD COUNT 23.4 X10'3 (4.5-11.0)
[2022-01-28 17:55] LABS: ALBUMIN 1.6 G/DL (3.4-5.0); ANION GAP 8 (8-16); BLOOD UREA NITROGEN 36 MG/DL (7-18); BUN/CREATININE RATIO 26.9 (5.4-32.0); CHLORIDE 104 MMOL/L (99-107); CREATININE 1.34 MG/DL (0.60-1.10); GLUCOSE 262 MG/DL (70-104); PHOSPHORUS 3.9 MG/DL (2.3-4.5); POTASSIUM 4.9 MMOL/L (3.5-5.1); SODIUM 136 MMOL/L (135-145); TOTAL CARBON DIOXIDE 24.4 MMOL/L (24-32); eGFR 53 ML/MIN
--- NOTE | 2022-01-28 18:25 | NUR ---
Patient in room ICU 2041. I have received report from Steff HERNÁNDEZ and had the opportunity to ask questions and assume patient care.
[2022-01-28] MEDS: insulin glargine (Lantus) pen - multi-dose SQ SCH (20:33)
[2022-01-28] MEDS: amLODIPine 5mg tablet OGT SCH (21:00)
[2022-01-28] MEDS: polyethylene glycol 3350 17gm powd pack OGT SCH (21:16)
[2022-01-29] VITALS (35 sets, daily range): BP systolic 86–156; BP diastolic 42–69
[2022-01-29] MEDS: clindamycin-Cleocin 900mg/D5W 50 ML IV SCH ×3 (00:05→16:07)
[2022-01-29 00:45] LABS: BASOPHILS % (AUTO) 0.1 % (0-1); EOSINOPHILS % (AUTO) 0.1 % (0-6); HEMATOCRIT 29.5 % (42.0-52.0); LYMPHOCYTES # (AUTO) 1.2 X10'3 (1.1-4.8); LYMPHOCYTES % (AUTO) 4.8 % (21-51); MEAN CORPUSCULAR VOLUME 85.2 FL (78-98); MEAN PLATELET VOLUME 8.2 FL (7.4-10.4); MONOCYTES # (AUTO) 1.2 X10'3 (0-0.9); MONOCYTES % (AUTO) 4.9 % (2-12); NEUTROPHILS # (AUTO) 22.4 X10'3 (1.8-7.7); NEUTROPHILS % (AUTO) 90.1 % (42-75); PLATELET COUNT 228 X10'3 (140-440); RED BLOOD COUNT 3.46 X10'6 (4.70-6.10); RED CELL DISTRIBUTION WIDTH 14.1 % (11.5-14.5); WHITE BLOOD COUNT 24.9 X10'3 (4.5-11.0)
[2022-01-29 00:48] LABS: ALBUMIN 1.6 G/DL (3.4-5.0); ANION GAP 6 (8-16); BLOOD UREA NITROGEN 35 MG/DL (7-18); BUN/CREATININE RATIO 25.2 (5.4-32.0); CHLORIDE 101 MMOL/L (99-107); CREATININE 1.39 MG/DL (0.60-1.10); GLUCOSE 242 MG/DL (70-104); MAGNESIUM 1.9 MG/DL (1.5-2.4); PHOSPHORUS 3.5 MG/DL (2.3-4.5); POTASSIUM 4.8 MMOL/L (3.5-5.1); SODIUM 133 MMOL/L (135-145); TOTAL CARBON DIOXIDE 25.8 MMOL/L (24-32); eGFR 51 ML/MIN
[2022-01-29] MEDS: FENTANYL-0.9 % NACL/PF 100 ML IV PRN ×4 (01:34→23:43)
[2022-01-29] MEDS: Duosol 4K/3 Ca (w/calcium) 5,000 ML HE SCH ×14 (02:07→21:49)
[2022-01-29] MEDS: hydrocortisone sod succ/PF 100mg/2ml inj. IV SCH ×3 (02:16→16:07)
[2022-01-29] MEDS: insulin regular, human U-100 3ml vial - multi-dose SQ SCH ×4 (02:16→20:41)
[2022-01-29] MEDS: propofol 1000mg/100ml bottle 100 ML IV SCH (02:23)
[2022-01-29] MEDS: dexmedetomidine/D5W 100mL 100 ML IV SCH ×7 (02:37→21:50)
[2022-01-29] MEDS: VANCOMYCIN LEVEL IV SCH (03:00)
[2022-01-29] MEDS: ipratropium/albuterol 3ml nebule NEB SCH ×6 (03:27→23:08)
[2022-01-29 03:46] LABS: ABG BASE EXCESS -1.6 mmol/L (-2.0-2.0); ABG HCO3 22.2 mmol/L (22.0-26.0); ABG OXYGEN SATURATION 97.3 % (94-97); ABG PCO2 (T) 33.2 mmHg (35.0-48.0); ABG PO2 (T) 98.6 mmHg (75.0-100.0); FCOHb 0.3 % (0.0-3.9); PATIENT TEMPERATURE 36.3; PEEP 5 cm H2O; TOTAL HEMOGLOBIN 11.2 G/dl (14.0-18.0)
--- NOTE | 2022-01-29 05:30 | NUR ---
Late Entry: PT has had high gastric residuals all shift with every check being greater than 300ml. TF remains at 50ml/hr. PT is opening his eyes spontaneously, there were just a couple of times through out shift where PT did make eye contact, at those times he did appear startled. PT is moving his Left arm freely and there is not much movement noted from the right arm. PT does move lower extremities slightly. All movements are spontaneous and PT is not following commands at this time. Drsg changed to Left leg. PT drains yellow fluid continuously out of wounds to Left leg, skin under dressing is sloughing off, pictures taken and placed in chart. Optilocks were placed in hopes to draw moisture away from the skin and then wrapped with Kerlix. PT remains on low dose Levo as BP is very labile. Bed is locked and low. Soft wrist restraint placed to left hand and is secure. Will continue to monitor.
[2022-01-29 06:07] LABS: BASOPHILS % (AUTO) 0.1 % (0-1); EOSINOPHILS # (AUTO) 0.1 X10'3 (0-0.9); EOSINOPHILS % (AUTO) 0.2 % (0-6); HEMATOCRIT 30.5 % (42.0-52.0); LYMPHOCYTES # (AUTO) 0.9 X10'3 (1.1-4.8); LYMPHOCYTES % (AUTO) 4.2 % (21-51); MEAN CORPUSCULAR HEMOGLOBIN 28.1 PG (27.0-31.0); MEAN CORPUSCULAR HGB CONC 32.8 g/dL (33.0-36.5); MEAN CORPUSCULAR VOLUME 85.5 FL (78-98); MEAN PLATELET VOLUME 8.4 FL (7.4-10.4); MONOCYTES # (AUTO) 1.2 X10'3 (0-0.9); MONOCYTES % (AUTO) 5.8 % (2-12); NEUTROPHILS % (AUTO) 89.7 % (42-75); PLATELET COUNT 211 X10'3 (140-440); RED BLOOD COUNT 3.57 X10'6 (4.70-6.10); RED CELL DISTRIBUTION WIDTH 14.4 % (11.5-14.5); WHITE BLOOD COUNT 21.1 X10'3 (4.5-11.0)
--- NOTE | 2022-01-29 06:27 | NUR ---
Problems reprioritized. Patient report given, questions answered & plan of care reviewed with Casi HERNÁNDEZ.
--- NOTE | 2022-01-29 06:30 | NUR ---
Patient in room ICU 2041. I have received report from Lavonne HERNÁNDEZ and had the opportunity to ask questions and assume patient care.
[2022-01-29 06:50] LABS: ALBUMIN 1.7 G/DL (3.4-5.0); ANION GAP 6 (8-16); BLOOD UREA NITROGEN 31 MG/DL (7-18); BUN/CREATININE RATIO 24.8 (5.4-32.0); CHLORIDE 105 MMOL/L (99-107); CREATININE 1.25 MG/DL (0.60-1.10); GLUCOSE 197 MG/DL (70-104); PHOSPHORUS 4.2 MG/DL (2.3-4.5); PREALBUMIN 14.6 MG/DL (19-36); SODIUM 137 MMOL/L (135-145); TOTAL CARBON DIOXIDE 25.8 MMOL/L (24-32); TRIGLYCERIDES 110 MG/DL (20-135); eGFR 58 ML/MIN
[2022-01-29 07:00] LABS: VANCOMYCIN,RANDOM 9.7 UG/ML
[2022-01-29 07:03] LABS: TOTAL CELLS COUNTED 100
[2022-01-29 07:04] LABS: PLATELET ESTIMATE NORMAL; POLYCHROMASIA FEW
[2022-01-29] MEDS: K and/or MAG REPLACEMENT MC SCH ×2 (08:00→19:24)
[2022-01-29] MEDS ORDERED: vancomycin/NS 1 GM ADD-VANTAGE 250 ML IV ONE (08:04)
[2022-01-29] MEDS: pantoprazole 40MG/NS 100ML BAG 100 ML IV SCH (08:33)
[2022-01-29] MEDS: atorvastatin 20mg tablet OGT SCH (08:34)
[2022-01-29] MEDS: midodrine 5mg tablet OGT SCH ×3 (08:34→16:07)
[2022-01-29] MEDS: amiodarone 200mg tablet OGT SCH ×2 (08:34→19:37)
[2022-01-29] MEDS: cefepime 2g/NS 100ml ADVANTAGE 100 ML IV SCH ×2 (08:34→19:36)
[2022-01-29] MEDS: docusate sodium 100mg/10ml UD cup OGT SCH ×2 (08:34→19:36)
[2022-01-29] MEDS: apixaban 5mg tablet OGT SCH ×2 (08:35→19:37)
[2022-01-29] MEDS: carbidoba-levodopa 25-100mg tablet OGT SCH ×2 (08:35→19:36)
[2022-01-29] MEDS: mineral oil/petrolatum ophthal oint EACHEYE SCH ×3 (08:36→23:43)
[2022-01-29] MEDS: PHENYLephrine 100 MG in NS 250ml IV soln IV SCH (08:37)
[2022-01-29] MEDS: MULTIVIT-MIN/FERROUS GLUCONATE 9 MG/15 ML LIQUID OGT SCH (10:42)
--- NOTE | 2022-01-29 11:34 | NUR ---
F/u 01/29: Pt TF remains at 50ml/hr yet to reach goal w/ GRV WNL past 5 days; current GRV 375ml this AM. Sky Cap is agreeable to post-pyloric feeds to optimize EN tolerance which will limit further postponement in nutrition delivery. Recommendations: 1. Continuous TF using Vital HP with 80 mL/hr goal rate. To provide 1920 mL total volume/day, 1920kcal, 168 g protein, and 1605 mL water 2. post-pyloric feeds to optimize EN tolerance per knit goods washer 3. IF Propofol remains off; consider advancing Vital High Protein to 87ml/hr goal 4. No additional water flush at this time in view of renal status; monitor serum Na 5. Prealbumin q Wednesday/ 6. Daily scaled weights 7. Routine bowel care 8. DM education once stable following extubation; A1c 10.1% Addendum: 01/29/22 at [address] Amended: Links added.
[2022-01-29 12:44] LABS: BASOPHILS % (AUTO) 0.1 % (0-1); EOSINOPHILS % (AUTO) 0.2 % (0-6); HEMOGLOBIN 10.2 g/dl (14.0-17.9); LYMPHOCYTES % (AUTO) 4.5 % (21-51); MEAN CORPUSCULAR HEMOGLOBIN 28.4 PG (27.0-31.0); MEAN PLATELET VOLUME 8.4 FL (7.4-10.4); MONOCYTES # (AUTO) 1.2 X10'3 (0-0.9); MONOCYTES % (AUTO) 5.4 % (2-12); NEUTROPHILS # (AUTO) 20.7 X10'3 (1.8-7.7); NEUTROPHILS % (AUTO) 89.8 % (42-75); PLATELET COUNT 218 X10'3 (140-440); RED CELL DISTRIBUTION WIDTH 14.4 % (11.5-14.5)
[2022-01-29 13:42] LABS: ALBUMIN 1.7 G/DL (3.4-5.0); ANION GAP 9 (8-16); BLOOD UREA NITROGEN 35 MG/DL (7-18); BUN/CREATININE RATIO 25.4 (5.4-32.0); CHLORIDE 102 MMOL/L (99-107); CREATININE 1.38 MG/DL (0.60-1.10); GLUCOSE 207 MG/DL (70-104); PHOSPHORUS 4.2 MG/DL (2.3-4.5); POTASSIUM 4.9 MMOL/L (3.5-5.1); SODIUM 135 MMOL/L (135-145); TOTAL CARBON DIOXIDE 23.9 MMOL/L (24-32); eGFR 52 ML/MIN
[2022-01-29 17:09] LABS: BASOPHILS % (AUTO) 0.2 % (0-1); EOSINOPHILS # (AUTO) 0.1 X10'3 (0-0.9); EOSINOPHILS % (AUTO) 0.3 % (0-6); HEMATOCRIT 29.1 % (42.0-52.0); HEMOGLOBIN 9.6 g/dl (14.0-17.9); LYMPHOCYTES % (AUTO) 4.9 % (21-51); MEAN CORPUSCULAR HEMOGLOBIN 28.7 PG (27.0-31.0); MEAN CORPUSCULAR HGB CONC 33.2 g/dL (33.0-36.5); MEAN CORPUSCULAR VOLUME 86.4 FL (78-98); MONOCYTES # (AUTO) 1.1 X10'3 (0-0.9); MONOCYTES % (AUTO) 5.5 % (2-12); NEUTROPHILS # (AUTO) 18.3 X10'3 (1.8-7.7); NEUTROPHILS % (AUTO) 89.1 % (42-75); PLATELET COUNT 218 X10'3 (140-440); RED BLOOD COUNT 3.37 X10'6 (4.70-6.10); RED CELL DISTRIBUTION WIDTH 14.3 % (11.5-14.5); WHITE BLOOD COUNT 20.5 X10'3 (4.5-11.0)
--- NOTE | 2022-01-29 17:16 | NUR ---
Patient opens eyes spontaneously. Does not track. + blink to stimulus but otherwise I do not note him blinking. Moisturizer to eyes. Grimaces with oral care. Spontaneous strong movement of left arm. Slight movement of right arm and lower extremities. Continues in atrial fib with controlled rate. Very sensitive to Levophed. Requiring low dose to keep SBP > 90. 4+ anasarca. Scant secretions from ETT. On spontaneous mode 30% FiO2. anabel well. Large residuals from OGT of dark green fluid. Decision made to try to feed the patient post pyloric. Right nares Corpak placed. KUB done for confirmation of placement. No BM this shift. Hypoactive bowel sounds. Scant UO. Continues on CRRT. Anabel well. Dressing change to left leg. Leg continuously weeping clear yellow fluid. Skin sluffing off. Dressing change done. Pt grimaced with movement of leg for dressing change but otherwise appears comfortable with Fentanyl & Precedex gtts.
[2022-01-29 17:22] LABS: ALBUMIN 1.6 G/DL (3.4-5.0); ANION GAP 7 (8-16); BLOOD UREA NITROGEN 31 MG/DL (7-18); BUN/CREATININE RATIO 24.8 (5.4-32.0); CHLORIDE 103 MMOL/L (99-107); CREATININE 1.25 MG/DL (0.60-1.10); GLUCOSE 188 MG/DL (70-104); PHOSPHORUS 4.1 MG/DL (2.3-4.5); POTASSIUM 4.9 MMOL/L (3.5-5.1); SODIUM 135 MMOL/L (135-145); eGFR 58 ML/MIN
--- NOTE | 2022-01-29 18:19 | NUR ---
Problems reprioritized. Patient report given, questions answered & plan of care reviewed with Lavonne HERNÁNDEZ.
--- NOTE | 2022-01-29 18:20 | NUR ---
Patient in room ICU 2041. I have received report from Casi HERNÁNDEZ and had the opportunity to ask questions and assume patient care.
[2022-01-29] MEDS: insulin glargine (Lantus) pen - multi-dose SQ SCH (20:42)
[2022-01-29] MEDS: amLODIPine 5mg tablet OGT SCH (20:42)
[2022-01-29] MEDS: polyethylene glycol 3350 17gm powd pack OGT SCH (20:44)
[2022-01-29] MEDS ORDERED: PHENYLephrine 100 MG in NS 250ml IV soln IV PRN (21:33)
[2022-01-29] MEDS ORDERED: vasopressin inj. 40 UNIT in normal saline 50ml IV soln 38 ML IV PRN (21:33)
[2022-01-29 23:46] LABS: BASOPHILS % (AUTO) 0.2 % (0-1); EOSINOPHILS # (AUTO) 0.1 X10'3 (0-0.9); EOSINOPHILS % (AUTO) 0.4 % (0-6); HEMATOCRIT 29.2 % (42.0-52.0); HEMOGLOBIN 9.9 g/dl (14.0-17.9); LYMPHOCYTES # (AUTO) 1.2 X10'3 (1.1-4.8); MEAN CORPUSCULAR HEMOGLOBIN 28.9 PG (27.0-31.0); MEAN CORPUSCULAR HGB CONC 33.9 g/dL (33.0-36.5); MEAN CORPUSCULAR VOLUME 85.4 FL (78-98); MEAN PLATELET VOLUME 8.2 FL (7.4-10.4); MONOCYTES # (AUTO) 1.3 X10'3 (0-0.9); MONOCYTES % (AUTO) 6.2 % (2-12); NEUTROPHILS # (AUTO) 17.8 X10'3 (1.8-7.7); NEUTROPHILS % (AUTO) 87.2 % (42-75); PLATELET COUNT 222 X10'3 (140-440); RED BLOOD COUNT 3.42 X10'6 (4.70-6.10); RED CELL DISTRIBUTION WIDTH 14.2 % (11.5-14.5); WHITE BLOOD COUNT 20.5 X10'3 (4.5-11.0)
[2022-01-29 23:58] LABS: ALBUMIN 1.6 G/DL (3.4-5.0); ANION GAP 8 (8-16); BLOOD UREA NITROGEN 32 MG/DL (7-18); BUN/CREATININE RATIO 23.9 (5.4-32.0); CHLORIDE 101 MMOL/L (99-107); CREATININE 1.34 MG/DL (0.60-1.10); GLUCOSE 232 MG/DL (70-104); MAGNESIUM 1.9 MG/DL (1.5-2.4); PHOSPHORUS 3.4 MG/DL (2.3-4.5); SODIUM 134 MMOL/L (135-145); TOTAL CARBON DIOXIDE 25.4 MMOL/L (24-32); eGFR 53 ML/MIN
[2022-01-30] VITALS (32 sets, daily range): BP systolic 96–150; BP diastolic 43–59
[2022-01-30] MEDS: hydrocortisone sod succ/PF 100mg/2ml inj. IV SCH ×3 (00:03→16:19)
[2022-01-30] MEDS: clindamycin-Cleocin 900mg/D5W 50 ML IV SCH ×3 (00:03→16:19)
[2022-01-30] MEDS: dexmedetomidine/D5W 100mL 100 ML IV SCH ×10 (00:18→23:41)
[2022-01-30] MEDS: insulin regular, human U-100 3ml vial - multi-dose SQ SCH ×4 (02:09→21:30)
[2022-01-30] MEDS: Duosol 4K/3 Ca (w/calcium) 5,000 ML HE SCH ×12 (02:22→16:31)
[2022-01-30] MEDS: VANCOMYCIN LEVEL IV SCH (02:23)
[2022-01-30] MEDS: ipratropium/albuterol 3ml nebule NEB SCH ×6 (02:56→22:49)
[2022-01-30 03:52] LABS: ABG BASE EXCESS 0.5 mmol/L (-2.0-2.0); ABG HCO3 24.9 mmol/L (22.0-26.0); ABG OXYGEN SATURATION 96.7 % (94-97); ABG PCO2 (T) 37.9 mmHg (35.0-48.0); ABG PO2 (T) 88.2 mmHg (75.0-100.0); FCOHb 0.3 % (0.0-3.9); FO2Hb 96.4 % (94-97); PATIENT TEMPERATURE 36.3; PEEP 5 cm H2O; TOTAL HEMOGLOBIN 11.1 G/dl (14.0-18.0)
[2022-01-30] MEDS: propofol 1000mg/100ml bottle 100 ML IV SCH (05:21)
--- NOTE | 2022-01-30 06:15 | NUR ---
Problems reprioritized. Patient report given, questions answered & plan of care reviewed with Jessica HERNÁNDEZ.
[2022-01-30 06:51] LABS: BASOPHILS % (AUTO) 0.1 % (0-1); EOSINOPHILS % (AUTO) 0.2 % (0-6); HEMATOCRIT 31.2 % (42.0-52.0); HEMOGLOBIN 10.1 g/dl (14.0-17.9); LYMPHOCYTES # (AUTO) 0.9 X10'3 (1.1-4.8); LYMPHOCYTES % (AUTO) 5.1 % (21-51); MEAN CORPUSCULAR HGB CONC 32.4 g/dL (33.0-36.5); MEAN CORPUSCULAR VOLUME 86.4 FL (78-98); MEAN PLATELET VOLUME 8.4 FL (7.4-10.4); MONOCYTES # (AUTO) 1.3 X10'3 (0-0.9); MONOCYTES % (AUTO) 6.9 % (2-12); NEUTROPHILS # (AUTO) 16.1 X10'3 (1.8-7.7); NEUTROPHILS % (AUTO) 87.7 % (42-75); PLATELET COUNT 194 X10'3 (140-440); RED BLOOD COUNT 3.62 X10'6 (4.70-6.10); RED CELL DISTRIBUTION WIDTH 14.5 % (11.5-14.5); WHITE BLOOD COUNT 18.4 X10'3 (4.5-11.0)
[2022-01-30] MEDS: FENTANYL-0.9 % NACL/PF 100 ML IV PRN ×3 (07:00→23:42)
[2022-01-30 07:03] LABS: ALBUMIN 1.6 G/DL (3.4-5.0); ANION GAP 9 (8-16); BLOOD UREA NITROGEN 29 MG/DL (7-18); CHLORIDE 102 MMOL/L (99-107); CREATININE 1.26 MG/DL (0.60-1.10); GLUCOSE 208 MG/DL (70-104); PHOSPHORUS 3.6 MG/DL (2.3-4.5); SODIUM 136 MMOL/L (135-145); TOTAL CARBON DIOXIDE 25.5 MMOL/L (24-32); TRIGLYCERIDES 93 MG/DL (20-135); VANCOMYCIN,RANDOM 9.8 UG/ML; eGFR 57 ML/MIN
[2022-01-30 07:12] LABS: MAGNESIUM 1.9 MG/DL (1.5-2.4)
[2022-01-30 07:15] LABS: PLATELET ESTIMATE NORMAL; TOTAL CELLS COUNTED 100
[2022-01-30] MEDS: apixaban 5mg tablet OGT SCH ×2 (07:34→21:44)
[2022-01-30] MEDS: carbidoba-levodopa 25-100mg tablet OGT SCH ×2 (07:34→21:44)
[2022-01-30] MEDS: midodrine 5mg tablet OGT SCH ×3 (07:34→17:34)
[2022-01-30] MEDS: cefepime 2g/NS 100ml ADVANTAGE 100 ML IV SCH ×2 (07:34→21:46)
[2022-01-30] MEDS: pantoprazole 40MG/NS 100ML BAG 100 ML IV SCH (07:34)
[2022-01-30] MEDS: amiodarone 200mg tablet OGT SCH ×2 (07:34→21:44)
[2022-01-30] MEDS: docusate sodium 100mg/10ml UD cup OGT SCH ×2 (07:34→21:45)
[2022-01-30] MEDS: atorvastatin 20mg tablet OGT SCH (07:35)
[2022-01-30] MEDS: mineral oil/petrolatum ophthal oint EACHEYE SCH ×2 (08:00→16:19)
[2022-01-30] MEDS: K and/or MAG REPLACEMENT MC SCH ×2 (08:00→20:00)
[2022-01-30] MEDS: MULTIVIT-MIN/FERROUS GLUCONATE 9 MG/15 ML LIQUID OGT SCH (08:00)
[2022-01-30] MEDS ORDERED: LIDOcaine 1% (10mg/ml)w/preservative inj. 20ml MDV ONE (11:11)
[2022-01-30] MEDS ORDERED: heparin 1,000unit/ml 10ml vial 10 ML ONE (11:11)
--- NOTE | 2022-01-30 11:18 | NUR ---
CVVH alarmed venous air and the machine could not be cleared. blood given back and data management analyst contacted. Angio also informed that the machine went down
--- NOTE | 2022-01-30 11:45 | NUR ---
pt to angio per protocol to place TDC
--- NOTE | 2022-01-30 11:47 | NUR ---
F/u 01/30: Pt remains intubated on CVVH tolerating TF now at goal s/p corpak placement in antrum vs duodenum per EMR. LBM 01/27 receiving routine miralax and colace. IF pt continues to tolerate EN at goal would benefit from increase to 87ml/hr since now off Propofol on CVVH. Will monitor for further nutrition intervention needs. Recommendations: 1. Continuous TF using Vital HP with 80 mL/hr goal rate. To provide 1920 mL total volume/day, 1920kcal, 168 g protein, and 1605 mL water 2. post-pyloric feeds to optimize EN tolerance per garbage truck dispatcher; corpak in antrum vs duodenum per imaging note 3. IF Propofol remains off; consider advancing Vital High Protein to 87ml/hr goal 4. No additional water flush at this time in view of renal status; monitor serum Na 5. Prealbumin q Wednesday/; Daily scaled weights 6. Routine bowel care 7. DM education once stable following extubation; A1c 10.1% Addendum: 01/30/22 at [address] Amended: Links added.
--- NOTE | 2022-01-30 13:05 | NUR ---
pt back from angio. vs stable red port on picc line is clotted off
[2022-01-30 15:04] LABS: BASOPHILS % (AUTO) 0.2 % (0-1); EOSINOPHILS # (AUTO) 0.1 X10'3 (0-0.9); EOSINOPHILS % (AUTO) 0.4 % (0-6); HEMATOCRIT 29.3 % (42.0-52.0); HEMOGLOBIN 9.8 g/dl (14.0-17.9); LYMPHOCYTES # (AUTO) 0.9 X10'3 (1.1-4.8); LYMPHOCYTES % (AUTO) 6.1 % (21-51); MEAN CORPUSCULAR HGB CONC 33.4 g/dL (33.0-36.5); MEAN CORPUSCULAR VOLUME 86.7 FL (78-98); MEAN PLATELET VOLUME 7.7 FL (7.4-10.4); MONOCYTES # (AUTO) 0.8 X10'3 (0-0.9); MONOCYTES % (AUTO) 5.7 % (2-12); NEUTROPHILS % (AUTO) 87.6 % (42-75); PLATELET COUNT 161 X10'3 (140-440); RED BLOOD COUNT 3.37 X10'6 (4.70-6.10); WHITE BLOOD COUNT 14.8 X10'3 (4.5-11.0)
[2022-01-30 15:17] LABS: ALBUMIN 1.5 G/DL (3.4-5.0); ANION GAP 7 (8-16); BLOOD UREA NITROGEN 34 MG/DL (7-18); BUN/CREATININE RATIO 23.8 (5.4-32.0); CHLORIDE 103 MMOL/L (99-107); CREATININE 1.43 MG/DL (0.60-1.10); GLUCOSE 213 MG/DL (70-104); MAGNESIUM 1.9 MG/DL (1.5-2.4); PHOSPHORUS 4.4 MG/DL (2.3-4.5); SODIUM 135 MMOL/L (135-145); TOTAL CARBON DIOXIDE 25.5 MMOL/L (24-32); eGFR 49 ML/MIN
[2022-01-30] MEDS: bicarb dialysis sol 2K+/3 Ca2+ 5,000 ML HE SCH ×3 (18:23→20:24)
[2022-01-30] MEDS: amLODIPine 5mg tablet OGT SCH (21:00)
[2022-01-30] MEDS: insulin glargine (Lantus) pen - multi-dose SQ SCH (21:32)
[2022-01-30] MEDS: polyethylene glycol 3350 17gm powd pack OGT SCH (21:45)
[2022-01-30 22:47] LABS: ALBUMIN 1.5 G/DL (3.4-5.0); ANION GAP 8 (8-16); BASOPHILS % (AUTO) 0.1 % (0-1); BLOOD UREA NITROGEN 34 MG/DL (7-18); BUN/CREATININE RATIO 23.6 (5.4-32.0); CHLORIDE 102 MMOL/L (99-107); CREATININE 1.44 MG/DL (0.60-1.10); EOSINOPHILS # (AUTO) 0.1 X10'3 (0-0.9); EOSINOPHILS % (AUTO) 0.4 % (0-6); GLUCOSE 186 MG/DL (70-104); HEMATOCRIT 28.5 % (42.0-52.0); HEMOGLOBIN 9.6 g/dl (14.0-17.9); LYMPHOCYTES % (AUTO) 6.7 % (21-51); MEAN CORPUSCULAR HGB CONC 33.6 g/dL (33.0-36.5); MEAN CORPUSCULAR VOLUME 86.1 FL (78-98); MEAN PLATELET VOLUME 8.2 FL (7.4-10.4); MONOCYTES % (AUTO) 6.2 % (2-12); NEUTROPHILS # (AUTO) 13.2 X10'3 (1.8-7.7); NEUTROPHILS % (AUTO) 86.6 % (42-75); PHOSPHORUS 4.4 MG/DL (2.3-4.5); PLATELET COUNT 170 X10'3 (140-440); POTASSIUM 5.1 MMOL/L (3.5-5.1); RED BLOOD COUNT 3.31 X10'6 (4.70-6.10); RED CELL DISTRIBUTION WIDTH 14.1 % (11.5-14.5); SODIUM 135 MMOL/L (135-145); TOTAL CARBON DIOXIDE 24.6 MMOL/L (24-32); WHITE BLOOD COUNT 15.3 X10'3 (4.5-11.0); eGFR 49 ML/MIN
[2022-01-30 22:59] LABS: MAGNESIUM 1.8 MG/DL (1.5-2.4)
[2022-01-31] VITALS (34 sets, daily range): BP systolic 93–145; BP diastolic 42–60
[2022-01-31] MEDS: bicarb dialysis sol 2K+/3 Ca2+ 5,000 ML HE SCH ×18 (00:46→21:44)
[2022-01-31] MEDS: hydrocortisone sod succ/PF 100mg/2ml inj. IV SCH ×4 (01:10→15:57)
[2022-01-31] MEDS: clindamycin-Cleocin 900mg/D5W 50 ML IV SCH ×3 (01:11→15:58)
[2022-01-31] MEDS: insulin regular, human U-100 3ml vial - multi-dose SQ SCH ×4 (02:37→19:48)
[2022-01-31] MEDS: ipratropium/albuterol 3ml nebule NEB SCH ×6 (03:19→23:36)
[2022-01-31 04:18] LABS: ABG HCO3 27.3 mmol/L (22.0-26.0); ABG PCO2 (T) 39.8 mmHg (35.0-48.0); ABG PO2 (T) 115.5 mmHg (75.0-100.0); FCOHb 0.6 % (0.0-3.9); FMetHb 0.1 % (0.0-1.5); FO2Hb 97.3 % (94-97); PATIENT TEMPERATURE 36.6; PEEP 5 cm H2O; TOTAL HEMOGLOBIN 10.4 G/dl (14.0-18.0)
[2022-01-31] MEDS: dexmedetomidine/D5W 100mL 100 ML IV SCH ×5 (04:29→17:49)
[2022-01-31 05:04] LABS: BASOPHILS % (AUTO) 0.1 % (0-1); EOSINOPHILS # (AUTO) 0.1 X10'3 (0-0.9); EOSINOPHILS % (AUTO) 0.6 % (0-6); HEMATOCRIT 29.5 % (42.0-52.0); HEMOGLOBIN 9.7 g/dl (14.0-17.9); LYMPHOCYTES # (AUTO) 0.9 X10'3 (1.1-4.8); MEAN CORPUSCULAR HEMOGLOBIN 28.5 PG (27.0-31.0); MEAN CORPUSCULAR VOLUME 86.4 FL (78-98); MEAN PLATELET VOLUME 8.3 FL (7.4-10.4); MONOCYTES % (AUTO) 6.7 % (2-12); NEUTROPHILS # (AUTO) 13.6 X10'3 (1.8-7.7); NEUTROPHILS % (AUTO) 86.6 % (42-75); PLATELET COUNT 179 X10'3 (140-440); RED BLOOD COUNT 3.42 X10'6 (4.70-6.10); RED CELL DISTRIBUTION WIDTH 14.3 % (11.5-14.5); WHITE BLOOD COUNT 15.7 X10'3 (4.5-11.0)
[2022-01-31 05:12] LABS: ALBUMIN 1.6 G/DL (3.4-5.0); ANION GAP 7 (8-16); BLOOD UREA NITROGEN 32 MG/DL (7-18); BUN/CREATININE RATIO 23.5 (5.4-32.0); CHLORIDE 102 MMOL/L (99-107); CREATININE 1.36 MG/DL (0.60-1.10); GLUCOSE 172 MG/DL (70-104); MAGNESIUM 1.9 MG/DL (1.5-2.4); PHOSPHORUS 3.9 MG/DL (2.3-4.5); POTASSIUM 4.6 MMOL/L (3.5-5.1); SODIUM 135 MMOL/L (135-145); TOTAL CARBON DIOXIDE 26.5 MMOL/L (24-32); eGFR 52 ML/MIN
[2022-01-31 05:44] LABS: ANISOCYTOSIS 1+; PLATELET ESTIMATE NORMAL; TOTAL CELLS COUNTED 100
[2022-01-31] MEDS: pantoprazole 40MG/NS 100ML BAG 100 ML IV SCH (07:16)
[2022-01-31] MEDS: cefepime 2g/NS 100ml ADVANTAGE 100 ML IV SCH ×2 (07:43→20:13)
[2022-01-31] MEDS: docusate sodium 100mg/10ml UD cup OGT SCH ×2 (07:44→20:12)
[2022-01-31] MEDS: carbidoba-levodopa 25-100mg tablet OGT SCH ×2 (07:44→20:12)
[2022-01-31] MEDS: midodrine 5mg tablet OGT SCH (07:44)
[2022-01-31] MEDS: atorvastatin 20mg tablet OGT SCH (07:44)
[2022-01-31] MEDS: amiodarone 200mg tablet OGT SCH ×2 (07:44→20:12)
[2022-01-31] MEDS: apixaban 5mg tablet OGT SCH ×2 (07:44→20:12)
[2022-01-31] MEDS: mineral oil/petrolatum ophthal oint EACHEYE SCH ×3 (07:45→15:58)
[2022-01-31] MEDS: MULTIVIT-MIN/FERROUS GLUCONATE 9 MG/15 ML LIQUID OGT SCH (07:56)
[2022-01-31] MEDS: K and/or MAG REPLACEMENT MC SCH ×2 (08:00→20:00)
[2022-01-31] MEDS: metoclopramide 5 mg/ml inj IV SCH ×2 (08:48→20:08)
[2022-01-31] MEDS: FENTANYL-0.9 % NACL/PF 100 ML IV PRN (09:27)
[2022-01-31 10:54] LABS: BASOPHILS % (AUTO) 0.3 % (0-1); EOSINOPHILS # (AUTO) 0.1 X10'3 (0-0.9); EOSINOPHILS % (AUTO) 0.7 % (0-6); HEMATOCRIT 28.7 % (42.0-52.0); HEMOGLOBIN 9.4 g/dl (14.0-17.9); LYMPHOCYTES # (AUTO) 0.8 X10'3 (1.1-4.8); LYMPHOCYTES % (AUTO) 5.9 % (21-51); MEAN CORPUSCULAR HEMOGLOBIN 28.7 PG (27.0-31.0); MEAN CORPUSCULAR HGB CONC 32.9 g/dL (33.0-36.5); MEAN CORPUSCULAR VOLUME 87.1 FL (78-98); MEAN PLATELET VOLUME 8.2 FL (7.4-10.4); MONOCYTES # (AUTO) 0.7 X10'3 (0-0.9); MONOCYTES % (AUTO) 5.3 % (2-12); NEUTROPHILS % (AUTO) 87.8 % (42-75); PLATELET COUNT 151 X10'3 (140-440); RED BLOOD COUNT 3.29 X10'6 (4.70-6.10); RED CELL DISTRIBUTION WIDTH 14.2 % (11.5-14.5); WHITE BLOOD COUNT 13.6 X10'3 (4.5-11.0)
[2022-01-31 11:05] LABS: ALBUMIN 1.6 G/DL (3.4-5.0); ANION GAP 5 (8-16); BLOOD UREA NITROGEN 31 MG/DL (7-18); BUN/CREATININE RATIO 26.3 (5.4-32.0); CHLORIDE 105 MMOL/L (99-107); CREATININE 1.18 MG/DL (0.60-1.10); GLUCOSE 214 MG/DL (70-104); MAGNESIUM 1.7 MG/DL (1.5-2.4); PHOSPHORUS 3.8 MG/DL (2.3-4.5); POTASSIUM 4.3 MMOL/L (3.5-5.1); SODIUM 136 MMOL/L (135-145); TOTAL CARBON DIOXIDE 26.4 MMOL/L (24-32); eGFR 62 ML/MIN
[2022-01-31] MEDS: midodrine tablet 2.5 MG TABLET PO SCH ×2 (11:52→15:58)
[2022-01-31 17:49] LABS: BASOPHILS % (AUTO) 0.1 % (0-1); EOSINOPHILS # (AUTO) 0.1 X10'3 (0-0.9); EOSINOPHILS % (AUTO) 0.5 % (0-6); HEMATOCRIT 28.5 % (42.0-52.0); HEMOGLOBIN 9.4 g/dl (14.0-17.9); LYMPHOCYTES # (AUTO) 0.9 X10'3 (1.1-4.8); MEAN CORPUSCULAR HEMOGLOBIN 28.5 PG (27.0-31.0); MEAN CORPUSCULAR VOLUME 86.6 FL (78-98); MEAN PLATELET VOLUME 8.2 FL (7.4-10.4); MONOCYTES # (AUTO) 0.7 X10'3 (0-0.9); MONOCYTES % (AUTO) 5.7 % (2-12); NEUTROPHILS # (AUTO) 11.1 X10'3 (1.8-7.7); NEUTROPHILS % (AUTO) 86.7 % (42-75); PLATELET COUNT 138 X10'3 (140-440); RED BLOOD COUNT 3.29 X10'6 (4.70-6.10); RED CELL DISTRIBUTION WIDTH 13.7 % (11.5-14.5); WHITE BLOOD COUNT 12.8 X10'3 (4.5-11.0)
[2022-01-31 17:58] LABS: ALBUMIN 1.6 G/DL (3.4-5.0); ANION GAP 5 (8-16); BLOOD UREA NITROGEN 31 MG/DL (7-18); BUN/CREATININE RATIO 25.6 (5.4-32.0); CHLORIDE 104 MMOL/L (99-107); CREATININE 1.21 MG/DL (0.60-1.10); GLUCOSE 226 MG/DL (70-104); MAGNESIUM 1.8 MG/DL (1.5-2.4); PHOSPHORUS 3.6 MG/DL (2.3-4.5); POTASSIUM 4.4 MMOL/L (3.5-5.1); SODIUM 137 MMOL/L (135-145); eGFR 60 ML/MIN
--- NOTE | 2022-01-31 18:10 | NUR ---
Problems reprioritized. Patient report given, questions answered & plan of care reviewed with Terry HERNÁNDEZ.
[2022-01-31] MEDS: insulin glargine (Lantus) pen - multi-dose SQ SCH (19:49)
[2022-01-31] MEDS: amLODIPine 5mg tablet OGT SCH (20:36)
[2022-01-31] MEDS: polyethylene glycol 3350 17gm powd pack OGT SCH (21:43)
[2022-01-31 23:47] LABS: BASOPHILS % (AUTO) 0.1 % (0-1); EOSINOPHILS % (AUTO) 0.3 % (0-6); HEMATOCRIT 27.4 % (42.0-52.0); HEMOGLOBIN 9.4 g/dl (14.0-17.9); LYMPHOCYTES % (AUTO) 7.2 % (21-51); MEAN CORPUSCULAR HEMOGLOBIN 29.6 PG (27.0-31.0); MEAN CORPUSCULAR HGB CONC 34.1 g/dL (33.0-36.5); MEAN CORPUSCULAR VOLUME 86.7 FL (78-98); MEAN PLATELET VOLUME 8.5 FL (7.4-10.4); MONOCYTES # (AUTO) 0.8 X10'3 (0-0.9); MONOCYTES % (AUTO) 5.9 % (2-12); NEUTROPHILS # (AUTO) 11.5 X10'3 (1.8-7.7); NEUTROPHILS % (AUTO) 86.5 % (42-75); PLATELET COUNT 153 X10'3 (140-440); RED BLOOD COUNT 3.16 X10'6 (4.70-6.10); RED CELL DISTRIBUTION WIDTH 14.2 % (11.5-14.5); WHITE BLOOD COUNT 13.3 X10'3 (4.5-11.0)
[2022-01-31 23:54] LABS: ALANINE AMINOTRANSFERASE 12 U/L (12-78); ALBUMIN 1.6 G/DL (3.4-5.0); ALBUMIN/GLOBULIN RATIO 0.3 (1.1-1.5); ALKALINE PHOSPHATASE 84 IU/L (46-116); ANION GAP 4 (8-16); ASPARTATE AMINO TRANSFERASE 19 U/L (10-37); BILIRUBIN,TOTAL 0.5 MG/DL (0.1-1.0); BLOOD UREA NITROGEN 32 MG/DL (7-18); BUN/CREATININE RATIO 26.4 (5.4-32.0); CHLORIDE 104 MMOL/L (99-107); CREATININE 1.21 MG/DL (0.60-1.10); GLUCOSE 219 MG/DL (70-104); PHOSPHORUS 3.1 MG/DL (2.3-4.5); POTASSIUM 4.1 MMOL/L (3.5-5.1); SODIUM 137 MMOL/L (135-145); TOTAL CARBON DIOXIDE 28.7 MMOL/L (24-32); TOTAL PROTEIN 6.2 G/DL (6.4-8.2); eGFR 60 ML/MIN
[2022-01-31 23:59] LABS: MAGNESIUM 1.7 MG/DL (1.5-2.4)
[2022-02-01] VITALS (36 sets, daily range): BP systolic 88–158; BP diastolic 37–61
[2022-02-01] MEDS: clindamycin-Cleocin 900mg/D5W 50 ML IV SCH ×3 (00:54→15:24)
[2022-02-01] MEDS: dexmedetomidine/D5W 100mL 100 ML IV SCH ×5 (00:54→19:46)
[2022-02-01] MEDS: mineral oil/petrolatum ophthal oint EACHEYE SCH ×4 (00:56→23:19)
[2022-02-01] MEDS: bicarb dialysis sol 2K+/3 Ca2+ 5,000 ML HE SCH ×23 (01:16→23:19)
[2022-02-01] MEDS: ipratropium/albuterol 3ml nebule NEB SCH ×6 (03:31→23:10)
[2022-02-01 04:04] LABS: ABG BASE EXCESS 4.3 mmol/L (-2.0-2.0); ABG OXYGEN SATURATION 97.1 % (94-97); ABG PCO2 (T) 38.2 mmHg (35.0-48.0); ABG PO2 (T) 92.9 mmHg (75.0-100.0); FCOHb 0.6 % (0.0-3.9); FO2Hb 96.5 % (94-97); PATIENT TEMPERATURE 36.7; PEEP 5 cm H2O; TOTAL HEMOGLOBIN 10.2 G/dl (14.0-18.0)
[2022-02-01] MEDS: FENTANYL-0.9 % NACL/PF 100 ML IV PRN ×2 (05:59→17:36)
[2022-02-01 06:52] LABS: BASOPHILS % (AUTO) 0.3 % (0-1); EOSINOPHILS # (AUTO) 0.1 X10'3 (0-0.9); EOSINOPHILS % (AUTO) 0.9 % (0-6); HEMATOCRIT 28.6 % (42.0-52.0); HEMOGLOBIN 9.5 g/dl (14.0-17.9); LYMPHOCYTES # (AUTO) 1.3 X10'3 (1.1-4.8); MEAN CORPUSCULAR HEMOGLOBIN 29.1 PG (27.0-31.0); MEAN CORPUSCULAR HGB CONC 33.4 g/dL (33.0-36.5); MEAN CORPUSCULAR VOLUME 87.1 FL (78-98); MEAN PLATELET VOLUME 8.4 FL (7.4-10.4); MONOCYTES % (AUTO) 6.8 % (2-12); NEUTROPHILS # (AUTO) 11.6 X10'3 (1.8-7.7); PLATELET COUNT 155 X10'3 (140-440); RED BLOOD COUNT 3.28 X10'6 (4.70-6.10); RED CELL DISTRIBUTION WIDTH 14.1 % (11.5-14.5)
--- NOTE | 2022-02-01 06:52 | NUR ---
CVVH down at 0630. commissioned police officer HD RN notified. Will call Dr. Castellon @ 0700. Levo. has been off since yesterday morning. Pt. agitated. Precedex increased.
--- NOTE | 2022-02-01 07:10 | NUR ---
RN called Dr. Castellon who gave orders to hold CVVH for now and start Lasix gtt. Will notify HD RN.
[2022-02-01 07:14] LABS: ALANINE AMINOTRANSFERASE 17 U/L (12-78); ALBUMIN 1.6 G/DL (3.4-5.0); ALBUMIN/GLOBULIN RATIO 0.3 (1.1-1.5); ALKALINE PHOSPHATASE 87 IU/L (46-116); ANION GAP 8 (8-16); ASPARTATE AMINO TRANSFERASE 17 U/L (10-37); BILIRUBIN,TOTAL 0.5 MG/DL (0.1-1.0); BLOOD UREA NITROGEN 29 MG/DL (7-18); BUN/CREATININE RATIO 22.8 (5.4-32.0); CALCIUM 7.9 MG/DL (8.5-10.1); CHLORIDE 101 MMOL/L (99-107); CREATININE 1.27 MG/DL (0.60-1.10); GLUCOSE 92 MG/DL (70-104); MAGNESIUM 1.6 MG/DL (1.5-2.4); PHOSPHORUS 2.6 MG/DL (2.3-4.5); POTASSIUM 3.6 MMOL/L (3.5-5.1); SODIUM 135 MMOL/L (135-145); TOTAL CARBON DIOXIDE 25.7 MMOL/L (24-32); TOTAL PROTEIN 6.4 G/DL (6.4-8.2); eGFR 57 ML/MIN
[2022-02-01] MEDS ORDERED: furosemide inj 100 MG in normal saline 100ml IV soln 90 ML IV SCH (07:15)
[2022-02-01] MEDS: pantoprazole 40MG/NS 100ML BAG 100 ML IV SCH (07:33)
[2022-02-01] MEDS: carbidoba-levodopa 25-100mg tablet OGT SCH ×2 (07:34→20:29)
[2022-02-01] MEDS: atorvastatin 20mg tablet OGT SCH (07:34)
[2022-02-01] MEDS: apixaban 5mg tablet OGT SCH ×2 (07:34→20:29)
[2022-02-01] MEDS: amiodarone 200mg tablet OGT SCH ×2 (07:34→20:29)
[2022-02-01] MEDS: midodrine tablet 2.5 MG TABLET PO SCH ×3 (07:34→15:24)
[2022-02-01] MEDS: hydrocortisone sod succ/PF 100mg/2ml inj. IV SCH ×3 (07:35→19:45)
[2022-02-01] MEDS: metoclopramide 5 mg/ml inj IV SCH ×2 (07:35→19:44)
[2022-02-01] MEDS: K and/or MAG REPLACEMENT MC SCH ×2 (07:35→19:58)
[2022-02-01] MEDS: MULTIVIT-MIN/FERROUS GLUCONATE 9 MG/15 ML LIQUID OGT SCH (07:35)
[2022-02-01] MEDS: docusate sodium 100mg/10ml UD cup OGT SCH ×2 (07:35→20:29)
[2022-02-01] MEDS ORDERED: heparin 1,000 units/ml 10ml inj HE ONE ×2 (07:55)
[2022-02-01] MEDS: insulin regular, human U-100 3ml vial - multi-dose SQ SCH ×3 (08:08→20:49)
[2022-02-01] MEDS: cefepime 2g/NS 100ml ADVANTAGE 100 ML IV SCH ×2 (08:16→19:44)
--- NOTE | 2022-02-01 08:25 | NUR ---
Levo restarted this am. RN called and notified Dr. Sam. Iron willett dc'd, CVVH to resume for now.
[2022-02-01 09:16] LABS: TOTAL CELLS COUNTED 100
[2022-02-01 09:18] LABS: PLATELET ESTIMATE NORMAL; POIKILOCYTOSIS FEW
[2022-02-01] MEDS: potassium Cl 20mEq/100mL bag 100 ML IV PRN ×4 (09:36→18:36)
--- NOTE | 2022-02-01 10:02 | NUR ---
Dr. Smith talking with pt's and sister at bedside. Awaiting HD RN to come set up CVVH.
--- NOTE | 2022-02-01 10:49 | NUR ---
CVVH being set up now.
[2022-02-01 10:59] LABS: BASOPHILS # (AUTO) 0.1 X10'3 (0-0.2); BASOPHILS % (AUTO) 0.3 % (0-1); EOSINOPHILS # (AUTO) 0.1 X10'3 (0-0.9); EOSINOPHILS % (AUTO) 0.6 % (0-6); HEMATOCRIT 27.6 % (42.0-52.0); HEMOGLOBIN 9.1 g/dl (14.0-17.9); LYMPHOCYTES # (AUTO) 0.8 X10'3 (1.1-4.8); LYMPHOCYTES % (AUTO) 4.7 % (21-51); MEAN CORPUSCULAR HEMOGLOBIN 29.1 PG (27.0-31.0); MEAN CORPUSCULAR HGB CONC 33.1 g/dL (33.0-36.5); MEAN CORPUSCULAR VOLUME 87.8 FL (78-98); MEAN PLATELET VOLUME 8.1 FL (7.4-10.4); MONOCYTES # (AUTO) 0.8 X10'3 (0-0.9); MONOCYTES % (AUTO) 4.6 % (2-12); NEUTROPHILS # (AUTO) 15.2 X10'3 (1.8-7.7); NEUTROPHILS % (AUTO) 89.8 % (42-75); PLATELET COUNT 147 X10'3 (140-440); RED BLOOD COUNT 3.14 X10'6 (4.70-6.10); RED CELL DISTRIBUTION WIDTH 14.1 % (11.5-14.5)
[2022-02-01 11:13] LABS: ALBUMIN 1.6 G/DL (3.4-5.0); ANION GAP 5 (8-16); BLOOD UREA NITROGEN 39 MG/DL (7-18); CHLORIDE 105 MMOL/L (99-107); GLUCOSE 83 MG/DL (70-104); MAGNESIUM 2.5 MG/DL (1.5-2.4); PHOSPHORUS 3.4 MG/DL (2.3-4.5); POTASSIUM 4.7 MMOL/L (3.5-5.1); SODIUM 138 MMOL/L (135-145); TOTAL CARBON DIOXIDE 27.7 MMOL/L (24-32); eGFR 47 ML/MIN
--- NOTE | 2022-02-01 12:05 | NUR ---
CVVH back up at 1130. (Off from [id number]).
[2022-02-01 17:10] LABS: ALBUMIN 1.6 G/DL (3.4-5.0); ANION GAP 4 (8-16); BLOOD UREA NITROGEN 34 MG/DL (7-18); BUN/CREATININE RATIO 25.2 (5.4-32.0); CHLORIDE 105 MMOL/L (99-107); CREATININE 1.35 MG/DL (0.60-1.10); GLUCOSE 177 MG/DL (70-104); MAGNESIUM 2.6 MG/DL (1.5-2.4); PHOSPHORUS 3.4 MG/DL (2.3-4.5); POTASSIUM 4.3 MMOL/L (3.5-5.1); SODIUM 136 MMOL/L (135-145); TOTAL CARBON DIOXIDE 27.3 MMOL/L (24-32); eGFR 53 ML/MIN
[2022-02-01 17:13] LABS: BASOPHILS % (AUTO) 0.3 % (0-1); EOSINOPHILS # (AUTO) 0.1 X10'3 (0-0.9); EOSINOPHILS % (AUTO) 0.5 % (0-6); HEMATOCRIT 26.3 % (42.0-52.0); HEMOGLOBIN 8.7 g/dl (14.0-17.9); LYMPHOCYTES # (AUTO) 0.7 X10'3 (1.1-4.8); LYMPHOCYTES % (AUTO) 5.5 % (21-51); MEAN CORPUSCULAR HEMOGLOBIN 28.9 PG (27.0-31.0); MEAN CORPUSCULAR HGB CONC 33.1 g/dL (33.0-36.5); MEAN CORPUSCULAR VOLUME 87.3 FL (78-98); MEAN PLATELET VOLUME 8.5 FL (7.4-10.4); MONOCYTES # (AUTO) 0.5 X10'3 (0-0.9); NEUTROPHILS # (AUTO) 11.5 X10'3 (1.8-7.7); NEUTROPHILS % (AUTO) 89.7 % (42-75); PLATELET COUNT 131 X10'3 (140-440); RED BLOOD COUNT 3.01 X10'6 (4.70-6.10); RED CELL DISTRIBUTION WIDTH 14.1 % (11.5-14.5); WHITE BLOOD COUNT 12.8 X10'3 (4.5-11.0)
--- NOTE | 2022-02-01 18:14 | NUR ---
Problems reprioritized. Patient report given, questions answered & plan of care reviewed with Syl HERNÁNDEZ.
--- NOTE | 2022-02-01 18:15 | NUR ---
Patient in room ICU 2041. I have received report from EDGAR Steele and had the opportunity to ask questions and assume patient care.
[2022-02-01] MEDS: amLODIPine 5mg tablet OGT SCH (20:29)
[2022-02-01] MEDS: insulin glargine (Lantus) pen - multi-dose SQ SCH (20:50)
[2022-02-01] MEDS: polyethylene glycol 3350 17gm powd pack OGT SCH (21:00)
[2022-02-01 23:13] LABS: MEAN CORPUSCULAR HEMOGLOBIN 28.5 PG (27.0-31.0); NEUTROPHILS # (AUTO) 11.3 X10'3 (1.8-7.7)
[2022-02-01 23:15] LABS: BASOPHILS % (AUTO) 0.2 % (0-1); EOSINOPHILS % (AUTO) 0.3 % (0-6); HEMATOCRIT 27.6 % (42.0-52.0); HEMOGLOBIN 9.1 g/dl (14.0-17.9); LYMPHOCYTES # (AUTO) 0.6 X10'3 (1.1-4.8); LYMPHOCYTES % (AUTO) 4.7 % (21-51); MEAN CORPUSCULAR HGB CONC 32.9 g/dL (33.0-36.5); MEAN CORPUSCULAR VOLUME 86.6 FL (78-98); MEAN PLATELET VOLUME 8.4 FL (7.4-10.4); MONOCYTES # (AUTO) 0.4 X10'3 (0-0.9); MONOCYTES % (AUTO) 3.6 % (2-12); NEUTROPHILS % (AUTO) 91.2 % (42-75); PLATELET COUNT 144 X10'3 (140-440); RED BLOOD COUNT 3.19 X10'6 (4.70-6.10); RED CELL DISTRIBUTION WIDTH 14.1 % (11.5-14.5); WHITE BLOOD COUNT 12.4 X10'3 (4.5-11.0)
[2022-02-01 23:24] LABS: ALBUMIN 1.6 G/DL (3.4-5.0); ANION GAP 8 (8-16); BLOOD UREA NITROGEN 34 MG/DL (7-18); BUN/CREATININE RATIO 25.4 (5.4-32.0); CHLORIDE 99 MMOL/L (99-107); CREATININE 1.34 MG/DL (0.60-1.10); GLUCOSE 225 MG/DL (70-104); MAGNESIUM 2.2 MG/DL (1.5-2.4); PHOSPHORUS 2.9 MG/DL (2.3-4.5); POTASSIUM 4.3 MMOL/L (3.5-5.1); SODIUM 132 MMOL/L (135-145); TOTAL CARBON DIOXIDE 24.7 MMOL/L (24-32); eGFR 53 ML/MIN
[2022-02-02] VITALS (28 sets, daily range): BP systolic 1–156; BP diastolic 39–58
--- NOTE | 2022-02-02 | NUR ---
Patient with increased agitation, pulling at restraints, hitting the bed rails, attempts to scream. Patient assessed, needs addressed. Patient education given regarding reasons for arm restraints.
[2022-02-02] MEDS: clindamycin-Cleocin 900mg/D5W 50 ML IV SCH ×3 (00:12→16:08)
[2022-02-02] MEDS: dexmedetomidine/D5W 100mL 100 ML IV SCH ×4 (01:06→19:24)
[2022-02-02] MEDS: hydrocortisone sod succ/PF 100mg/2ml inj. IV SCH ×4 (02:12→19:59)
[2022-02-02] MEDS: insulin regular, human U-100 3ml vial - multi-dose SQ SCH ×4 (02:53→20:32)
[2022-02-02] MEDS: bicarb dialysis sol 2K+/3 Ca2+ 5,000 ML HE SCH ×12 (03:12→21:51)
[2022-02-02] MEDS: ipratropium/albuterol 3ml nebule NEB SCH ×3 (03:41→11:35)
[2022-02-02 04:13] LABS: ABG BASE EXCESS 2.3 mmol/L (-2.0-2.0); ABG HCO3 25.9 mmol/L (22.0-26.0); ABG OXYGEN SATURATION 95.4 % (94-97); ABG PCO2 (T) 35.1 mmHg (35.0-48.0); ABG PO2 (T) 76.3 mmHg (75.0-100.0); FCOHb 0.3 % (0.0-3.9); FMetHb 0.2 % (0.0-1.5); FO2Hb 94.9 % (94-97); PATIENT TEMPERATURE 36.3; PEEP 5 cm H2O; TOTAL HEMOGLOBIN 9.9 G/dl (14.0-18.0)
[2022-02-02] MEDS: FENTANYL-0.9 % NACL/PF 100 ML IV PRN (04:16)
[2022-02-02 05:42] LABS: BASOPHILS % (AUTO) 0.1 % (0-1); EOSINOPHILS # (AUTO) 0.1 X10'3 (0-0.9); EOSINOPHILS % (AUTO) 0.5 % (0-6); HEMATOCRIT 27.1 % (42.0-52.0); HEMOGLOBIN 9.1 g/dl (14.0-17.9); LYMPHOCYTES # (AUTO) 0.6 X10'3 (1.1-4.8); LYMPHOCYTES % (AUTO) 5.9 % (21-51); MEAN CORPUSCULAR HEMOGLOBIN 28.9 PG (27.0-31.0); MEAN CORPUSCULAR HGB CONC 33.4 g/dL (33.0-36.5); MEAN CORPUSCULAR VOLUME 86.5 FL (78-98); MEAN PLATELET VOLUME 8.5 FL (7.4-10.4); MONOCYTES # (AUTO) 0.5 X10'3 (0-0.9); MONOCYTES % (AUTO) 5.1 % (2-12); NEUTROPHILS # (AUTO) 9.5 X10'3 (1.8-7.7); NEUTROPHILS % (AUTO) 88.4 % (42-75); PLATELET COUNT 144 X10'3 (140-440); RED BLOOD COUNT 3.13 X10'6 (4.70-6.10); RED CELL DISTRIBUTION WIDTH 14.2 % (11.5-14.5); WHITE BLOOD COUNT 10.7 X10'3 (4.5-11.0)
[2022-02-02 05:59] LABS: ALBUMIN 1.7 G/DL (3.4-5.0); ANION GAP 4 (8-16); BLOOD UREA NITROGEN 30 MG/DL (7-18); BUN/CREATININE RATIO 23.8 (5.4-32.0); CHLORIDE 102 MMOL/L (99-107); CREATININE 1.26 MG/DL (0.60-1.10); GLUCOSE 200 MG/DL (70-104); MAGNESIUM 2.1 MG/DL (1.5-2.4); PHOSPHORUS 2.9 MG/DL (2.3-4.5); POTASSIUM 3.9 MMOL/L (3.5-5.1); SODIUM 133 MMOL/L (135-145); TOTAL CARBON DIOXIDE 26.6 MMOL/L (24-32); eGFR 57 ML/MIN
--- NOTE | 2022-02-02 06:07 | NUR ---
Patient appeared to be able to sleep some in the faceter hours. When patient awoke during morning rounds he became agitated again. Mouthing words that appear to be "let me go!" Patient very agitated and is attempting to hit nursing staff, flipping off nurses. Patient educated on reasons for restraints, needing to remain calm and follow direction in order to have a chance at getting the endotracheal tube out today.
--- NOTE | 2022-02-02 06:20 | NUR ---
Problems reprioritized. Patient report given, questions answered & plan of care reviewed with EDGAR Lozano.
--- NOTE | 2022-02-02 06:55 | NUR ---
Patient in room ICU 2041. I have received report from Syl HERNÁNDEZ and had the opportunity to ask questions and assume patient care.
[2022-02-02] MEDS: pantoprazole 40MG/NS 100ML BAG 100 ML IV SCH (07:50)
[2022-02-02] MEDS: cefepime 2g/NS 100ml ADVANTAGE 100 ML IV SCH (07:50)
[2022-02-02] MEDS: docusate sodium 100mg/10ml UD cup OGT SCH ×2 (07:51→18:28)
[2022-02-02] MEDS: metoclopramide 5 mg/ml inj IV SCH ×2 (07:51→19:59)
[2022-02-02] MEDS: midodrine tablet 2.5 MG TABLET PO SCH ×2 (07:52→12:30)
[2022-02-02] MEDS: atorvastatin 20mg tablet OGT SCH (07:52)
[2022-02-02] MEDS: apixaban 5mg tablet OGT SCH ×2 (07:52→19:59)
[2022-02-02] MEDS: carbidoba-levodopa 25-100mg tablet OGT SCH ×2 (07:52→19:59)
[2022-02-02] MEDS: amiodarone 200mg tablet OGT SCH ×2 (07:52→19:59)
[2022-02-02] MEDS: mineral oil/petrolatum ophthal oint EACHEYE SCH (07:53)
[2022-02-02] MEDS: K and/or MAG REPLACEMENT MC SCH ×2 (08:40→20:00)
[2022-02-02] MEDS: MULTIVIT-MIN/FERROUS GLUCONATE 9 MG/15 ML LIQUID OGT SCH (08:44)
--- NOTE | 2022-02-02 10:20 | NUR ---
CVVH machine states air in line trouble shot per on board steps, unable to keep running, informed instructional assistant HD RN that i will be returning blood and that it will need to be re set up. TDC hep locked with 1ml heparin per TDC line indication
[2022-02-02] MEDS ORDERED: heparin 1,000 units/ml 10ml inj HE ONE ×2 (10:35)
[2022-02-02] MEDS ORDERED: tPA-cathflo 2 MG/2 ml IV flush IVF ONE (11:10)
--- NOTE | 2022-02-02 11:25 | NUR ---
F/u 02/02: Pt remains intubated though is planning to extubate today per MD at rounds. Pt also continues on CVVH. If pt extubated and continues on TF, will place updated recs based on new needs. Recommend BSS prior to advancing diet. LBM 4/3 receiving routine bowel care. Will continue to monitor. Recommendations: 1. Continuous TF using Vital HP with 80 mL/hr goal rate. To provide 1920 mL total volume/day, 1920kcal, 168 g protein, and 1605 mL water 2. post-pyloric feeds to optimize EN tolerance per media assistant; corpak in antrum vs duodenum per imaging note 3. IF pt extubated, consider advancing Vital High Protein to 87ml/hr goal 4. No additional water flush at this time in view of renal status; monitor serum Na 5. Prealbumin q Wednesday/; Daily scaled weights 6. Routine bowel care 7. BSS prior to diet advancement 8. DM education once stable following extubation; A1c 10.1% Addendum: 02/02/22 at [address] Amended: Links added.
[2022-02-02 11:29] LABS: BASOPHILS % (AUTO) 0.1 % (0-1); EOSINOPHILS % (AUTO) 0.3 % (0-6); HEMATOCRIT 25.1 % (42.0-52.0); HEMOGLOBIN 8.5 g/dl (14.0-17.9); LYMPHOCYTES # (AUTO) 0.5 X10'3 (1.1-4.8); MEAN CORPUSCULAR HEMOGLOBIN 29.6 PG (27.0-31.0); MEAN CORPUSCULAR HGB CONC 33.8 g/dL (33.0-36.5); MEAN CORPUSCULAR VOLUME 87.4 FL (78-98); MEAN PLATELET VOLUME 8.1 FL (7.4-10.4); MONOCYTES # (AUTO) 0.4 X10'3 (0-0.9); NEUTROPHILS # (AUTO) 7.6 X10'3 (1.8-7.7); NEUTROPHILS % (AUTO) 88.6 % (42-75); PLATELET COUNT 114 X10'3 (140-440); RED BLOOD COUNT 2.87 X10'6 (4.70-6.10); RED CELL DISTRIBUTION WIDTH 14.1 % (11.5-14.5); WHITE BLOOD COUNT 8.6 X10'3 (4.5-11.0)
[2022-02-02 11:40] LABS: ALBUMIN 1.5 G/DL (3.4-5.0); BLOOD UREA NITROGEN 30 MG/DL (7-18); BUN/CREATININE RATIO 22.6 (5.4-32.0); CHLORIDE 101 MMOL/L (99-107); CREATININE 1.33 MG/DL (0.60-1.10); GLUCOSE 240 MG/DL (70-104); PHOSPHORUS 3.6 MG/DL (2.3-4.5); POTASSIUM 4.1 MMOL/L (3.5-5.1); SODIUM 134 MMOL/L (135-145); eGFR 54 ML/MIN
[2022-02-02 11:46] LABS: ANION GAP 7 (8-16); TOTAL CARBON DIOXIDE 25.8 MMOL/L (24-32)
[2022-02-02 11:49] LABS: ABG HCO3 27.2 mmol/L (22.0-26.0); ABG OXYGEN SATURATION 96.1 % (94-97); ABG PO2 (T) 83.5 mmHg (75.0-100.0); FCOHb 0.3 % (0.0-3.9); FMetHb 0.4 % (0.0-1.5); FO2Hb 95.4 % (94-97); PATIENT TEMPERATURE 36.5; PEEP 5 cm H2O; TIDAL VOLUME 551 mL; TOTAL HEMOGLOBIN 9.7 G/dl (14.0-18.0)
--- NOTE | 2022-02-02 12:57 | NUR ---
CVV back up and running
[2022-02-02 13:14] LABS: PREALBUMIN 19.2 MG/DL (19-36)
--- NOTE | 2022-02-02 15:50 | NUR ---
Dr Perera by to round on patient, changed midodrine order to 10mg PRN for systolic blood pressure lower than 110
[2022-02-02 16:59] LABS: BASOPHILS # (AUTO) 0.1 X10'3 (0-0.2); BASOPHILS % (AUTO) 0.7 % (0-1); EOSINOPHILS % (AUTO) 0.1 % (0-6); HEMATOCRIT 26.9 % (42.0-52.0); HEMOGLOBIN 8.9 g/dl (14.0-17.9); LYMPHOCYTES # (AUTO) 0.6 X10'3 (1.1-4.8); LYMPHOCYTES % (AUTO) 5.2 % (21-51); MEAN CORPUSCULAR HEMOGLOBIN 28.6 PG (27.0-31.0); MEAN CORPUSCULAR HGB CONC 33.3 g/dL (33.0-36.5); MEAN CORPUSCULAR VOLUME 85.9 FL (78-98); MEAN PLATELET VOLUME 8.5 FL (7.4-10.4); MONOCYTES # (AUTO) 0.5 X10'3 (0-0.9); MONOCYTES % (AUTO) 4.9 % (2-12); NEUTROPHILS # (AUTO) 9.8 X10'3 (1.8-7.7); NEUTROPHILS % (AUTO) 89.1 % (42-75); PLATELET COUNT 156 X10'3 (140-440); RED BLOOD COUNT 3.13 X10'6 (4.70-6.10); RED CELL DISTRIBUTION WIDTH 13.8 % (11.5-14.5)
[2022-02-02 17:10] LABS: ALBUMIN 1.7 G/DL (3.4-5.0); ANION GAP 6 (8-16); BLOOD UREA NITROGEN 31 MG/DL (7-18); BUN/CREATININE RATIO 22.6 (5.4-32.0); CHLORIDE 101 MMOL/L (99-107); CREATININE 1.37 MG/DL (0.60-1.10); GLUCOSE 207 MG/DL (70-104); MAGNESIUM 2.1 MG/DL (1.5-2.4); PHOSPHORUS 2.8 MG/DL (2.3-4.5); POTASSIUM 3.8 MMOL/L (3.5-5.1); SODIUM 134 MMOL/L (135-145); TOTAL CARBON DIOXIDE 26.7 MMOL/L (24-32); eGFR 52 ML/MIN
--- NOTE | 2022-02-02 18:11 | NUR ---
Informed Dr. De La Garza about patients wet cough and sounding course in the upper lobes, he stated to order albuterol
--- NOTE | 2022-02-02 18:12 | NUR ---
Problems reprioritized. Patient report given, questions answered & plan of care reviewed with Syl HERNÁNDEZ.
--- NOTE | 2022-02-02 18:16 | NUR ---
Patient in room ICU 2041. I have received report from EDGAR Lozano and had the opportunity to ask questions and assume patient care.
--- NOTE | 2022-02-02 18:30 | NUR ---
Patient is awake in bed with 2 lpm oxygen via nasal cannula. Patient is confused and requires re orientation to place and time. Patient is able to state why he is in the hospital and is oriented to self. Patient denies any pain at this time. patient is able to move all extremities.
--- NOTE | 2022-02-02 19:00 | NUR ---
CVVH continues to alarm with air in arterial line alarm. All steps followed on machine instructions. Unable to clear alarm. director of archives and additional staff certified nurse midwife at bedside to assist. CVVH help line called. steps followed from tech to clear alarm. therapy resumed.
[2022-02-02] MEDS: morphine 2 MG/ML inj. syringe IV PRN (19:14)
--- NOTE | 2022-02-02 19:25 | NUR ---
CVVH alarming again. Patient in mild respiratory distress. Audible rales, moist wet non productive cough. CVVH help line called to assist with re setting the machine. Therapy able to continue.
--- NOTE | 2022-02-02 19:30 | NUR ---
Phone call to Dr. Lua. Patient with audible rales, decreased oxygen saturation to 90% oxygen increased to 3 lpm via nasal cannula. Advised that patient is on CVVH that is not running well because of continued coughing. Order for BiPAP 12/6 40% FiO2.
--- NOTE | 2022-02-02 19:44 | NUR ---
RT at bedside to start Bi PAP. Patient tolerating mask well.
[2022-02-02] MEDS: polyethylene glycol 3350 17gm powd pack OGT SCH (20:26)
[2022-02-02] MEDS: insulin glargine (Lantus) pen - multi-dose SQ SCH (20:33)
[2022-02-02] MEDS: amLODIPine 5mg tablet OGT SCH (21:00)
--- NOTE | 2022-02-02 22:40 | NUR ---
2230 patient is agitated, and attempting to pull at lines. Patient had verbalized to be earlier in the shift that " I am tired, I did not sleep all day." Dr. Lua called for suggestions for this patient. Advised MD that patient is on Precedex drip and that it is being titrated as tolerated by patients blood pressure and heart rate. Order for Seroquel 50 mg PO HS. When putting in the order for the medication an interaction was flagged with Reglan. Pharmacist was called and was notified of possible interaction with the two medications causing "parkinson's like syndrome" per pharmacist. PER OKAY TO GIVE SEROQUEL ORDERED.
[2022-02-02] MEDS: QUEtiapine 25mg tablet PO SCH (22:47)
[2022-02-02] MEDS: midodrine 5mg tablet PO PRN (23:13)
[2022-02-02 23:47] LABS: BASOPHILS % (AUTO) 0.1 % (0-1); EOSINOPHILS % (AUTO) 0.3 % (0-6); HEMOGLOBIN 8.2 g/dl (14.0-17.9); LYMPHOCYTES # (AUTO) 0.5 X10'3 (1.1-4.8); LYMPHOCYTES % (AUTO) 3.8 % (21-51); MEAN CORPUSCULAR HEMOGLOBIN 28.3 PG (27.0-31.0); MEAN CORPUSCULAR HGB CONC 32.8 g/dL (33.0-36.5); MEAN CORPUSCULAR VOLUME 86.3 FL (78-98); MEAN PLATELET VOLUME 8.3 FL (7.4-10.4); MONOCYTES # (AUTO) 0.6 X10'3 (0-0.9); MONOCYTES % (AUTO) 4.6 % (2-12); NEUTROPHILS # (AUTO) 12.7 X10'3 (1.8-7.7); NEUTROPHILS % (AUTO) 91.2 % (42-75); PLATELET COUNT 136 X10'3 (140-440); RED BLOOD COUNT 2.89 X10'6 (4.70-6.10); RED CELL DISTRIBUTION WIDTH 14.3 % (11.5-14.5); WHITE BLOOD COUNT 13.9 X10'3 (4.5-11.0)
[2022-02-03] VITALS (24 sets, daily range): BP systolic 100–162; BP diastolic 35–52
[2022-02-03] LABS: ALBUMIN 1.6 G/DL (3.4-5.0); ANION GAP 6 (8-16); BLOOD UREA NITROGEN 31 MG/DL (7-18); CHLORIDE 102 MMOL/L (99-107); CREATININE 1.35 MG/DL (0.60-1.10); GLUCOSE 123 MG/DL (70-104); MAGNESIUM 1.8 MG/DL (1.5-2.4); PHOSPHORUS 2.8 MG/DL (2.3-4.5); POTASSIUM 3.6 MMOL/L (3.5-5.1); SODIUM 134 MMOL/L (135-145); TOTAL CARBON DIOXIDE 26.2 MMOL/L (24-32); eGFR 53 ML/MIN
[2022-02-03] MEDS: dexmedetomidine/D5W 100mL 100 ML IV SCH ×2 (00:19→04:52)
[2022-02-03] MEDS: clindamycin-Cleocin 900mg/D5W 50 ML IV SCH ×3 (00:33→15:54)
[2022-02-03] MEDS: potassium Cl 20mEq/100mL bag 100 ML IV PRN ×2 (01:14→02:18)
[2022-02-03] MEDS: bicarb dialysis sol 2K+/3 Ca2+ 5,000 ML HE SCH ×13 (01:52→13:48)
[2022-02-03] MEDS: insulin regular, human U-100 3ml vial - multi-dose SQ SCH ×4 (02:13→21:37)
[2022-02-03] MEDS: hydrocortisone sod succ/PF 100mg/2ml inj. IV SCH ×4 (02:14→20:59)
--- NOTE | 2022-02-03 05:00 | NUR ---
Rounds with Dr. Golden. Type and Screen ordered with 0500 labs.
--- NOTE | 2022-02-03 05:47 | NUR ---
END of shift note: Patient continued to be confused and agitated throughout the night, patient states " they are making me sick" "Did you get them?" Patient was unable to state his name. Patient did appear to be able to rest or a few hours from about [id number] with a decrease in his blood pressure and pulse rate while asleep. Patient confused this morning, but is able to once again state his full name and knows he is in the hospital. Patient is still attempting to reach for lines and so remains in restraints. Education provided to patient on restraints.
[2022-02-03 05:58] LABS: BASOPHILS % (AUTO) 0.1 % (0-1); EOSINOPHILS % (AUTO) 0.2 % (0-6); HEMATOCRIT 25.2 % (42.0-52.0); HEMOGLOBIN 8.4 g/dl (14.0-17.9); LYMPHOCYTES # (AUTO) 0.7 X10'3 (1.1-4.8); LYMPHOCYTES % (AUTO) 5.3 % (21-51); MEAN CORPUSCULAR HEMOGLOBIN 28.6 PG (27.0-31.0); MEAN CORPUSCULAR HGB CONC 33.1 g/dL (33.0-36.5); MEAN CORPUSCULAR VOLUME 86.5 FL (78-98); MEAN PLATELET VOLUME 8.7 FL (7.4-10.4); MONOCYTES # (AUTO) 0.7 X10'3 (0-0.9); NEUTROPHILS # (AUTO) 11.7 X10'3 (1.8-7.7); NEUTROPHILS % (AUTO) 89.4 % (42-75); PLATELET COUNT 139 X10'3 (140-440); RED BLOOD COUNT 2.92 X10'6 (4.70-6.10); RED CELL DISTRIBUTION WIDTH 14.2 % (11.5-14.5); WHITE BLOOD COUNT 13.1 X10'3 (4.5-11.0)
--- NOTE | 2022-02-03 06:26 | NUR ---
Problems reprioritized. Patient report given, questions answered & plan of care reviewed with EDGAR Lozano.
--- NOTE | 2022-02-03 06:37 | NUR ---
Patient in room ICU 2041. I have received report from Syl HERNÁNDEZ and had the opportunity to ask questions and assume patient care.
[2022-02-03 06:45] LABS: ALBUMIN 1.7 G/DL (3.4-5.0); ANION GAP 9 (8-16); BLOOD UREA NITROGEN 29 MG/DL (7-18); BUN/CREATININE RATIO 23.4 (5.4-32.0); CHLORIDE 102 MMOL/L (99-107); CREATININE 1.24 MG/DL (0.60-1.10); GLUCOSE 111 MG/DL (70-104); MAGNESIUM 1.9 MG/DL (1.5-2.4); PHOSPHORUS 2.9 MG/DL (2.3-4.5); SODIUM 136 MMOL/L (135-145); TOTAL CARBON DIOXIDE 25.5 MMOL/L (24-32); eGFR 58 ML/MIN
[2022-02-03] MEDS: metoclopramide 5 mg/ml inj IV SCH ×2 (07:35→21:00)
[2022-02-03] MEDS: docusate sodium 100mg/10ml UD cup OGT SCH ×2 (07:35→20:00)
[2022-02-03] MEDS: apixaban 5mg tablet OGT SCH ×2 (07:35→20:59)
[2022-02-03] MEDS: atorvastatin 20mg tablet OGT SCH (07:35)
[2022-02-03] MEDS: amiodarone 200mg tablet OGT SCH ×2 (07:35→20:58)
[2022-02-03] MEDS: carbidoba-levodopa 25-100mg tablet OGT SCH ×2 (07:35→20:58)
[2022-02-03] MEDS: midodrine 5mg tablet PO PRN (07:35)
[2022-02-03] MEDS: MULTIVIT-MIN/FERROUS GLUCONATE 9 MG/15 ML LIQUID OGT SCH (07:35)
[2022-02-03] MEDS: pantoprazole 40MG/NS 100ML BAG 100 ML IV SCH (07:36)
[2022-02-03] MEDS: K and/or MAG REPLACEMENT MC SCH ×2 (08:00→20:00)
[2022-02-03 10:50] LABS: BASOPHILS % (AUTO) 0.1 % (0-1); EOSINOPHILS % (AUTO) 0.2 % (0-6); HEMATOCRIT 26.2 % (42.0-52.0); HEMOGLOBIN 8.6 g/dl (14.0-17.9); LYMPHOCYTES # (AUTO) 0.7 X10'3 (1.1-4.8); MEAN CORPUSCULAR HEMOGLOBIN 28.4 PG (27.0-31.0); MEAN CORPUSCULAR HGB CONC 32.6 g/dL (33.0-36.5); MEAN PLATELET VOLUME 8.4 FL (7.4-10.4); MONOCYTES # (AUTO) 0.7 X10'3 (0-0.9); MONOCYTES % (AUTO) 5.1 % (2-12); NEUTROPHILS # (AUTO) 12.5 X10'3 (1.8-7.7); NEUTROPHILS % (AUTO) 89.6 % (42-75); PLATELET COUNT 152 X10'3 (140-440); RED BLOOD COUNT 3.01 X10'6 (4.70-6.10); RED CELL DISTRIBUTION WIDTH 13.9 % (11.5-14.5)
[2022-02-03 11:03] LABS: ALBUMIN 1.8 G/DL (3.4-5.0); ANION GAP 8 (8-16); BLOOD UREA NITROGEN 30 MG/DL (7-18); BUN/CREATININE RATIO 24.4 (5.4-32.0); CHLORIDE 102 MMOL/L (99-107); CREATININE 1.23 MG/DL (0.60-1.10); GLUCOSE 160 MG/DL (70-104); MAGNESIUM 1.7 MG/DL (1.5-2.4); PHOSPHORUS 2.8 MG/DL (2.3-4.5); POTASSIUM 3.8 MMOL/L (3.5-5.1); SODIUM 135 MMOL/L (135-145); TOTAL CARBON DIOXIDE 25.3 MMOL/L (24-32); eGFR 59 ML/MIN
--- NOTE | 2022-02-03 12:07 | NUR ---
F/u 02/03: Pt extubated yesterday w/ corpak in place continuing to receiving and tolerate TF at goal per EMR. Pt remains on CVVH w/ hopes to transition to HD per blending machine feeder at rounds. Pending RN CHARGE BSS w/ corpak to remain in place until adequate PO assured per MD. LBM 02/02 receiving routine colace and miralax. Will monitor for PO diet advancement and EN adjustment once on HD. Recommendations: 1. Continuous TF using Vital HP with 80 mL/hr goal rate. To provide 1920 mL total volume/day, 1920kcal, 168 g protein, and 1605 mL water 2. IF pt transition from CVVH to HD and sepsis resolves, consider EN change to Nepro 1.8 at 55ml/hr 3. No additional water flush at this time in view of renal status; monitor serum Na 4. Prealbumin q Wednesday/; Daily scaled weights 5. Routine bowel care 6. advance diet as medically indicated to carb controlled per RN CHARGE/MD recs; consider renal restriction pending PO trends 7. DM education once appropriate following extubation; A1c 10.1% Addendum: 02/03/22 at [address] Amended: Links added.
[2022-02-03] MEDS ORDERED: heparin 1,000 units/ml 10ml inj HE ONE ×2 (13:20)
--- NOTE | 2022-02-03 18:14 | NUR ---
Problems reprioritized. Patient report given, questions answered & plan of care reviewed with Syl HERNÁNDEZ.
--- NOTE | 2022-02-03 18:15 | NUR ---
Patient in room ICU 2041. I have received report from EDGAR Lozano and had the opportunity to ask questions and assume patient care. Patient is able to answer questions to person, place, year and some events. Patient is able to remember RN and some events of the previous nights. Sitter at bedside.
[2022-02-03] MEDS: QUEtiapine 25mg tablet PO SCH (20:58)
[2022-02-03] MEDS: amLODIPine 5mg tablet OGT SCH (20:59)
[2022-02-03] MEDS: polyethylene glycol 3350 17gm powd pack OGT SCH (21:00)
[2022-02-03] MEDS: insulin glargine (Lantus) pen - multi-dose SQ SCH (21:39)
[2022-02-03] MEDS ORDERED: diphenhydrAMINE 50 mg/ml inj IV ONE (22:05)
[2022-02-04] VITALS (21 sets, daily range): BP systolic 91–141; BP diastolic 39–49
--- NOTE | 2022-02-04 | NUR ---
Patient appears to be sleeping soundly.
[2022-02-04] MEDS: clindamycin-Cleocin 900mg/D5W 50 ML IV SCH ×3 (00:08→16:06)
--- NOTE | 2022-02-04 02:00 | NUR ---
Patient awake, moving arms towards lines and face, not attempting to grab. Follows commands to put his arm down. Patient re oriented to place and events.
[2022-02-04] MEDS: insulin regular, human U-100 3ml vial - multi-dose SQ SCH (02:41)
[2022-02-04 03:03] LABS: BASOPHILS % (AUTO) 0.1 % (0-1); EOSINOPHILS % (AUTO) 0 % (0-6); HEMOGLOBIN 7.6 g/dl (14.0-17.9); LYMPHOCYTES # (AUTO) 0.8 X10'3 (1.1-4.8); LYMPHOCYTES % (AUTO) 6.4 % (21-51); MEAN CORPUSCULAR HEMOGLOBIN 28.8 PG (27.0-31.0); MEAN CORPUSCULAR HGB CONC 32.8 g/dL (33.0-36.5); MEAN CORPUSCULAR VOLUME 87.8 FL (78-98); MEAN PLATELET VOLUME 8.7 FL (7.4-10.4); MONOCYTES # (AUTO) 0.8 X10'3 (0-0.9); MONOCYTES % (AUTO) 6.6 % (2-12); NEUTROPHILS # (AUTO) 11.1 X10'3 (1.8-7.7); NEUTROPHILS % (AUTO) 86.9 % (42-75); PLATELET COUNT 153 X10'3 (140-440); RED BLOOD COUNT 2.62 X10'6 (4.70-6.10); RED CELL DISTRIBUTION WIDTH 13.9 % (11.5-14.5); WHITE BLOOD COUNT 12.8 X10'3 (4.5-11.0)
[2022-02-04 03:25] LABS: ALANINE AMINOTRANSFERASE 7 U/L (12-78); ALBUMIN 1.7 G/DL (3.4-5.0); ALBUMIN/GLOBULIN RATIO 0.4 (1.1-1.5); ALKALINE PHOSPHATASE 67 IU/L (46-116); ANION GAP 7 (8-16); ASPARTATE AMINO TRANSFERASE 13 U/L (10-37); BILIRUBIN,TOTAL 0.5 MG/DL (0.1-1.0); BLOOD UREA NITROGEN 54 MG/DL (7-18); BUN/CREATININE RATIO 22.9 (5.4-32.0); CALCIUM 7.8 MG/DL (8.5-10.1); CHLORIDE 100 MMOL/L (99-107); CREATININE 2.36 MG/DL (0.60-1.10); GLUCOSE 207 MG/DL (70-104); POTASSIUM 3.8 MMOL/L (3.5-5.1); SODIUM 133 MMOL/L (135-145); TOTAL CARBON DIOXIDE 26.2 MMOL/L (24-32); eGFR 28 ML/MIN
[2022-02-04] MEDS: midodrine 5mg tablet PO PRN (04:47)
--- NOTE | 2022-02-04 06:17 | NUR ---
Problems reprioritized. Patient report given, questions answered & plan of care reviewed with Mark. HERNÁNDEZ.
--- NOTE | 2022-02-04 07:11 | NUR ---
Patient in room ICU 2041. I have received report from Lavonne HERNÁNDEZ and had the opportunity to ask questions and assume patient care.
[2022-02-04] MEDS: apixaban 5mg tablet OGT SCH ×2 (07:31→19:55)
[2022-02-04] MEDS: atorvastatin 20mg tablet OGT SCH (07:31)
[2022-02-04] MEDS: carbidoba-levodopa 25-100mg tablet OGT SCH ×2 (07:31→19:55)
[2022-02-04] MEDS: K and/or MAG REPLACEMENT MC SCH ×2 (07:33→20:00)
[2022-02-04] MEDS: pantoprazole 40MG/NS 100ML BAG 100 ML IV SCH (07:33)
[2022-02-04] MEDS: metoclopramide 5 mg/ml inj IV SCH ×2 (07:33→19:55)
[2022-02-04] MEDS: amiodarone 200mg tablet OGT SCH ×2 (07:39→19:55)
[2022-02-04] MEDS: hydrocortisone sod succ/PF 100mg/2ml inj. IV SCH ×2 (07:39→19:55)
--- NOTE | 2022-02-04 07:52 | NUR ---
to see Dr. Linares to see pt. Discussed need for CT and he said to wait longer as he is clearing. Reported that noc shift said he slept well until about 0100 this am. RT giving percussion tx to pt. Swallow study completed by Earnest. Pt to remain NPO but he is improving. Weak cough and rales improve with cough. Discussed NT suction with RT. She states that noc shift got fair amt up when NT suctioned.
[2022-02-04] MEDS: MULTIVIT-MIN/FERROUS GLUCONATE 9 MG/15 ML LIQUID OGT SCH (08:00)
[2022-02-04] MEDS: docusate sodium 100mg/10ml UD cup OGT SCH ×2 (08:00→19:56)
[2022-02-04] MEDS ORDERED: EPOETIN ALFA-EPBX 20,000 UNIT/ML 1 ML MDV IV ONE (09:50)
[2022-02-04] MEDS ORDERED: heparin 1,000 units/ml 10ml inj HE ONE ×2 (09:55)
--- NOTE | 2022-02-04 13:51 | NUR ---
Shift note: to visit while pt on HD. Updated her on his condition and possible transfer form ICU tomorrow to floor provided there is a room or if he is able, he may to go to [facility]. Pt tolerated HD well. BP was up from pre HD as noted. Approx 1 L removed - refer to HD notes for that information. Wound care to see but will wait until after HD as they need to turn pt. Cough appears slightly stronger.
--- NOTE | 2022-02-04 18:31 | NUR ---
Shift end Pt left leg dressing was changed by english adjunct facultyAshleigh. We turned the pt and cleaned a small BM smear. Pt tolerated turning well, coughed well with turning. Positioned to comfort post dressing change. Problems reprioritized. Patient report given, questions answered & plan of care reviewed with Scottie HERNÁNDEZ.
[2022-02-04] MEDS: QUEtiapine 25mg tablet PO SCH (21:06)
[2022-02-04] MEDS: amLODIPine 5mg tablet OGT SCH (21:06)
[2022-02-04] MEDS: polyethylene glycol 3350 17gm powd pack OGT SCH (21:07)
[2022-02-04] MEDS: insulin glargine (Lantus) pen - multi-dose SQ SCH (21:26)
[2022-02-05] VITALS (21 sets, daily range): BP systolic 94–145; BP diastolic 41–61
[2022-02-05] MEDS: clindamycin-Cleocin 900mg/D5W 50 ML IV SCH ×2 (00:09→08:14)
[2022-02-05 02:34] LABS: BASOPHILS % (AUTO) 0.4 % (0-1); EOSINOPHILS % (AUTO) 0 % (0-6); HEMATOCRIT 22.8 % (42.0-52.0); HEMOGLOBIN 7.6 g/dl (14.0-17.9); LYMPHOCYTES # (AUTO) 0.7 X10'3 (1.1-4.8); LYMPHOCYTES % (AUTO) 6.2 % (21-51); MEAN CORPUSCULAR HGB CONC 33.2 g/dL (33.0-36.5); MEAN CORPUSCULAR VOLUME 87.4 FL (78-98); MEAN PLATELET VOLUME 8.8 FL (7.4-10.4); MONOCYTES # (AUTO) 0.7 X10'3 (0-0.9); MONOCYTES % (AUTO) 5.7 % (2-12); NEUTROPHILS # (AUTO) 10.2 X10'3 (1.8-7.7); NEUTROPHILS % (AUTO) 87.7 % (42-75); PLATELET COUNT 157 X10'3 (140-440); RED BLOOD COUNT 2.61 X10'6 (4.70-6.10); RED CELL DISTRIBUTION WIDTH 14.1 % (11.5-14.5); WHITE BLOOD COUNT 11.6 X10'3 (4.5-11.0)
[2022-02-05 02:50] LABS: ALANINE AMINOTRANSFERASE 8 U/L (12-78); ALBUMIN 1.7 G/DL (3.4-5.0); ALBUMIN/GLOBULIN RATIO 0.4 (1.1-1.5); ALKALINE PHOSPHATASE 70 IU/L (46-116); ANION GAP 10 (8-16); ASPARTATE AMINO TRANSFERASE 15 U/L (10-37); BILIRUBIN,TOTAL 0.5 MG/DL (0.1-1.0); BLOOD UREA NITROGEN 52 MG/DL (7-18); BUN/CREATININE RATIO 18.6 (5.4-32.0); CALCIUM 7.4 MG/DL (8.5-10.1); CHLORIDE 99 MMOL/L (99-107); CREATININE 2.79 MG/DL (0.60-1.10); GLUCOSE 314 MG/DL (70-104); PREALBUMIN 22.1 MG/DL (19-36); SODIUM 133 MMOL/L (135-145); TOTAL PROTEIN 6.1 G/DL (6.4-8.2); TRIGLYCERIDES 46 MG/DL (20-135); eGFR 23 ML/MIN
--- NOTE | 2022-02-05 05:30 | NUR ---
Plan of care maintained overnight. Pt more awake at beginning of shift, became more confused as the night went on, follows commands. Oriented to person and place. Delirium care provided. VSS overnight.
[2022-02-05] MEDS: insulin regular, human U-100 3ml vial - multi-dose SQ SCH ×3 (07:54→21:07)
[2022-02-05] MEDS: K and/or MAG REPLACEMENT MC SCH ×2 (08:00→20:00)
[2022-02-05] MEDS: docusate sodium 100mg/10ml UD cup OGT SCH ×2 (08:13→20:39)
[2022-02-05] MEDS: metoclopramide 5 mg/ml inj IV SCH ×2 (08:13→20:39)
[2022-02-05] MEDS: carbidoba-levodopa 25-100mg tablet OGT SCH ×2 (08:13→20:40)
[2022-02-05] MEDS: amiodarone 200mg tablet OGT SCH (08:13)
[2022-02-05] MEDS: pantoprazole 40MG/NS 100ML BAG 100 ML IV SCH (08:14)
[2022-02-05] MEDS: apixaban 5mg tablet OGT SCH ×2 (08:14→20:39)
[2022-02-05] MEDS: atorvastatin 20mg tablet OGT SCH (08:14)
[2022-02-05] MEDS: hydrocortisone sod succ/PF 100mg/2ml inj. IV SCH ×2 (08:18→17:28)
[2022-02-05] MEDS: MULTIVIT-MIN/FERROUS GLUCONATE 9 MG/15 ML LIQUID OGT SCH (08:56)
[2022-02-05] MEDS ORDERED: heparin 1,000unit/ml 10ml vial 10 ML IV ONE (10:00)
[2022-02-05] MEDS ORDERED: heparin 1,000 units/ml 10ml inj IV ONE (10:00)
[2022-02-05] MEDS ORDERED: heparin 1,000 units/ml 10ml inj HE ONE (10:05)
[2022-02-05] MEDS ORDERED: hydrocortisone sod succ/PF 100mg/2ml inj. IV SCH (11:16)
--- NOTE | 2022-02-05 12:18 | NUR ---
F/u 02/05: Pt tolerating NGTF at goal now off CVVH on HD w/ no current signs of sepsis per MD note. Remains NPO per AUTO BODY BUILDER APPRENTICE BSS recs this AM. TF recs adjusted given updated needs; MD notified. Rectal tube in place -200ml output receiving routine colace and miralax HS per EMR. DM education not appropriate at this time as nutrition support dependent w/ delirium per EMR. Will continue to monitor for TF tolerance and adjustment needs. Recommendations: 1. Continuous TF using Nepro 1.8 at 55mL/hr goal; to provide 1320mL volume/day, 2376kcal, 107g protein, and 960mL water 2. No additional water flush at this time in view of renal status; monitor serum Na 3. Prealbumin q Wednesday/; Daily scaled weights 4. Routine bowel care 5. advance diet as medically indicated to carb controlled per AUTO BODY BUILDER APPRENTICE/MD recs; consider renal restriction pending PO trends 6. DM education deferred until pt more appropriate and not nutrition support dependent; A1c 10.1% Addendum: 02/05/22 at [address] Amended: Links added.
[2022-02-05] MEDS ORDERED: midodrine 5mg tablet OGT PRN (16:57)
[2022-02-05] MEDS: albuterol 2.5 MG/3 ML nebule NEB PRN (18:47)
[2022-02-05] MEDS: QUEtiapine 25mg tablet OGT SCH (20:32)
[2022-02-05] MEDS: polyethylene glycol 3350 17gm powd pack OGT SCH (20:39)
[2022-02-05] MEDS: mineral oil/petrolatum, white cream 113gm jar TP SCH (20:40)
[2022-02-05] MEDS ORDERED: insulin glargine (Lantus) pen - multi-dose SQ ONE (21:00)
[2022-02-05] MEDS: insulin glargine (Lantus) pen - multi-dose SQ SCH (21:05)
--- NOTE | 2022-02-05 21:53 | NUR ---
Called Dr De Luna regarding blood glucose level of 96, was instructed to administer 15 units of lantus given decrease in steroid dose and tube feeding change.
[2022-02-06] VITALS (22 sets, daily range): BP systolic 99–150; BP diastolic 39–56
[2022-02-06] MEDS: insulin regular, human U-100 3ml vial - multi-dose SQ SCH ×4 (02:37→21:16)
[2022-02-06 02:49] LABS: BASOPHILS % (AUTO) 0.3 % (0-1); EOSINOPHILS % (AUTO) 0.2 % (0-6); HEMOGLOBIN 7.5 g/dl (14.0-17.9); LYMPHOCYTES # (AUTO) 1.2 X10'3 (1.1-4.8); LYMPHOCYTES % (AUTO) 11.9 % (21-51); MEAN CORPUSCULAR HEMOGLOBIN 29.6 PG (27.0-31.0); MEAN CORPUSCULAR VOLUME 87.1 FL (78-98); MEAN PLATELET VOLUME 8.1 FL (7.4-10.4); MONOCYTES # (AUTO) 0.7 X10'3 (0-0.9); MONOCYTES % (AUTO) 6.5 % (2-12); NEUTROPHILS # (AUTO) 8.6 X10'3 (1.8-7.7); NEUTROPHILS % (AUTO) 81.1 % (42-75); PLATELET COUNT 171 X10'3 (140-440); RED BLOOD COUNT 2.53 X10'6 (4.70-6.10); RED CELL DISTRIBUTION WIDTH 13.9 % (11.5-14.5); WHITE BLOOD COUNT 10.5 X10'3 (4.5-11.0)
[2022-02-06 03:02] LABS: ALANINE AMINOTRANSFERASE 8 U/L (12-78); ALBUMIN 1.9 G/DL (3.4-5.0); ALBUMIN/GLOBULIN RATIO 0.4 (1.1-1.5); ALKALINE PHOSPHATASE 70 IU/L (46-116); ANION GAP 11 (8-16); ASPARTATE AMINO TRANSFERASE 17 U/L (10-37); BILIRUBIN,TOTAL 0.5 MG/DL (0.1-1.0); BLOOD UREA NITROGEN 79 MG/DL (7-18); BUN/CREATININE RATIO 17.3 (5.4-32.0); CALCIUM 7.8 MG/DL (8.5-10.1); CHLORIDE 104 MMOL/L (99-107); CREATININE 4.56 MG/DL (0.60-1.10); GLUCOSE 114 MG/DL (70-104); POTASSIUM 3.8 MMOL/L (3.5-5.1); SODIUM 140 MMOL/L (135-145); TOTAL CARBON DIOXIDE 25.5 MMOL/L (24-32); TOTAL PROTEIN 6.3 G/DL (6.4-8.2); TRIGLYCERIDES 34 MG/DL (20-135); eGFR 13 ML/MIN
[2022-02-06] MEDS: docusate sodium 100mg/10ml UD cup OGT SCH ×2 (08:00→20:55)
[2022-02-06] MEDS: K and/or MAG REPLACEMENT MC SCH ×2 (08:00→19:42)
[2022-02-06] MEDS: albuterol 2.5 MG/3 ML nebule NEB PRN ×4 (08:09→20:08)
--- NOTE | 2022-02-06 08:15 | NUR ---
Patient's went into respiratory distress with o2 saturation in the 40s and HR in the 40s; patient BVM with improvement of o2 saturation to 100% and HR normalized; patient conscious, but fatigued. Dr. Lee at bedside with orders to restart Bipap and to NT suction. NT suction with small mucous plug noted. Orders to continue Bipap for now.
[2022-02-06] MEDS: carbidoba-levodopa 25-100mg tablet OGT SCH ×2 (08:22→20:55)
[2022-02-06] MEDS: metoclopramide 5 mg/ml inj IV SCH ×2 (08:22→20:55)
[2022-02-06] MEDS: amiodarone 200mg tablet CORPAK SCH (08:22)
[2022-02-06] MEDS: hydrocortisone sod succ/PF 100mg/2ml inj. IV SCH ×2 (08:22→16:09)
[2022-02-06] MEDS: atorvastatin 20mg tablet OGT SCH (08:22)
[2022-02-06] MEDS: mineral oil/petrolatum, white cream 113gm jar TP SCH ×2 (08:23→20:56)
[2022-02-06] MEDS: pantoprazole 40MG/NS 100ML BAG 100 ML IV SCH (08:23)
[2022-02-06] MEDS: apixaban 5mg tablet OGT SCH ×2 (08:23→20:56)
[2022-02-06] MEDS: MULTIVIT-MIN/FERROUS GLUCONATE 9 MG/15 ML LIQUID OGT SCH (08:32)
[2022-02-06] MEDS ORDERED: heparin 1,000 units/ml 10ml inj HE ONE ×2 (09:00→13:40)
[2022-02-06] MEDS: acetylcysteine 200 MG/ml 4ml vial INH SCH ×2 (11:21→20:09)
[2022-02-06 12:25] LABS: HBSAG SCREEN Negative (Negative)
--- NOTE | 2022-02-06 12:37 | NUR ---
PRESSURE ULCER EDUCATION: DEFINITION: A pressure ulcer is an area of skin that breaks down when you stay in one position too long. The constant pressure against the skin reduces the blood flow to that area and the affected tissue dies. CAUSES: "Being bedridden or in a wheelchair "Fragile skin "Having a chronic condition, such as diabetes or vascular disease "Inability to move certain parts of your body without assistance "Older age "Incontinence of urine or stool SYMPTOMS: "A reddened area that DOES NOT turn white when pressed on - this can be the beginning of a pressure ulcer "A blister, deep sore or a crater - these can be advanced pressure ulcers FIRST AID: "Relieve the pressure on this area "Keep the area clean and dry "Call your primary doctor if you see any of the above symptoms "DO NOT massage the area "DO NOT use a donut shaped or ring shaped pillow- these actually interfere with the blood flow and cause complications PREVENTION: "Check for pressure ulcers everyday "Change position at least every two hours to relieve pressure "Use items that help relieve pressure- pillows, sheepskin, foam padding, and powders. "Keep skin clean and dry "Eat healthy well balanced meals "Exercise daily IF YOU SEE ANY OF THESE SYMPTOMS WHILE IN THE HOSPITAL - TELL YOUR NURSE IMMEDIATELY. IF YOU SEE ANY OF THESE SYMPTOMS WHILE AT HOME OR HAVE ANY QUESTIONS OR CONCERNS ABOUT PRESSURE ULCERS - CALL YOUR PRIMARY DOCTOR IMMEDIATELY. Addendum: 02/06/22 at 1246 by Rand Paula RN Amended: Links added.
[2022-02-06] MEDS ORDERED: heparin 1,000unit/ml 10ml vial 10 ML IV ONE (13:50)
--- NOTE | 2022-02-06 18:25 | NUR ---
Problems reprioritized. Patient report given, questions answered & plan of care reviewed with Mac RN.
--- NOTE | 2022-02-06 20:00 | NUR ---
RN Note -Spoke with pt's . Pt is somewhat confused but more responsive than previously. Asking for a beer.
[2022-02-06] MEDS: morphine 2 MG/ML inj. syringe IV PRN (20:55)
[2022-02-06] MEDS: polyethylene glycol 3350 17gm powd pack OGT SCH (20:56)
[2022-02-06] MEDS: QUEtiapine 25mg tablet OGT SCH (20:56)
[2022-02-06] MEDS: insulin glargine (Lantus) pen - multi-dose SQ SCH (21:15)
--- NOTE | 2022-02-06 21:25 | NUR ---
RN Note -Pt is confused, attempting to climb out of bed, demanding a beer, pulling off pulse-ox, attempting to pull Corpak. Dr. De Luna notified, order received for Precedex.
[2022-02-06] MEDS: dexmedetomidine/D5W 100mL 100 ML IV SCH (21:50)
[2022-02-06 22:15] LABS: ABG BASE EXCESS -0.8 mmol/L (-2.0-2.0); ABG HCO3 23.1 mmol/L (22.0-26.0); ABG OXYGEN SATURATION 95.7 % (94-97); ABG PO2 (T) 80.8 mmHg (75.0-100.0); FCOHb 0.3 % (0.0-3.9); FLOW 2 L/min; FMetHb 0.4 % (0.0-1.5); PATIENT TEMPERATURE 36.7; TOTAL HEMOGLOBIN 8.5 G/dl (14.0-18.0)
[2022-02-07] VITALS (23 sets, daily range): BP systolic 87–148; BP diastolic 34–52
[2022-02-07 03:27] LABS: BASOPHILS % (AUTO) 0.5 % (0-1); EOSINOPHILS % (AUTO) 0.5 % (0-6); LYMPHOCYTES # (AUTO) 0.8 X10'3 (1.1-4.8); LYMPHOCYTES % (AUTO) 11.3 % (21-51); MEAN CORPUSCULAR HEMOGLOBIN 28.7 PG (27.0-31.0); MEAN CORPUSCULAR HGB CONC 32.9 g/dL (33.0-36.5); MEAN CORPUSCULAR VOLUME 87.3 FL (78-98); MEAN PLATELET VOLUME 8.3 FL (7.4-10.4); MONOCYTES # (AUTO) 0.6 X10'3 (0-0.9); MONOCYTES % (AUTO) 8.7 % (2-12); NEUTROPHILS # (AUTO) 5.9 X10'3 (1.8-7.7); PLATELET COUNT 178 X10'3 (140-440); RED CELL DISTRIBUTION WIDTH 14.2 % (11.5-14.5); WHITE BLOOD COUNT 7.4 X10'3 (4.5-11.0)
[2022-02-07 03:43] LABS: HEMOGLOBIN 6.9 g/dl (14.0-17.9)
[2022-02-07 04:11] LABS: ALANINE AMINOTRANSFERASE 10 U/L (12-78); ALBUMIN 1.7 G/DL (3.4-5.0); ALBUMIN/GLOBULIN RATIO 0.4 (1.1-1.5); ALKALINE PHOSPHATASE 74 IU/L (46-116); ANION GAP 7 (8-16); ASPARTATE AMINO TRANSFERASE 20 U/L (10-37); BILIRUBIN,TOTAL 0.4 MG/DL (0.1-1.0); BLOOD UREA NITROGEN 62 MG/DL (7-18); BUN/CREATININE RATIO 14.9 (5.4-32.0); CALCIUM 7.6 MG/DL (8.5-10.1); CHLORIDE 104 MMOL/L (99-107); CREATININE 4.16 MG/DL (0.60-1.10); GLUCOSE 209 MG/DL (70-104); POTASSIUM 3.9 MMOL/L (3.5-5.1); SODIUM 138 MMOL/L (135-145); TOTAL CARBON DIOXIDE 27.2 MMOL/L (24-32); TOTAL PROTEIN 5.9 G/DL (6.4-8.2); eGFR 14 ML/MIN
--- NOTE | 2022-02-07 04:45 | NUR ---
Tele rounds with Dr. Powell.
[2022-02-07] MEDS: dexmedetomidine/D5W 100mL 100 ML IV SCH ×3 (05:41→21:53)
[2022-02-07] MEDS: acetylcysteine 200 MG/ml 4ml vial INH SCH ×2 (07:26→19:35)
[2022-02-07] MEDS: albuterol 2.5 MG/3 ML nebule NEB PRN ×2 (07:26→19:35)
--- NOTE | 2022-02-07 07:43 | NUR ---
HGB 6.9; Dr. Lee at bedside; orders to hold off on x1 unit of blood and recheck H/H this afternoon. Will continue to monitor.
[2022-02-07] MEDS: K and/or MAG REPLACEMENT MC SCH ×2 (08:00→20:11)
[2022-02-07] MEDS: docusate sodium 100mg/10ml UD cup OGT SCH ×2 (08:45→20:00)
[2022-02-07] MEDS: carbidoba-levodopa 25-100mg tablet OGT SCH ×2 (08:46→20:10)
[2022-02-07] MEDS: pantoprazole 40MG/NS 100ML BAG 100 ML IV SCH (08:46)
[2022-02-07] MEDS: amiodarone 200mg tablet CORPAK SCH (08:46)
[2022-02-07] MEDS: apixaban 5mg tablet OGT SCH ×2 (08:46→20:10)
[2022-02-07] MEDS: mineral oil/petrolatum, white cream 113gm jar TP SCH ×2 (08:46→20:11)
[2022-02-07] MEDS: atorvastatin 20mg tablet OGT SCH (08:46)
[2022-02-07] MEDS: hydrocortisone sod succ/PF 100mg/2ml inj. IV SCH ×2 (08:46→16:29)
[2022-02-07] MEDS: metoclopramide 5 mg/ml inj IV SCH ×2 (08:46→20:10)
[2022-02-07] MEDS: MULTIVIT-MIN/FERROUS GLUCONATE 9 MG/15 ML LIQUID OGT SCH (08:46)
[2022-02-07] MEDS: insulin regular, human U-100 3ml vial - multi-dose SQ SCH (08:53)
[2022-02-07 13:24] LABS: HEMOGLOBIN 7.3 g/dl (14.0-17.9); MEAN CORPUSCULAR HEMOGLOBIN 29.2 PG (27.0-31.0); MEAN CORPUSCULAR HGB CONC 33.4 g/dL (33.0-36.5); MEAN CORPUSCULAR VOLUME 87.4 FL (78-98); MEAN PLATELET VOLUME 8.1 FL (7.4-10.4); PLATELET COUNT 198 X10'3 (140-440); RED CELL DISTRIBUTION WIDTH 14.3 % (11.5-14.5); WHITE BLOOD COUNT 9.3 X10'3 (4.5-11.0)
[2022-02-07 13:25] LABS: HEMATOCRIT 21.8 % (42.0-52.0)
[2022-02-07] MEDS: insulin Lispro (HumaLOG) vial - multi-dose SQ SCH ×2 (14:17→17:58)
--- NOTE | 2022-02-07 18:17 | NUR ---
Problems reprioritized. Patient report given, questions answered & plan of care reviewed with Althea HERNÁNDEZ.
--- NOTE | 2022-02-07 18:21 | NUR ---
Keep tube feeding off for now per MD; patient eating and tolerating food.
[2022-02-07] MEDS: polyethylene glycol 3350 17gm powd pack OGT SCH (20:09)
[2022-02-07] MEDS: QUEtiapine 25mg tablet OGT SCH (20:10)
[2022-02-07] MEDS: insulin glargine (Lantus) pen - multi-dose SQ SCH (21:04)
[2022-02-08] VITALS (24 sets, daily range): BP systolic 116–154; BP diastolic 36–64
[2022-02-08 03:17] LABS: BASOPHILS % (AUTO) 0.4 % (0-1); EOSINOPHILS # (AUTO) 0.1 X10'3 (0-0.9); EOSINOPHILS % (AUTO) 1.1 % (0-6); HEMOGLOBIN 7.1 g/dl (14.0-17.9); LYMPHOCYTES # (AUTO) 0.9 X10'3 (1.1-4.8); MEAN CORPUSCULAR HEMOGLOBIN 29.1 PG (27.0-31.0); MEAN CORPUSCULAR HGB CONC 33.5 g/dL (33.0-36.5); MEAN CORPUSCULAR VOLUME 86.9 FL (78-98); MEAN PLATELET VOLUME 8.2 FL (7.4-10.4); MONOCYTES # (AUTO) 0.6 X10'3 (0-0.9); MONOCYTES % (AUTO) 8.5 % (2-12); NEUTROPHILS # (AUTO) 5.9 X10'3 (1.8-7.7); PLATELET COUNT 192 X10'3 (140-440); RED BLOOD COUNT 2.44 X10'6 (4.70-6.10); RED CELL DISTRIBUTION WIDTH 14.3 % (11.5-14.5); WHITE BLOOD COUNT 7.5 X10'3 (4.5-11.0)
[2022-02-08 03:22] LABS: HEMATOCRIT 21.2 % (42.0-52.0)
--- NOTE | 2022-02-08 04:00 | NUR ---
We rounded on pt this morning, aware of hgb: 7.1 amd Hct: 21.2.
[2022-02-08 04:06] LABS: ALANINE AMINOTRANSFERASE 10 U/L (12-78); ALBUMIN 1.9 G/DL (3.4-5.0); ALBUMIN/GLOBULIN RATIO 0.4 (1.1-1.5); ALKALINE PHOSPHATASE 66 IU/L (46-116); ANION GAP 6 (8-16); ASPARTATE AMINO TRANSFERASE 21 U/L (10-37); BILIRUBIN,TOTAL 0.5 MG/DL (0.1-1.0); BLOOD UREA NITROGEN 83 MG/DL (7-18); BUN/CREATININE RATIO 14.3 (5.4-32.0); CALCIUM 7.9 MG/DL (8.5-10.1); CHLORIDE 104 MMOL/L (99-107); CREATININE 5.79 MG/DL (0.60-1.10); GLUCOSE 154 MG/DL (70-104); POTASSIUM 3.8 MMOL/L (3.5-5.1); SODIUM 137 MMOL/L (135-145); TOTAL CARBON DIOXIDE 27.5 MMOL/L (24-32); TOTAL PROTEIN 6.2 G/DL (6.4-8.2); eGFR 10 ML/MIN
[2022-02-08] MEDS: dexmedetomidine/D5W 100mL 100 ML IV SCH ×3 (05:59→22:11)
[2022-02-08] MEDS: albuterol 2.5 MG/3 ML nebule NEB PRN ×2 (07:48→19:22)
[2022-02-08] MEDS: acetylcysteine 200 MG/ml 4ml vial INH SCH ×2 (07:48→19:22)
[2022-02-08] MEDS: mineral oil/petrolatum, white cream 113gm jar TP SCH ×2 (08:00→20:30)
[2022-02-08] MEDS: docusate sodium 100mg/10ml UD cup OGT SCH ×2 (08:00→20:29)
[2022-02-08] MEDS: K and/or MAG REPLACEMENT MC SCH ×2 (08:00→20:30)
[2022-02-08] MEDS: apixaban 5mg tablet OGT SCH ×2 (08:34→20:29)
[2022-02-08] MEDS: pantoprazole 40MG/NS 100ML BAG 100 ML IV SCH (08:34)
[2022-02-08] MEDS: hydrocortisone sod succ/PF 100mg/2ml inj. IV SCH ×2 (08:35→17:12)
[2022-02-08] MEDS: metoclopramide 5 mg/ml inj IV SCH ×2 (08:35→20:29)
[2022-02-08] MEDS: carbidoba-levodopa 25-100mg tablet OGT SCH ×2 (08:35→20:29)
[2022-02-08] MEDS: amiodarone 200mg tablet CORPAK SCH (08:35)
[2022-02-08] MEDS: atorvastatin 20mg tablet OGT SCH (08:35)
[2022-02-08] MEDS: insulin Lispro (HumaLOG) vial - multi-dose SQ SCH ×2 (08:39→13:35)
[2022-02-08] MEDS: MULTIVIT-MIN/FERROUS GLUCONATE 9 MG/15 ML LIQUID OGT SCH (17:12)
[2022-02-08] MEDS: QUEtiapine 25mg tablet OGT SCH (20:30)
[2022-02-08] MEDS: polyethylene glycol 3350 17gm powd pack OGT SCH (20:30)
[2022-02-08] MEDS: insulin glargine (Lantus) pen - multi-dose SQ SCH (21:01)
[2022-02-09] VITALS (29 sets, daily range): BP systolic 100–152; BP diastolic 45–70
[2022-02-09 03:12] LABS: BASOPHILS % (AUTO) 0.3 % (0-1); EOSINOPHILS # (AUTO) 0.1 X10'3 (0-0.9); EOSINOPHILS % (AUTO) 1.8 % (0-6); HEMOGLOBIN 7.1 g/dl (14.0-17.9); LYMPHOCYTES # (AUTO) 0.8 X10'3 (1.1-4.8); LYMPHOCYTES % (AUTO) 11.5 % (21-51); MEAN CORPUSCULAR HEMOGLOBIN 28.8 PG (27.0-31.0); MEAN CORPUSCULAR HGB CONC 33.2 g/dL (33.0-36.5); MEAN CORPUSCULAR VOLUME 86.8 FL (78-98); MEAN PLATELET VOLUME 8.1 FL (7.4-10.4); MONOCYTES # (AUTO) 0.5 X10'3 (0-0.9); MONOCYTES % (AUTO) 7.7 % (2-12); NEUTROPHILS # (AUTO) 5.3 X10'3 (1.8-7.7); NEUTROPHILS % (AUTO) 78.7 % (42-75); PLATELET COUNT 197 X10'3 (140-440); RED BLOOD COUNT 2.47 X10'6 (4.70-6.10); RED CELL DISTRIBUTION WIDTH 14.3 % (11.5-14.5); WHITE BLOOD COUNT 6.7 X10'3 (4.5-11.0)
[2022-02-09 03:20] LABS: HEMATOCRIT 21.4 % (42.0-52.0)
[2022-02-09 03:32] LABS: ALANINE AMINOTRANSFERASE 7 U/L (12-78); ALBUMIN 1.8 G/DL (3.4-5.0); ALBUMIN/GLOBULIN RATIO 0.4 (1.1-1.5); ALKALINE PHOSPHATASE 67 IU/L (46-116); ANION GAP 11 (8-16); ASPARTATE AMINO TRANSFERASE 15 U/L (10-37); BILIRUBIN,TOTAL 0.5 MG/DL (0.1-1.0); BLOOD UREA NITROGEN 98 MG/DL (7-18); CALCIUM 8.2 MG/DL (8.5-10.1); CHLORIDE 103 MMOL/L (99-107); GLUCOSE 155 MG/DL (70-104); POTASSIUM 4.4 MMOL/L (3.5-5.1); SODIUM 138 MMOL/L (135-145); TOTAL CARBON DIOXIDE 24.4 MMOL/L (24-32); TOTAL PROTEIN 6.4 G/DL (6.4-8.2); eGFR 8 ML/MIN
[2022-02-09] MEDS: dexmedetomidine/D5W 100mL 100 ML IV SCH ×3 (06:17→22:29)
--- NOTE | 2022-02-09 06:28 | NUR ---
Problems reprioritized. Patient report given, questions answered & plan of care reviewed with EDGAR Toribio.
[2022-02-09] MEDS: MULTIVIT-MIN/FERROUS GLUCONATE 9 MG/15 ML LIQUID OGT SCH (08:00)
[2022-02-09] MEDS ORDERED: EPOETIN ALFA-EPBX 20,000 UNIT/ML 1 ML MDV IV ONE (08:00)
[2022-02-09] MEDS ORDERED: heparin 1,000 units/ml 10ml inj HE ONE ×2 (08:00→09:15)
[2022-02-09] MEDS: acetylcysteine 200 MG/ml 4ml vial INH SCH (08:00)
[2022-02-09] MEDS ORDERED: heparin 1,000 units/ml 10ml inj IV ONE (08:00)
[2022-02-09] MEDS: hydrocortisone sod succ/PF 100mg/2ml inj. IV SCH ×2 (08:29→16:52)
[2022-02-09] MEDS: metoclopramide 5 mg/ml inj IV SCH ×2 (08:30→20:20)
[2022-02-09] MEDS: pantoprazole 40MG/NS 100ML BAG 100 ML IV SCH (08:30)
[2022-02-09] MEDS: carbidoba-levodopa 25-100mg tablet OGT SCH ×2 (08:30→20:21)
[2022-02-09] MEDS: amiodarone 200mg tablet CORPAK SCH (08:30)
[2022-02-09] MEDS: apixaban 5mg tablet OGT SCH ×2 (08:30→20:00)
[2022-02-09] MEDS: docusate sodium 100mg/10ml UD cup OGT SCH ×2 (08:30→20:20)
[2022-02-09] MEDS: mineral oil/petrolatum, white cream 113gm jar TP SCH ×2 (08:31→20:21)
[2022-02-09] MEDS: atorvastatin 20mg tablet OGT SCH (08:31)
[2022-02-09] MEDS: insulin Lispro (HumaLOG) vial - multi-dose SQ SCH ×2 (13:56→18:06)
--- NOTE | 2022-02-09 14:41 | NUR ---
F/u 02/09: Pt TF off since 02/07 w/ intial PO 75-100% first two meals though corpak remains in place per EMR. Pt PO fluctuated 02/07-02/08 however consistently ~50% intake at this time partially meeting needs. RD d/w RN recommends Nepro ONS TIDWM if MD agreeable since can meet minimum needs without EN if consumes 100%. Noted Nepro TIDWM now active in EMR. Rectal tube -300ml 02/07-02/08 receiving routine colace, miralax, and reglan per EMR. Will continue to monitor for further nutrition intervention needs. Recommendations: 1. Continue pureed/nectar thick diet per SHEET MILL SUPERVISOR/MD recs; consider carb controlled restriction once PO consistently adequate 2. Nepro TIDWM to assist meeting needs on HD; encourage meal/ONS PO 3. Routine bowel care 4. weights w/ HD 5. DM education deferred until pt more appropriate; A1c 10.1% Addendum: 02/09/22 at [address] Amended: Links added.
[2022-02-09 15:04] LABS: BASOPHILS % (AUTO) 0.2 % (0-1); EOSINOPHILS # (AUTO) 0.1 X10'3 (0-0.9); EOSINOPHILS % (AUTO) 0.6 % (0-6); HEMATOCRIT 28.9 % (42.0-52.0); HEMOGLOBIN 9.6 g/dl (14.0-17.9); LYMPHOCYTES # (AUTO) 0.5 X10'3 (1.1-4.8); LYMPHOCYTES % (AUTO) 5.3 % (21-51); MEAN CORPUSCULAR HEMOGLOBIN 28.2 PG (27.0-31.0); MEAN CORPUSCULAR HGB CONC 33.2 g/dL (33.0-36.5); MEAN CORPUSCULAR VOLUME 85.1 FL (78-98); MEAN PLATELET VOLUME 7.7 FL (7.4-10.4); MONOCYTES # (AUTO) 0.4 X10'3 (0-0.9); MONOCYTES % (AUTO) 4.8 % (2-12); NEUTROPHILS # (AUTO) 7.6 X10'3 (1.8-7.7); NEUTROPHILS % (AUTO) 89.1 % (42-75); PLATELET COUNT 221 X10'3 (140-440); RED BLOOD COUNT 3.39 X10'6 (4.70-6.10); RED CELL DISTRIBUTION WIDTH 14.4 % (11.5-14.5); WHITE BLOOD COUNT 8.6 X10'3 (4.5-11.0)
[2022-02-09] MEDS ORDERED: NORepinephrine inj. 8 MG in dextrose 5%-water 242 ML IV SCH (17:45)
[2022-02-09] MEDS ORDERED: NORepinephrine 8mg/ 250ml NS 250 ML IV SCH (17:47)
[2022-02-09] MEDS: NUT.TX.IMP.RENAL FXN,LAC-REDUC (Nepro) 237 ML VANILLA PO SCH (18:36)
[2022-02-09] MEDS: K and/or MAG REPLACEMENT MC SCH ×2 (20:00→22:00)
[2022-02-09] MEDS: polyethylene glycol 3350 17gm powd pack OGT SCH (20:21)
[2022-02-09] MEDS: QUEtiapine 25mg tablet OGT SCH (20:21)
[2022-02-09] MEDS: insulin glargine (Lantus) pen - multi-dose SQ SCH (20:51)
[2022-02-10] VITALS (23 sets, daily range): BP systolic 102–150; BP diastolic 48–70
[2022-02-10 02:21] LABS: BASOPHILS % (AUTO) 0.4 % (0-1); EOSINOPHILS % (AUTO) 0.7 % (0-6); HEMATOCRIT 25.1 % (42.0-52.0); HEMOGLOBIN 8.4 g/dl (14.0-17.9); LYMPHOCYTES # (AUTO) 0.8 X10'3 (1.1-4.8); LYMPHOCYTES % (AUTO) 13.3 % (21-51); MEAN CORPUSCULAR HEMOGLOBIN 28.9 PG (27.0-31.0); MEAN CORPUSCULAR HGB CONC 33.6 g/dL (33.0-36.5); MEAN PLATELET VOLUME 7.5 FL (7.4-10.4); MONOCYTES # (AUTO) 0.5 X10'3 (0-0.9); MONOCYTES % (AUTO) 8.7 % (2-12); NEUTROPHILS # (AUTO) 4.4 X10'3 (1.8-7.7); NEUTROPHILS % (AUTO) 76.9 % (42-75); PLATELET COUNT 180 X10'3 (140-440); RED BLOOD COUNT 2.92 X10'6 (4.70-6.10); RED CELL DISTRIBUTION WIDTH 14.7 % (11.5-14.5); WHITE BLOOD COUNT 5.7 X10'3 (4.5-11.0)
[2022-02-10 02:36] LABS: ALBUMIN 1.7 G/DL (3.4-5.0); ALBUMIN/GLOBULIN RATIO 0.4 (1.1-1.5); ALKALINE PHOSPHATASE 63 IU/L (46-116); ANION GAP 12 (8-16); ASPARTATE AMINO TRANSFERASE 14 U/L (10-37); BILIRUBIN,TOTAL 0.5 MG/DL (0.1-1.0); BLOOD UREA NITROGEN 64 MG/DL (7-18); BUN/CREATININE RATIO 12.7 (5.4-32.0); CALCIUM 7.6 MG/DL (8.5-10.1); CHLORIDE 102 MMOL/L (99-107); CREATININE 5.04 MG/DL (0.60-1.10); GLUCOSE 186 MG/DL (70-104); POTASSIUM 3.6 MMOL/L (3.5-5.1); SODIUM 137 MMOL/L (135-145); TOTAL PROTEIN 6.2 G/DL (6.4-8.2); eGFR 12 ML/MIN
[2022-02-10 03:00] LABS: ALANINE AMINOTRANSFERASE 9 U/L (12-78)
--- NOTE | 2022-02-10 06:23 | NUR ---
Problems reprioritized. Patient report given, questions answered & plan of care reviewed with EDGAR Toribio.
[2022-02-10] MEDS: dexmedetomidine/D5W 100mL 100 ML IV SCH (06:35)
[2022-02-10] MEDS: NUT.TX.IMP.RENAL FXN,LAC-REDUC (Nepro) 237 ML VANILLA PO SCH ×3 (08:00→17:53)
[2022-02-10] MEDS: K and/or MAG REPLACEMENT MC SCH ×2 (08:00→20:00)
[2022-02-10] MEDS: apixaban 5mg tablet OGT SCH ×2 (08:00→20:14)
[2022-02-10] MEDS: docusate sodium 100mg/10ml UD cup OGT SCH ×2 (08:00→20:00)
[2022-02-10] MEDS: mineral oil/petrolatum, white cream 113gm jar TP SCH ×2 (08:38→20:26)
[2022-02-10] MEDS: atorvastatin 20mg tablet OGT SCH (08:46)
[2022-02-10] MEDS: carbidoba-levodopa 25-100mg tablet OGT SCH ×2 (08:46→20:14)
[2022-02-10] MEDS: metoclopramide 5 mg/ml inj IV SCH (08:46)
[2022-02-10] MEDS: amiodarone 200mg tablet CORPAK SCH (08:47)
[2022-02-10] MEDS: pantoprazole 40MG/NS 100ML BAG 100 ML IV SCH (08:48)
[2022-02-10] MEDS: MULTIVIT-MIN/FERROUS GLUCONATE 9 MG/15 ML LIQUID OGT SCH (09:28)
[2022-02-10] MEDS ORDERED: LIDOCAINE 1% w/preservative (10 MG/ML) inj. 10mL VIAL ONE (10:33)
[2022-02-10] MEDS ORDERED: heparin 1,000unit/ml 10ml vial 10 ML ONE (10:33)
[2022-02-10] MEDS ORDERED: fentaNYL/PF 50MCG/1 ML 2ML syringe ONE (10:33)
[2022-02-10] MEDS ORDERED: metoclopramide 5 mg/ml inj IV PRN (11:08)
[2022-02-10] MEDS: insulin Lispro (HumaLOG) vial - multi-dose SQ SCH ×2 (13:10→17:45)
[2022-02-10] MEDS: QUEtiapine 25mg tablet OGT SCH (20:14)
[2022-02-10] MEDS: insulin glargine (Lantus) pen - multi-dose SQ SCH (20:28)
[2022-02-10] MEDS: polyethylene glycol 3350 17gm powd pack OGT SCH (21:00)
[2022-02-11] VITALS (17 sets, daily range): BP systolic 104–148; BP diastolic 47–87
[2022-02-11 02:48] LABS: BASOPHILS % (AUTO) 0.8 % (0-1); EOSINOPHILS # (AUTO) 0.3 X10'3 (0-0.9); EOSINOPHILS % (AUTO) 5.7 % (0-6); HEMATOCRIT 24.5 % (42.0-52.0); HEMOGLOBIN 8.4 g/dl (14.0-17.9); LYMPHOCYTES % (AUTO) 17.7 % (21-51); MEAN CORPUSCULAR HEMOGLOBIN 29.4 PG (27.0-31.0); MEAN CORPUSCULAR HGB CONC 34.1 g/dL (33.0-36.5); MEAN CORPUSCULAR VOLUME 86.3 FL (78-98); MEAN PLATELET VOLUME 7.5 FL (7.4-10.4); MONOCYTES # (AUTO) 0.5 X10'3 (0-0.9); MONOCYTES % (AUTO) 9.1 % (2-12); NEUTROPHILS # (AUTO) 3.7 X10'3 (1.8-7.7); NEUTROPHILS % (AUTO) 66.7 % (42-75); PLATELET COUNT 170 X10'3 (140-440); RED BLOOD COUNT 2.84 X10'6 (4.70-6.10); RED CELL DISTRIBUTION WIDTH 14.8 % (11.5-14.5); WHITE BLOOD COUNT 5.6 X10'3 (4.5-11.0)
[2022-02-11 03:11] LABS: ALBUMIN 1.6 G/DL (3.4-5.0); ALBUMIN/GLOBULIN RATIO 0.4 (1.1-1.5); ALKALINE PHOSPHATASE 57 IU/L (46-116); ANION GAP 13 (8-16); ASPARTATE AMINO TRANSFERASE 12 U/L (10-37); BILIRUBIN,TOTAL 0.4 MG/DL (0.1-1.0); BLOOD UREA NITROGEN 79 MG/DL (7-18); BUN/CREATININE RATIO 12.1 (5.4-32.0); CALCIUM 7.3 MG/DL (8.5-10.1); CHLORIDE 104 MMOL/L (99-107); CREATININE 6.53 MG/DL (0.60-1.10); GLUCOSE 131 MG/DL (70-104); POTASSIUM 3.8 MMOL/L (3.5-5.1); SODIUM 140 MMOL/L (135-145); TOTAL CARBON DIOXIDE 23.3 MMOL/L (24-32); TOTAL PROTEIN 5.9 G/DL (6.4-8.2); eGFR 9 ML/MIN
[2022-02-11 03:33] LABS: ALANINE AMINOTRANSFERASE 7 U/L (12-78)
[2022-02-11] MEDS ORDERED: lansoprazole 15mg solutab OGT SCH (07:30)
[2022-02-11] MEDS ORDERED: docusate sod 100mg capsule PO SCH (07:54)
[2022-02-11] MEDS: amiodarone 200mg tablet CORPAK SCH (07:54)
[2022-02-11] MEDS: apixaban 5mg tablet OGT SCH (07:54)
[2022-02-11] MEDS ORDERED: multivitamins, therapeutics tablet PO SCH (07:54)
[2022-02-11] MEDS: mineral oil/petrolatum, white cream 113gm jar TP SCH (07:54)
[2022-02-11] MEDS: atorvastatin 20mg tablet OGT SCH (07:54)
[2022-02-11] MEDS: carbidoba-levodopa 25-100mg tablet OGT SCH (07:54)
[2022-02-11] MEDS: K and/or MAG REPLACEMENT MC SCH (07:58)
[2022-02-11] MEDS ORDERED: heparin 1,000unit/ml 10ml vial 10 ML IV ONE (08:00)
[2022-02-11] MEDS ORDERED: EPOETIN ALFA-EPBX 20,000 UNIT/ML 1 ML MDV IV ONE (08:00)
[2022-02-11] MEDS: NUT.TX.IMP.RENAL FXN,LAC-REDUC (Nepro) 237 ML VANILLA PO SCH (08:00)
[2022-02-11] MEDS ORDERED: heparin 1,000 units/ml 10ml inj HE ONE ×2 (08:00)
[2022-02-11] MEDS ORDERED: heparin 1,000 units/ml 10ml inj IV ONE (08:00)
--- NOTE | 2022-02-11 15:06 | NUR ---
pt stood with PT. skin clear
--- NOTE | 2022-02-11 15:07 | NUR ---
report called to Aubrie roman [facility]. time allowed for questions
--- NOTE | 2022-02-11 15:16 | NUR ---
PRESSURE ULCER EDUCATION: DEFINITION: A pressure ulcer is an area of skin that breaks down when you stay in one position too long. The constant pressure against the skin reduces the blood flow to that area and the affected tissue dies. CAUSES: "Being bedridden or in a wheelchair "Fragile skin "Having a chronic condition, such as diabetes or vascular disease "Inability to move certain parts of your body without assistance "Older age "Incontinence of urine or stool SYMPTOMS: "A reddened area that DOES NOT turn white when pressed on - this can be the beginning of a pressure ulcer "A blister, deep sore or a crater - these can be advanced pressure ulcers FIRST AID: "Relieve the pressure on this area "Keep the area clean and dry "Call your primary doctor if you see any of the above symptoms "DO NOT massage the area "DO NOT use a donut shaped or ring shaped pillow- these actually interfere with the blood flow and cause complications PREVENTION: "Check for pressure ulcers everyday "Change position at least every two hours to relieve pressure "Use items that help relieve pressure- pillows, sheepskin, foam padding, and powders. "Keep skin clean and dry "Eat healthy well balanced meals "Exercise daily IF YOU SEE ANY OF THESE SYMPTOMS WHILE IN THE HOSPITAL - TELL YOUR NURSE IMMEDIATELY. IF YOU SEE ANY OF THESE SYMPTOMS WHILE AT HOME OR HAVE ANY QUESTIONS OR CONCERNS ABOUT PRESSURE ULCERS - CALL YOUR PRIMARY DOCTOR IMMEDIATELY. Addendum: 02/11/22 at 1517 by Rand Paula LVN Amended: Links added.
--- NOTE | 2022-02-11 16:47 | NUR ---
SV[facility] here pt loaded onto [employer] report given to a staff. pt left with all belongings
[2022-02-12] MEDS ORDERED: pantoprazole 40mg Tablet.DR PO SCH (07:30)
== END 2022-02-11 16:49 | DRG 870 ==
LOC: ER 14:15 → ED HOLD 18:03 → SUR 3N 22:07 → ICU 2S 01-21 14:30
PROVIDERS: ADMIT Family Medicine; ATTEND Family Medicine
PROC: 5A1955Z Respiratory Ventilation, Greater than 96 Consecutive Hours (ICD-10-PCS; principal; 2022-01-21)
PROC: 0BH17EZ Insertion of Endotracheal Airway into Trachea, Via Natural or Artificial Opening (ICD-10-PCS; 2022-01-21)
PROC: 5A2204Z Restoration of Cardiac Rhythm, Single (ICD-10-PCS; 2022-01-21)
PROC: 02HV33Z Insertion of Infusion Device into Superior Vena Cava, Percutaneous Approach (ICD-10-PCS; 2022-01-21)
PROC: 04HY32Z Insertion of Monitoring Device into Lower Artery, Percutaneous Approach (ICD-10-PCS; 2022-01-21)
PROC: 4A133B1 Monitoring of Arterial Pressure, Peripheral, Percutaneous Approach (ICD-10-PCS; 2022-01-21)
PROC: 4A133J1 Monitoring of Arterial Pulse, Peripheral, Percutaneous Approach (ICD-10-PCS; 2022-01-21)
PROC: 5A12012 Performance of Cardiac Output, Single, Manual (ICD-10-PCS; 2022-01-21)
PROC: 06HY33Z Insertion of Infusion Device into Lower Vein, Percutaneous Approach (ICD-10-PCS; 2022-01-23)
PROC: B54BZZA Ultrasonography of Right Lower Extremity Veins, Guidance (ICD-10-PCS; 2022-01-23)
PROC: 5A1D70Z Performance of Urinary Filtration, Intermittent, Less than 6 Hours Per Day (ICD-10-PCS; 2022-01-25)
PROC: 02HV33Z Insertion of Infusion Device into Superior Vena Cava, Percutaneous Approach (ICD-10-PCS; 2022-01-27)
PROC: B548ZZA Ultrasonography of Superior Vena Cava, Guidance (ICD-10-PCS; 2022-01-27)
PROC: 03HY32Z Insertion of Monitoring Device into Upper Artery, Percutaneous Approach (ICD-10-PCS; 2022-01-28)
PROC: 4A133B1 Monitoring of Arterial Pressure, Peripheral, Percutaneous Approach (ICD-10-PCS; 2022-01-28)
PROC: 4A133J1 Monitoring of Arterial Pulse, Peripheral, Percutaneous Approach (ICD-10-PCS; 2022-01-28)
PROC: 02HV33Z Insertion of Infusion Device into Superior Vena Cava, Percutaneous Approach (ICD-10-PCS; 2022-01-30)
PROC: B548ZZA Ultrasonography of Superior Vena Cava, Guidance (ICD-10-PCS; 2022-01-30)
PROC: 5A09357 Assistance with Respiratory Ventilation, Less than 24 Consecutive Hours, Continuous Positive Airway Pressure (ICD-10-PCS; 2022-02-02)
PROC: 5A09357 Assistance with Respiratory Ventilation, Less than 24 Consecutive Hours, Continuous Positive Airway Pressure (ICD-10-PCS; 2022-02-03)
PROC: 5A1D70Z Performance of Urinary Filtration, Intermittent, Less than 6 Hours Per Day (ICD-10-PCS; 2022-02-04)
PROC: 5A09357 Assistance with Respiratory Ventilation, Less than 24 Consecutive Hours, Continuous Positive Airway Pressure (ICD-10-PCS; 2022-02-06)
PROC: 5A1D70Z Performance of Urinary Filtration, Intermittent, Less than 6 Hours Per Day (ICD-10-PCS; 2022-02-06)
PROC: 5A09357 Assistance with Respiratory Ventilation, Less than 24 Consecutive Hours, Continuous Positive Airway Pressure (ICD-10-PCS; 2022-02-08)
PROC: 5A1D70Z Performance of Urinary Filtration, Intermittent, Less than 6 Hours Per Day (ICD-10-PCS; 2022-02-09)
PROC: 30233N1 Transfusion of Nonautologous Red Blood Cells into Peripheral Vein, Percutaneous Approach (ICD-10-PCS; 2022-02-09)
PROC: 0JH63XZ Insertion of Tunneled Vascular Access Device into Chest Subcutaneous Tissue and Fascia, Percutaneous Approach (ICD-10-PCS; 2022-02-10)
PROC: 02HV33Z Insertion of Infusion Device into Superior Vena Cava, Percutaneous Approach (ICD-10-PCS; 2022-02-10)
PROC: B548ZZA Ultrasonography of Superior Vena Cava, Guidance (ICD-10-PCS; 2022-02-10)
PROC: B5181ZA Fluoroscopy of Superior Vena Cava using Low Osmolar Contrast, Guidance (ICD-10-PCS; 2022-02-10)
DX: A41.9 Sepsis, unspecified organism (principal); N17.0 Acute kidney failure with tubular necrosis; I46.9 Cardiac arrest, cause unspecified; R65.21 Severe sepsis with septic shock; J96.01 Acute respiratory failure with hypoxia; G93.41 Metabolic encephalopathy; J18.9 Pneumonia, unspecified organism; L03.116 Cellulitis of left lower limb; E22.2 Syndrome of inappropriate secretion of antidiuretic hormone; I13.0 Hypertensive heart and chronic kidney disease with heart failure and stage 1 through stage 4 chronic kidney disease, or unspecified chronic kidney disease; J44.0 Chronic obstructive pulmonary disease with (acute) lower respiratory infection; Z99.11 Dependence on respirator [ventilator] status; L97.929 Non-pressure chronic ulcer of unspecified part of left lower leg with unspecified severity; E66.9 Obesity, unspecified; N18.30 Chronic kidney disease, stage 3 unspecified; D64.9 Anemia, unspecified; E11.65 Type 2 diabetes mellitus with hyperglycemia; E78.5 Hyperlipidemia, unspecified; E87.6 Hypokalemia; G20 Parkinson's disease; I48.91 Unspecified atrial fibrillation; I50.9 Heart failure, unspecified; Z79.01 Long term (current) use of anticoagulants; Z79.899 Other long term (current) drug therapy; Z83.3 Family history of diabetes mellitus; Z86.711 Personal history of pulmonary embolism; Z86.718 Personal history of other venous thrombosis and embolism; Z68.34 Body mass index [BMI] 34.0-34.9, adult
CPT/HCPCS: 36415; 36430; 36556; 36558; 36569; 36600; 70450; 71045; 74018; 76770; 76937; 76942; 77001; 80048; 80053; 80069; 80076; 80202; 81001; 82330; 82550; 82553; 82803; 82948; 83036; 83605; 83735; 84100; 84132; 84134; 84145; 84478; 84484; 85007; 85018; 85025; 85027; 85610; 85730; 86885; 86900; 86901; 86920; 87040; 87070; 87081; 87088; 87340; 90935; 92508; 92616; 92950; 93005; 93306; 93926; 93971; 94002; 94003; 94640; 94660; 94760; 94799; 96365; 96375; 97110; 97161; 97530; 99285; A9270; C1750; C1751; C1769; C1894; C9113; E1594; G0257; G0378; J0131; J0282; J0692; J0696; J1200; J1644; J1720; J1815; J2270; J2370; J2543; J2704; J2765; J2997; J3010; J3370; J3475; J3480; J3490; J7030; J7050; J7070; J7120; P9016; Q4081

== ENCOUNTER 2022-02-25 11:23 | Emergency (ER) | payer MEDICARE ==
[~2022-02-25] VITALS: Ht 177.8 cm; Wt 110.5 kg
[~2022-02-25 11:23] MED LIST changes: -ALBU8HFA PO; -ATOR10TA70 PO; +ATOR20TA66 PO; +CARV6.252 PO; -IPRA3AMP31 IH; -TIOT4MIS3
--- NOTE | 2022-02-25 12:05 | NUR ---
to ct scan.
[2022-02-25 16:18] VITALS: BP 137/80
== END 2022-02-25 16:25 | disposition home or self-care (01) ==
LOC: ER 11:24
DX: R53.1 Weakness (principal); R51.9 Headache, unspecified; I11.0 Hypertensive heart disease with heart failure; I50.9 Heart failure, unspecified; J44.9 Chronic obstructive pulmonary disease, unspecified; E11.9 Type 2 diabetes mellitus without complications; Z86.718 Personal history of other venous thrombosis and embolism; Z79.899 Other long term (current) drug therapy; W19.XXXA Unspecified fall, initial encounter; Y93.89 Activity, other specified; Y92.89 Other specified places as the place of occurrence of the external cause; Y99.8 Other external cause status
CPT/HCPCS: 70450; 99284

== ENCOUNTER 2023-09-16 10:46 | Day surgery (SDC) | payer MEDICARE ==
[~2023-09-16] VITALS: Ht 177.8 cm; Wt 101.8 kg
[~2023-09-16 10:46] MED LIST changes: -LOSA100T57 PO; +LOSA100T58 PO
[2023-09-16 11:00] VITALS: BP 170/76; PULSE 82; RESP 18; TEMP 98.3; O2SAT 82; O2SAT 98
[2023-09-16] MEDS ORDERED: MIDO5TAB4 (11:09)
[2023-09-16] MEDS ORDERED: INSU100I31 (11:09)
[2023-09-16] MEDS ORDERED: PHO667C PO (11:09)
[2023-09-16] MEDS ORDERED: FURO80TA3 PO (11:09)
[2023-09-16] MEDS ORDERED: AMI200T PO (11:09)
[2023-09-16 11:32] VITALS: BP 167/71; PULSE 80; RESP 18; O2SAT 96
[2023-09-16 11:45] VITALS: BP 153/77; PULSE 80; RESP 18; O2SAT 95
[2023-09-16 11:51] VITALS: BP 169/55; PULSE 80; RESP 18; RESP 80; O2SAT 96
[2023-09-16 12:00] VITALS: BP 155/57; PULSE 76; RESP 18; O2SAT 96
[2023-09-16 12:15] VITALS: BP 150/73; PULSE 76; RESP 18; O2SAT 96
== END 2023-09-16 12:22 | disposition home or self-care (01) ==
LOC: SSTAY O 10:46
PROVIDERS: ATTEND Radiology Diagnostic Radiology
DX: T82.4 Mechanical complication of vascular dialysis catheter (principal); E11.22 Type 2 diabetes mellitus with diabetic chronic kidney disease; I13.2 Hypertensive heart and chronic kidney disease with heart failure and with stage 5 chronic kidney disease, or end stage renal disease; N18.6 End stage renal disease; I50.9 Heart failure, unspecified; J44.9 Chronic obstructive pulmonary disease, unspecified; Z87.01 Personal history of pneumonia (recurrent); Z86.718 Personal history of other venous thrombosis and embolism; Z79.899 Other long term (current) drug therapy; Z79.01 Long term (current) use of anticoagulants; Z83.3 Family history of diabetes mellitus; Y83.8 Other surgical procedures as the cause of abnormal reaction of the patient, or of later complication, without mention of misadventure at the time of the procedure; Y92.89 Other specified places as the place of occurrence of the external cause
CPT/HCPCS: 36589; A6258; A6402; A6449

== ENCOUNTER 2025-05-03 03:46 | Emergency (ER) | payer MEDICARE ==
[~2025-05-03] VITALS: Ht 175.3 cm; Wt 90.9 kg
[~2025-05-03 03:46] MED LIST changes: +AMI200T PO; -AMLO10TA PO; -CARV6.252 PO; +FURO80TA3 PO; -GLYB5TAB7 PO; -HYDR12.55 PO; +INSU100I31; -LOSA100T58 PO; -MELA3TAB39 PO; +MIDO5TAB4; -MULT-1085 PO; +PHO667C PO
[2025-05-03 03:51] VITALS: TEMP 98.2
--- NOTE | 2025-05-03 04:06 | Physician Documentation ---
History of Present Illness ~ Chief Complaint: Extremity Swelling Stated Complaint: DVT Time Seen by MD: 04:05 Primary Medical Doctor: Saul Mendosa MD Mode of Arrival: POV HPI Patient presents to the emergency room per request of the results of an earlier ultrasound performed earlier in the day. Patient has a dialysis patient that has noting some pain in his right leg therefore told his doctor about this and they ordered a bilateral ultrasound of his lower extremities as he does have history of DVT. Received a phone call this evening that told him to go to the emergency room for DVT. He was told that has in his left leg which she states is asymptomatic with no changes from baseline. Tetanus witin 5 years: Yes Medication Reconciliation Allergies: Coded Allergies: No Known Allergies (Unverified , 05/03/25) Scheduled Amiodarone Hcl (Cordarone), 1 TAB PO DAILY, (Reported) Apixaban (Eliquis), 1 TAB PO Q12H, (Reported) Atorvastatin Calcium (LIPITOR tablet), 20 MG PO DAILY, (Reported) Calcium Acetate (Calcium Acetate), 2 CAP PO TID, (Reported) Carbidopa/Levodopa (Carbidopa-Levodopa 25-100 Tab), 1 TAB PO BID, (Reported) Furosemide (Furosemide), 1 TAB PO BID, (Reported) Miscellaneous Medications Insulin Glargine,Hum.rec.anlog (Basaglar Kwikpen U-100), (Reported) Midodrine HCl (Midodrine HCl), (Reported) Past Medical History Past Medical History: Congestive Heart Failure, Hypertension, COPD, Pneumonia, Diabetes, Deep Vein Thrombosis Past Surgical History: noncontributory Patient History: FH: diabetes mellitus Alcohol Use: None Lives with: Spouse Lives In: Home Occupation: employed Review of Systems ROS All review of systems negative except as per HPI Physical Exam Vital Signs: Temperature: 98.2, Source: Temporal, Heart Rate: 88, Respiratory Rate: 18, BP: 150/73, Pulse Oximetry: 96, Weight: 90.900 Oxygen Flow Rate: 0 Physical Exam General: Patient is awake, alert, oriented x4 in no acute distress Head: Normocephalic and atraumatic. Eyes: Conjunctival normal. EOMI. PERRL. ENT: Mucous membranes moist. Neck: Supple, trachea is midline. Chest: Clear to auscultation bilaterally without rales, rhonchi, or wheezes. There is no accessory muscle use or retractions. Cardiac: RRR without murmurs, gallops, or rubs. Abd: Soft, nondistended, nontender, with normoactive bowel sounds. No guarding, rebound, or rigidity. Extremities: Diffuse swelling to left leg without erythema Progress Results/Orders Results/Orders Orders - TYRONE BRICEÑO MD Venous (05/03/25 04:25) Completed Orders - TYRONE BRICEÑO MD Venous (05/03/25 04:25) Cbc/Diff (05/03/25 04:36) BMP (05/03/25 04:36) Pt Inr (05/03/25 04:36) Vital Signs 05/03/25 05/03/25 05/03/25 05/03/25 03:51 04:03 06:06 07:51 Temp 98.2 Pulse 88 82 74 Resp 16 18 16 18 B/P (MAP) 150/73 141/67 (91) 150/74 Pulse Ox 96 95 97 O2 Flow Rate 0 0 Laboratory Tests Test 05/03/25 04:45 White Blood Count 10.9 Red Blood Count 3.78 L Hemoglobin 11.0 L Hematocrit 32.3 L Mean Corpuscular Volume 85.5 Mean Corpuscular Hemoglobin 29.0 Mean Corpuscular Hemoglobin Concent 33.9 Red Cell Distribution Width 14.0 Platelet Count 206 Mean Platelet Volume 6.7 L Neutrophils (%) (Auto) 79.4 H Lymphocytes (%) (Auto) 6.9 L Monocytes (%) (Auto) 8.5 Eosinophils (%) (Auto) 4.4 Basophils (%) (Auto) 0.8 Neutrophils # (Auto) 8.6 H Lymphocytes # (Auto) 0.8 L Monocytes # (Auto) 0.9 Eosinophils # (Auto) 0.5 Basophils # (Auto) 0.1 CBC Comment Prothrombin Time 10.9 INR International Normalized Ratio 1.1 Coagulation Comments Sodium Level 135 Potassium Level 4.1 Chloride Level 97 L Carbon Dioxide Level 28.4 Anion Gap 10 Blood Urea Nitrogen 57 H Creatinine 3.22 H Estimated GFR/1.73 m2 19 BUN/Creatinine Ratio 17.7 Glucose Level 164 H Calcium Level 9.4 Albumin 3.2 L Chemistry Comments Medical Decision Making Findings VENOUS DOPPLER BILATERAL LOWER EXTREMITIES: IMPRESSION: 1. Noncompressible thrombus in the left femoral and popliteal veins of indeterminate chronicity. 2. No evidence of deep vein thrombosis in the right lower extremity. Superficial thrombus in the right greater saphenous vein. 3. Enlarged bilateral inguinal lymph nodes. Patient is a 69-year-old man who comes in complaining of pain in the distal posterior thigh during dialysis. This has been occurring for approximately a month and occurs at the same time during dialysis. Patient also has had pain in the proximal calf on the right. There was a finding of a superficial thrombophlebitis in the greater saphenous vein. This is where he is having current symptoms. He is instructed to apply warm compresses. The vascular Doppler of the left lower extremity revealed DVT in the femoral vein and popliteal vein. However the radiologist was unable to determine the chronicity of this blood clot. At this time I am not going to assume that this is new or acute given his history and his compliance with the Eliquis. Patient is inst ructed to follow up with his primary care doctor today to further evaluate and make the final decision as to whether any further intervention needs to be done. Patient is given his ultrasound report to take to his primary care doctor. Patient is stable for discharge. Patient isn't having any signs or symptoms of a pulmonary embolus. Departure Time of Disposition: 07:44 Disposition: HOME / SELF CARE / HOMELESS Impression: Primary Impression: Superficial thrombophlebitis Qualified Codes: I80.01 - Phlebitis and thrombophlebitis of superficial vessels of right lower extremity Discharge Instructions: Thrombophlebitis Additional Instructions: YOU MUST CALL YOUR PRIMARY CARE DOCTOR TODAY FOR FURTHER EVALUATION TO DETERMINE THE CHRONICITY OF THE DVT IN THE LEFT LOWER EXTREMITY. I SUSPECT GIVEN YOUR HISTORY IN THE FACT THAT YOU HAD BEEN COMPLIANT WITH YOUR ELIQUIS/ANTICOAGULANTS THAT THE FINDINGS ON THE ULTRASOUND ARE CHRONIC IN THE LEFT LOWER EXTREMITY. IF THE FINDINGS IN THE LEFT LOWER EXTREMITY TODAY ARE NEW OR ACUTE THEN YOU WOULD NEED FURTHER INTERVENTION WITH A POSSIBLE RENUKA FILTER SINCE THE ELIQUIS DID NOT PREVENT A RECURRENT DVT. HOWEVER I DO NOT SUSPECT THIS TO BE THE CASE. FOLLOW UP WITH YOUR PRIMARY CARE DOCTOR TO CONFIRM. Education Educated: Patient, Family Educated regarding: diagnosis, treatment, need for follow up Signature Scribe Signature: No scribe Attestation: The note accurately reflects work and decisions made by me.Tyrone Briceño MD 05/04/25 01:26 TYRONE Chan MD May 03, 2025 04:06 ALANA RAMSEY MD May 03, 2025 07:50
[2025-05-03 05:03] LABS: MEAN PLATELET VOLUME 6.7 FL (7.4-10.4); RED CELL DISTRIBUTION WIDTH 14.0 % (11.5-14.5)
[2025-05-03 05:07] LABS: CREATININE 3.22 MG/DL (0.60-1.10); TOTAL CARBON DIOXIDE 28.4 MMOL/L (24-32); eCRCL 22 ML/MIN; eGFR 19 ML/MIN
[2025-05-03 05:09] LABS: INR 1.1 INR
--- NOTE | 2025-05-03 07:28 | VASCULAR REPORT ---
Bilateral lower extremity venous duplex Clinical History: Swelling. Comparison: None Findings: Duplex Doppler evaluation of the deep venous systems of both lower extremities from the common femora l veins to the popliteal veins including color Doppler and spectral/pulsed waveform analysis was perf ormed. RIGHT SIDE: The common femoral vein demonstrates appropriate compressibility and waveform variability. There is noncompressibility of the right greater saphenous vein consistent with thrombus. The femoral vein demonstrates appropriate compressibility and waveform variability. The deep femoral vein demonstrates appropriate compressibility and waveform variability. The popliteal vein demonstrates appropriate compressibility and waveform variability. There is normal compressibility at the tibioperoneal trunk. There is a groin lymph node measuring 4.6 x 1.2 x 3.4 cm. LEFT SIDE: The common femoral vein demonstrates appropriate compressibility and waveform variability. There is compressibility/patency of the great saphenous vein at the proximal thigh. The femoral vein demonstrates noncompressible thrombus. The popliteal vein demonstrates noncompressible thrombus. There is normal compressibility at the tibioperoneal trunk. There is a groin lymph node measuring 5.0 x 1.6 x 2.9 cm. There is a Veloz's cyst measuring 5.8 x 1.9 x 3.2 cm. Impression: 1. Noncompressible thrombus in the left femoral and popliteal veins of indeterminate chronicity. 2. No evidence of deep vein thrombosis in the right lower extremity. Superficial thrombus in the rig ht greater saphenous vein. 3. Enlarged bilateral inguinal lymph nodes.
[2025-05-03 07:51] VITALS: BP 150/74; PULSE 74; RESP 18; O2SAT 97
== END 2025-05-03 08:08 | disposition home or self-care (01) ==
LOC: ER 03:47
DX: I80.02 Phlebitis and thrombophlebitis of superficial vessels of left lower extremity (principal); I11.0 Hypertensive heart disease with heart failure; I50.9 Heart failure, unspecified; E11.9 Type 2 diabetes mellitus without complications; J44.9 Chronic obstructive pulmonary disease, unspecified; Z79.01 Long term (current) use of anticoagulants; Z79.899 Other long term (current) drug therapy; Z86.718 Personal history of other venous thrombosis and embolism; Z99.2 Dependence on renal dialysis
CPT/HCPCS: 36415; 80048; 85025; 85610; 93970; 99284

== ENCOUNTER 2025-05-15 11:27 | Emergency (ER) | payer MEDICARE ==
[~2025-05-15] VITALS: Ht 175.3 cm; Wt 91.8 kg
--- NOTE | 2025-05-15 12:31 | Physician Documentation ---
History of Present Illness ~ Chief Complaint: Leg Pain Stated Complaint: R LEG PAIN Time Seen by MD: 11:57 Primary Medical Doctor: Saul Mendosa MD HPI 69-year-old male presenting with right lower extremity pain. Patient was at dialysis earlier today. He finished dialysis but started having a lot of pain in his right lower leg specifically the back of his thigh as well as his calf and was sent to the emergency department. The patient was seen here a week ago for similar issues and had a ultrasound done of his lower extremities indicated a chronic versus subacute left lower extremity DVT as well as a superficial right thrombophlebitis. They were sent home. The patient is already on Eliquis in his compliant with his medications. He also states that some of the lymph nodes in his groin on the right side of become more swollen than usual and this has caused some increased pain. Denies any fever, chills, shortness of breath or any other associated symptoms. Tetanus witin 5 years: Yes Medication Reconciliation Allergies: Coded Allergies: No Known Allergies (Unverified , 05/15/25) Scheduled Amiodarone Hcl (Cordarone), 1 TAB PO DAILY, (Reported) Apixaban (Eliquis), 1 TAB PO Q12H, (Reported) Atorvastatin Calcium (LIPITOR tablet), 20 MG PO DAILY, (Reported) Calcium Acetate (Calcium Acetate), 2 CAP PO TID, (Reported) Carbidopa/Levodopa (Carbidopa-Levodopa 25-100 Tab), 1 TAB PO BID, (Reported) Furosemide (Furosemide), 1 TAB PO BID, (Reported) Scheduled PRN Hydrocodone Bit/Acetaminophen (Hydrocodon-Acetaminophn 10-325 tablet), 1 TAB PO TID PRN PRN for pain Miscellaneous Medications Insulin Glargine,Hum.rec.anlog (Basaglar Kwikpen U-100), (Reported) Midodrine HCl (Midodrine HCl), (Reported) Past Medical History Past Medical History: Congestive Heart Failure, Hypertension, COPD, Pneumonia, Diabetes, Deep Vein Thrombosis Past Surgical History: noncontributory Patient History: FH: diabetes mellitus Alcohol Use: None Lives with: Spouse Lives In: Home Occupation: employed Review of Systems All Other Systems at this time: Reviewed and Negative Physical Exam Vital Signs: Temperature: 81.0, Heart Rate: 82, Respiratory Rate: 18, BP: 157/71, Pulse Oximetry: 97, Weight: 91.820 Physical Exam I have reviewed the triage vitals. CONST: Well developed and well nourished. In no acute distress HENT: Head Atraumatic EYES: Pupils are equal, round and reactive to light. Normal conjunctiva NECK: Normal range of motion. Supple. CARDIO: Normal rate and regular rhythm. No murmurs, rubs, or gallops. S1, S2. PULM/CHEST: No respiratory distress. Lungs clear to auscultation. No wheeze ABD: Soft and nontender. Nondistended. Bowel sounds normal. No guarding. : Exam deferred MSK: Dialysis fistula in the left forearm. Bilateral lower extremities with no edema. The left lower extremity lower leg area partially shows some hyperpigmentation. Right lower extremity with mild tenderness to palpation over the hamstring as well as the upper calf. NEURO: Alert and oriented to person, place and time. Moving all extremities SKIN: Warm and dry. PSYCH: Normal mood and affect. Good eye contact. Progress Results/Orders Results/Orders Orders - BENITO GONZALES MD Chest,Single View (05/15/25 ) Vl Venous (05/15/25 12:27) Completed Orders - BENITO GONZALES MD Cbc/Diff (05/15/25 12:23) BMP (05/15/25 12:23) Oxycodone/Acetaminophen Tablet (Percocet (05/15/25 12:25) Chest,Single View (05/15/25 ) Vl Venous (05/15/25 12:27) Pt Inr (05/15/25 12:27) PTT (05/15/25 12:27) Vital Signs 05/15/25 05/15/25 05/15/25 05/15/25 11:45 12:58 12:58 13:31 Temp 81.0 81.0 Pulse 82 74 Resp 18 18 18 16 B/P (MAP) 157/71 150/75 (100) Pulse Ox 97 99 O2 Flow Rate 0 05/15/25 15:43 Pulse 88 Resp 16 B/P (MAP) 174/89 Pulse Ox 94 Laboratory Tests Test 05/15/25 12:44 White Blood Count 9.0 Red Blood Count 3.69 L Hemoglobin 10.8 L Hematocrit 31.8 L Mean Corpuscular Volume 86.1 Mean Corpuscular Hemoglobin 29.3 Mean Corpuscular Hemoglobin Concent 34.1 Red Cell Distribution Width 14.2 Platelet Count 186 Mean Platelet Volume 6.7 L Neutrophils (%) (Auto) 80.4 H Lymphocytes (%) (Auto) 6.8 L Monocytes (%) (Auto) 9.3 Eosinophils (%) (Auto) 3.0 Basophils (%) (Auto) 0.5 Neutrophils # (Auto) 7.2 Lymphocytes # (Auto) 0.6 L Monocytes # (Auto) 0.8 Eosinophils # (Auto) 0.3 Basophils # (Auto) 0.0 CBC Comment Prothrombin Time 10.8 INR International Normalized Ratio 1.1 Activated Partial Thromboplast Time 25 Coagulation Comments Sodium Level 134 L Potassium Level 3.3 L Chloride Level 96 L Carbon Dioxide Level 32.2 H Anion Gap 6 L Blood Urea Nitrogen 42 H Creatinine 2.50 H Estimated GFR/1.73 m2 26 BUN/Creatinine Ratio 16.8 Glucose Level 182 H Calcium Level 9.2 Albumin 3.7 Chemistry Comments EKG/XRAY/CT/US/VASC/MRI EKG : Additional Comment EKG as interpreted by [facility] indicating normal sinus rhythm, 79 bpm, normal axis, no ischemia Chest X-Ray : Additional Comments CHEST RADIOGRAPH Indication: n Technique: Single frontal view of the chest was obtained COMPARISON: CHEST,SINGLE VIEW on DOS: 02/06/22, CHEST,SINGLE VIEW on DOS: 02/03/22 FINDINGS: Lines and Tubes: None Lungs: Multifocal airspace disease Pleura: No effusion. No pneumothorax. Cardiomediastinal contours: Unremarkable Bones: Unremarkable IMPRESSION: Multifocal airspace disease Ultrasound : Impression Bilateral lower extremity venous duplex Clinical History: Phlebitis Comparison: VASC VL VENOUS on DOS: 05/03/25 Technique: Duplex Doppler evaluation of the deep venous system of the right hand left lower extremity from the common femoral vein to the popliteal vein including color Doppler and spectral/pulsed waveform analysis was performed. Findings/ IMPRESSION: No significant interval change since ultrasound dated 05/03/2025. Chronic thrombus is seen in the left distal femoral vein and popliteal vein. Visualized thrombus appears nonocclusive in the left popliteal vein and occlusive in the left distal femoral vein. Collateral vein is seen in the distal thigh providing flow proximal to visualize the occlusion in the femoral vein. This also suggest chronicity. The greater saphenous vein appears chronically occluded at the level of the d istal thigh in the possibly related to prior treatment. No other thrombus visualized in the bilateral lower extremities. All other vessels interrogated display normal compressibility with unremarkable flow characteristics noted throughout the bilateral lower extremities. No right DVT. Medical Decision Making Additional Comment 59-year-old male presenting with right leg pain after receiving dialysis. He r eports that he always gets pain right after dialysis. And this particular instance they were concerned about a potential DVT. Patient was seen a week ago and DVTs were discovered on the left, but these appeared chronic appearing. The patient is already on Eliquis and has been treated for this. Repeat ultrasound today was unchanged from prior. Specifically there was no DVT in the right where the patient has pain. I believe that this is more likely to be a muscul0- skeletal vs neuropathic pain. The patient was given some [place] here in the emergency department with good improvement of symptoms. I did prescribe him several tablets to take before and after dialysis sessions to help him with the pain that occurs. 15 tablets of [place] were prescribed. CURES checked and no suspicious activity seen. Advised to follow up with his dialysis sessions as well as with his diplomatic interpreter/translator and primary care physician and the next one to two weeks. Return to the ED with any acutely worsening symptoms. Departure Disposition: 01 HOME / SELF CARE / HOMELESS Impression: Primary Impression: Chronic pain Additional Impression: Deep vein thrombosis Condition: Stable Discharge Instructions: Deep Vein Thrombosis Additional Instructions: I will prescribe you some pain medication for your dialysis sessions. Take the pain medication before and after the session as needed for pain. Your DVT is stable and your on Eliquis. Please continue Eliquis. Follow up with your primary care provider as well as your diplomatic interpreter/translator within the next 1-2 weeks. Return to the ED with any acutely worsening symptoms. Referrals: NO PRIMARY CARE PROVIDER (PCP) Prescriptions Hydrocodone Bit/Acetaminophen (Hydrocodon-Acetaminophn 10-325 tablet) 10mg- 325mg Tablet 1 TAB PO TID PRN PRN for pain for 5 Days, #15 TAB Prov: BENITO GONZALES MD 05/15/25 Signature Scribe Signature: 1 Attestation: 1 BENITO GONZALES MD May 15, 2025 12:31
--- NOTE | 2025-05-15 12:51 | RADIOLOGY REPORT ---
CHEST RADIOGRAPH Indication: n Technique: Single frontal view of the chest was obtained COMPARISON: CHEST,SINGLE VIEW on DOS: 02/06/22, CHEST,SINGLE VIEW on DOS: 02/03/22 FINDINGS: Lines and Tubes: None Lungs: Multifocal airspace disease Pleura: No effusion. No pneumothorax. Cardiomediastinal contours: Unremarkable Bones: Unremarkable IMPRESSION: Multifocal airspace disease
[2025-05-15 12:58] VITALS: TEMP 81
[2025-05-15 13:12] LABS: MEAN PLATELET VOLUME 6.7 FL (7.4-10.4); RED CELL DISTRIBUTION WIDTH 14.2 % (11.5-14.5)
[2025-05-15 13:19] LABS: CREATININE 2.50 MG/DL (0.60-1.10); TOTAL CARBON DIOXIDE 32.2 MMOL/L (24-32); eCRCL 28 ML/MIN; eGFR 26 ML/MIN
[2025-05-15 13:23] LABS: APTT 25 SECONDS (22-32); INR 1.1 INR
--- NOTE | 2025-05-15 14:14 | VASCULAR REPORT ---
Bilateral lower extremity venous duplex Clinical History: Phlebitis Comparison: VASC VL VENOUS on DOS: 05/03/25 Technique: Duplex Doppler evaluation of the deep venous system of the right hand left lower extremity from the c ommon femoral vein to the popliteal vein including color Doppler and spectral/pulsed waveform analysi s was performed. Findings/ IMPRESSION: No significant interval change since ultrasound dated 05/03/2025. Chronic thrombus is seen in the left distal femoral vein and popliteal vein. Visualized thrombus appe ars nonocclusive in the left popliteal vein and occlusive in the left distal femoral vein. Collateral vein is seen in the distal thigh providing flow proximal to visualize the occlusion in the femoral v ein. This also suggest chronicity. The greater saphenous vein appears chronically occluded at the level of the distal thigh in the possi elias related to prior treatment. No other thrombus visualized in the bilateral lower extremities. All other vessels interrogated disp lay normal compressibility with unremarkable flow characteristics noted throughout the bilateral lowe r extremities. No right DVT.
[2025-05-15] MEDS ORDERED: HYDR-3972 PO (15:32)
[2025-05-15 15:43] VITALS: BP 174/89; PULSE 88; RESP 16; O2SAT 94
== END 2025-05-15 15:46 | disposition home or self-care (01) ==
LOC: ER 11:28
DX: I82.412 Acute embolism and thrombosis of left femoral vein (principal); I82.432 Acute embolism and thrombosis of left popliteal vein; E11.9 Type 2 diabetes mellitus without complications; I11.0 Hypertensive heart disease with heart failure; I50.9 Heart failure, unspecified; J44.9 Chronic obstructive pulmonary disease, unspecified; Z99.2 Dependence on renal dialysis
CPT/HCPCS: 36415; 71045; 80048; 85025; 85610; 85730; 93970; 99284

== ENCOUNTER 2025-09-07 04:59 | Emergency (ER) | payer MEDICARE ==
[~2025-09-07] VITALS: Ht 175.3 cm; Wt 105.5 kg
[~2025-09-07 04:59] MED LIST changes: -AMI200T PO; +DOCU-148 PO; +MIDO2.5T PO; -MIDO5TAB4; -PHO667C PO; +SEVE800T8 PO
[2025-09-07 06:57] LABS: MEAN PLATELET VOLUME 6.4 FL (7.4-10.4); RED CELL DISTRIBUTION WIDTH 13.5 % (11.5-14.5)
[2025-09-07 07:14] LABS: CREATININE 3.16 MG/DL (0.60-1.10); TOTAL CARBON DIOXIDE 30.0 MMOL/L (24-32); eCRCL 22 ML/MIN; eGFR 20 ML/MIN
--- NOTE | 2025-09-07 07:32 | RADIOLOGY REPORT ---
CLINICAL INDICATION: R facial mass TECHNIQUE: Noncontrast CT of the facial was performed. Sagittal and coronal reformatted images are provided. COMPARISON: None CT Dose: CTDI volume is 54.5 mGy. Dose-length product is 1133.9 mGy*cm FINDINGS: No fracture or dislocation. There is mucosal thickening in the right maxillary sinus. Nasal bone intact. Mastoid air cells are patent. There is a rounded soft tissue mass in the right cheek anterior to the right masseter muscle measuring 2.4 by 2.6 cm. No obvious fluid collection although assessment is limited without intravenous contrast. IMPRESSION: 1. 2.6 cm soft tissue mass in the right cheek anterior to the right masseter muscle. MRI of the face without and with intravenous contrast is recommended for further evaluation. 2. No acute facial fracture. 3. Mucosal thickening in the left maxillary sinus. All CT scans at this medical facility are performed using dose modulation techniques as appropriate to a performed exam including the following: Automated exposure control was utilized; adjustment of the MA and/or KV according to patient size; and use of iterative reconstruction technique.
[2025-09-07] MEDS: diazepam inj 5 MG/ML inj. IV ONE (09:15)
[2025-09-07 11:40] VITALS: TEMP 99
--- NOTE | 2025-09-07 14:36 | RADIOLOGY REPORT ---
PROCEDURE: MR MRI ORBITS FACE AND NECK Indication: R parotid mass COMPARISON: None TECHNIQUE: Multiplanar multisequence images of the face are obtained with and without contrast. FINDINGS: Examination severely degraded by motion. Heterogeneous T2 bright lesion within the right facial region Anterior to the masseter musculature measuring 2.6 x 2.6 cm. This lesion demonstrates enhancement. No definitive enhancement of the right masseter musculature. The parotid, holter technician, parapharyngeal spaces are preserved. Submandibular glands unremarkable. Right submandibular lymph node measuring 8 mm. Left submandibular lymph node measuring 8 mm. 6 mm right cervical jugulodigastric lymph node. IMPRESSION: Examination severely degraded by motion. Enhancing T2 bright mass/ lesion anterior to the right masseter musculature measuring 2.6 x 2.6 cm, within the right facial region. Recommend ENT /oncology consultation to evaluate for neoplasm and other etiologies.
[2025-09-07] MEDS: GADOTERATE MEGLUMINE 7.5 MMOL/15 ML VIAL IV ONE (14:37)
--- NOTE | 2025-09-07 15:23 | Physician Documentation ---
History of Present Illness ~ General Chief Complaint: Facial Swelling Stated Complaint: FACIAL SWELLING Time Seen by MD: 06:19 Primary Medical Doctor: Vipul Tinoco NP Mode of Arrival: POV, Ambulatory History of Present Illness Initial Comments 69 year old male reports that he was sent for an evaluation of a facial swelling that he has been noticing for about 2 months to the right side of his face. Denies fever, N/VD, facial pain, weight loss. Medication Reconciliation Allergies: Coded Allergies: No Known Allergies (Unverified , 07/09/25) Scheduled Apixaban (Eliquis), 1 TAB PO Q12H, (Reported) Atorvastatin Calcium (LIPITOR tablet), 20 MG PO DAILY, (Reported) Carbidopa/Levodopa (Carbidopa-Levodopa 25-100 Tab), 2 TAB PO TID, (Reported) Docusate Sodium (Colace), 1 CAP PO DAILY, (Reported) Furosemide (Furosemide), 1 TAB PO BID, (Reported) Sevelamer Carbonate (Renvela), 2 TAB PO TIDWM, (Reported) Scheduled PRN Midodrine Hcl* (Proamatine*), 5 MG PO PRN PRN for low blood pressure, (Reported) Miscellaneous Medications Insulin Glargine,Hum.rec.anlog (Basaglar Kwikpen U-100), (Reported) Past Medical History Past Medical History: Congestive Heart Failure, Hypertension, COPD, Pneumonia, Diabetes, Deep Vein Thrombosis Past Surgical History: noncontributory Patient History: FH: diabetes mellitus Smoking Status: Never smoker Alcohol Use: None Lives with: Spouse Lives In: Home Occupation: employed Review of Systems All Other Systems at this time: Reviewed and Negative Physical Exam Physical Exam Vital Signs: RN Vital Signs have been reviewed: Yes, Temperature: 99.0, Source: Oral, Heart Rate: 82, Respiratory Rate: 16, BP: 126/60, Pulse Oximetry: 94, Weight: 105.450 Oxygen Flow Rate: 0 Physical Exam General: Alert, no apparent distress. HEENT: firm, nonmobile subQ mass at the R parotid zone of the face; nontender, no erythema or induration. PERRL, EOMI Respiratory: Lungs clear, no respiratory distress. Extremities: Normal range of motion, no deformity. Neurologic: Oriented x4. Psychiatric: Normal mood and affect. Skin: Normal color, warm and dry. No edema, no ecchymosis. Progress Results/Orders Results/Orders Orders - ESAU JAY MD Ct Facial Bones/Soft Tissue (09/07/25 06:21) Mri Orbits Face And Neck (09/07/25 13:50) Completed Orders - ESAU JAY MD Ct Facial Bones/Soft Tissue (09/07/25 06:21) Cbc/Diff (09/07/25 06:21) CMP (09/07/25 06:21) Mri Orbits Face And Neck (09/07/25 13:50) Diazepam Inj (Valium Inj) (09/07/25 09:15) Gadoterate Meglum 7.5mmol/15ml (Dotarem (09/07/25 14:27) Medications Received in ER Medications (Trade) Dose Ordered Sig/Tatum Route PRN Reason Start Time Stop Time Status Last Admin Dose Admin (Valium inj) 5 mg ONCE ONCE IV 09/07/25 09:15 09/07/25 09:16 DC 09/07/25 12:49 5 MG Vital Signs 09/07/25 09/07/25 09/07/25 09/07/25 05:04 06:23 07:04 08:15 Temp 98.5 Pulse 83 89 84 Resp 18 16 16 18 B/P (MAP) 118/67 134/51 (78) 133/57 (82) Pulse Ox 97 95 95 O2 Flow Rate 0 0 0 09/07/25 09/07/25 09/07/25 09/07/25 10:25 11:40 12:41 12:49 Temp 99.0 Pulse 85 77 77 Resp 16 16 16 16 B/P (MAP) 146/79 (101) 127/67 (87) 131/58 (82) Pulse Ox 96 96 96 O2 Flow Rate 0 0 0 09/07/25 14:46 Pulse 82 Resp 16 B/P (MAP) 126/60 (82) Pulse Ox 94 O2 Flow Rate 0 Laboratory Tests Test 09/07/25 06:45 White Blood Count 12.6 H Red Blood Count 3.49 L Hemoglobin 10.2 L Hematocrit 30.3 L Mean Corpuscular Volume 86.8 Mean Corpuscular Hemoglobin 29.2 Mean Corpuscular Hemoglobin Concent 33.6 Red Cell Distribution Width 13.5 Platelet Count 229 Mean Platelet Volume 6.4 L Neutrophils (%) (Auto) 79.1 H Lymphocytes (%) (Auto) 8.3 L Monocytes (%) (Auto) 8.9 Eosinophils (%) (Auto) 3.0 Basophils (%) (Auto) 0.7 Neutrophils # (Auto) 10.0 H Lymphocytes # (Auto) 1.0 L Monocytes # (Auto) 1.1 H Eosinophils # (Auto) 0.4 Basophils # (Auto) 0.1 CBC Comment Sodium Level 134 L Potassium Level 4.1 Chloride Level 94 L Carbon Dioxide Level 30.0 Anion Gap 10 Blood Urea Nitrogen 39 H Creatinine 3.16 H Estimated GFR/1.73 m2 20 BUN/Creatinine Ratio 12.3 Glucose Level 140 H Calcium Level 9.3 Total Bilirubin 0.8 Aspartate Amino Transf (AST/SGOT) 22 Alanine Aminotransferase (ALT/SGPT) 9 L Alkaline Phosphatase 102 Total Protein 7.5 Albumin 3.8 Globulin 3.7 Albumin/Globulin Ratio 1.0 L Chemistry Comments Medical Decision Making Additional information obtaine: family Findings 69 year old male with R facial mass of unclear etiology. Obtained labs, CT, and MRI, without specific diagnosis other than it appears to be a parotid mass. Will refer to ENT surgery for biopsy. Return precautions have been discussed. Differential Diagnosis Ddx = neoplasm, sialadenitis, lymphadenopathy, dental infection Departure Disposition: 01 HOME / SELF CARE / HOMELESS Impression: Primary Impression: Parotid mass Discharge Instructions: Food Safety Eating Plan Referrals: NO PRIMARY CARE PROVIDER (PCP) ANSELMO DUNN MD, GARY A MD Education Educated: Patient, Family Educated regarding: diagnosis, treatment, prognosis, need for follow up Signature Scribe Signature: . Attestation: . ESAU JAY MD Sep 07, 2025 15:23
[2025-09-07 15:43] VITALS: BP 114/54; PULSE 79; RESP 16; O2SAT 95
== END 2025-09-07 15:44 | disposition home or self-care (01) ==
LOC: ER 05:00
DX: R22.1 Localized swelling, mass and lump, neck (principal); J44.9 Chronic obstructive pulmonary disease, unspecified; E11.9 Type 2 diabetes mellitus without complications; I11.0 Hypertensive heart disease with heart failure; I50.9 Heart failure, unspecified; Z86.718 Personal history of other venous thrombosis and embolism; Z79.899 Other long term (current) drug therapy
CPT/HCPCS: 36415; 70486; 70543; 80053; 85025; 96374; 99285; J3360